=== PATIENT | male | born 1960 | race Caucasian/White ===

== ENCOUNTER 2024-08-25 07:57 | Outpatient (CLI) | payer OTHER, SELFPAY ==
--- OUTSIDE RECORDS SUMMARY | 2024-08-25 07:59 | XMS_ITS | Continuity of Care Document ---
Author Name [facility] Organization [facility] Care Team Providers Care Attendant [employer] Name Role Phone [facility] Unavailable Unavailable Problems Combined list of problems from Department of Defense and Veterans Affairs facilities. It does not include entries that were removed or entered in error. Problem Status Onset Date Problem Type Date of Resolution Comments Source Exposure to potentially hazardous substance ([facility] [id number]) Active 024 Condition Jan 21, 2024 Entered By: MARÍA CURIEL Comment: [facility]A Documentation Initiative [facility] shoulder separation right Active Condition DoD lumbago Active Condition DoD sensorineural hearing loss Active Condition DoD eczema Active Condition DoD hyperlipidemia Active Condition DoD hearing loss Active Condition 46 yo w ith job related hearin loss needing audiometry eval DoD osteoarthritis knee Active Condition DoD osteoarthritis Active Condition s/p h yaluronic acid inj x 3 DoD bursitis olecranon Active Condition DoD new patient ophthalmological exam Inactive Condition DoD presbyopia Active Condition order 1st BF Rx: OD -0.50-2.08e777 OS -0.50-2.20q073 Add +1.00 OU DoD chondromalacia Active Condition GR1 CMP. DoD joint pain, localized in the shoulder Active Condition SEE NOTE. DoD osteoarthritis localized primary knee Active Condition Rt knee. [facility] visit for: screening exam hypertension Inactive Condition Pt w/elevated BP today. Pt has been referred for 5 day BP check. Mbr will be TDY for 2 wks and then start 5 day check. [facility] visit for: services physical Active Condition NAD//Please see DD form 4505. 10 year total coronary heart disease risk 4%. Continued to stress TLC. Will call with results. 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 Angle of jaw closed fracture Active Condition [facility] Ankle pain (SNOMED CT 526930991) Active Condition [facility] Appendectomy Active Condition [facility] Louie's esophagus Active Condition [facility] Chronic rhinitis Active Condition [facility] Contact dermatitis of eyelid Active Condition [facility] Dermatitis (SNOMED CT 80768456) Active Condition [facility] DS EXPOSURE TO OIL-WELL FIRE SMOKE Active Condition [facility] DS/OIF EXPOSURE TO CONNIE-8 FUEL AND EXHAUST Active Condition [facility] DS/OIF EXPOSURE TO SAND/DUST STORMS Active Condition [facility] Dyslipidemia Active Condition [facility] Elbow joint pain Active Condition [facility] Erectile dysfunction (SNOMED CT 636699731) Active Condition [facility] Gastroesophageal reflux disease (SNOMED CT 468678607) Active Condition [facility] Iron deficiency Active Condition [facility] Low back pain (SNOMED CT 211190757) Active Condition [facility] Obesity Active Condition [facility] Obstructive sleep apnea of adult (SNOMED CT [id number]) Active Condition Nov 18, 2023 Entered By: TALITA GERBER Comment: apap 6-15 [facility] OIF EXPOSURE TO BURN PIT SMOKE Active Condition [facility] OIF EXPOSURE TO TRIETHYLCHOLINE Active Condition [facility] Open Treatment of Acute or Chronic Elbow Dislocation Active Condition [facility] Osteoarthritis of right hip joint (SNOMED CT 862882321313801) Active Condition Dec 25 2 Entered By: DEMETRIUS RAO Comment: R kneeFeb 2011 Entered By: DEMETRIUS RAO Comment: has done pt and injections- steroids and lubricating injects [facility] Osteoarthritis of right knee joint Active Condition [facility] Other Psoriasis Active Condition [facility] Pain of right shoulder joint Active Condition [facility] Restless legs Active Condition [facility] Vasectomy Status Active Condition [facility] Diagnosis: ICD-10-CM Z23 Encounter for immunization Active Diagnosis [facility] Diagnosis: ICD-10-CM H90.3 Sensorineural hearing loss, bilateral Active Diagnosis [facility] Diagnosis: ICD-10-CM Z01.20 Encounter for dental exam and cleaning w/o abnormal findings Active Diagnosis [facility] Diagnosis: ICD-10-CM H25.13 Age-related nuclear cataract, bilateral Active Diagnosis [facility] Diagnosis: ICD-10-CM E78.5 Hyperlipidemia, unspecified Active Diagnosis [facility] Diagnosis: ICD-10-CM M72.2 Plantar fascial fibromatosis Active Diagnosis [facility] Diagnosis: ICD-10-CM R09.81 Nasal congestion Active Diagnosis [facility] Diagnosis: ICD-10-CM J01.91 Acute recurrent sinusitis, unspecified Active Diagnosis [facility] Diagnosis: ICD-10-CM G47.33 Obstructive sleep apnea (adult) (pediatric) Active Diagnosis [facility] Diagnosis: ICD-10-CM J31.0 Chronic rhinitis Active Diagnosis [facility] Diagnosis: ICD-10-CM J01.90 Acute sinusitis, unspecified Active Diagnosis [facility] Diagnosis: ICD-10-CM L82.1 Other seborrheic keratosis Active Diagnosis [facility] Diagnosis: ICD-10-CM R21 Rash and other nonspecific skin eruption Active Diagnosis [facility] Diagnosis: ICD-10-CM Z46.1 Encounter for fitting and adjustment of hearing aid Active Diagnosis [facility] Diagnosis: ICD-10-CM K22.70 Louie's esophagus without dysplasia Active Diagnosis [facility] Diagnosis: ICD-10-CM M17.11 Unilateral primary osteoarthritis, right knee Active Diagnosis [facility] Medications Combined list of outpatient medications from Department of Defense and Veterans Affairs facilities.Medications provided include 1) outpatient medications from the last 15 months, and 2) patient-reported medications. Medication Details Route Status Patient Instructions Prescription Expires Prescription Number Last Dispense Date Ordering Provider Order Date Order Qty Source ACETAMINOPH EN 500MG TAB TAKE ONE TO TWO TABLETS EVERY 6 HOURS NEEDED FOR PAIN *NOT TO EXCEED 4000MG IN 24 HOURS FROM ALL SOURCES* ACTIVE 03/16/2025 [id number] 4 Demetria SMALL 2023 100 [facility] ACETAMINOPH EN 500MG TAB TAKE ONE TO TWO TABLETS EVERY 6 HOURS NEEDED FOR PAIN *NOT TO EXCEED 4000MG IN 24 HOURS FROM ALL SOURCES* DISCONT INUED 03/17/2024 [id number] 3 Demetria SMALL 2022 100 [facility] ACETAMINOPH EN 500MG TAB TAKE TWO TABLETS BY MOUTH AT BEDTIME ORAL ACTIVE DEANDRA DAMICO GLEN 2017 [facility] AMOXICILLIN TRIHYDRATE 500MG CAP TAKE FOUR CAPSULES BY MOUTH ONCE 1 HOUR PRIOR TO DENTAL PROCEDUR E ORAL 03/17/2024 [id number] Demetria SMALL 2022 4 [facility] AMOXICILLIN TRIHYDRATE 875MG/CLAVU LANATE K 125MG TAB TAKE 1 TABLET BY MOUTH TWICE A DAY FOR ACUTE SINUSITI S ORAL 02/23/2024 [id number] Demetria SMALL 2023 10 [facility] AMOXICILLIN -CLAVULANAT E POTASS (amoxicilli n/potassium clavulanate ), 875-125 MG, TABLET, ORAL, USANTIBIOTI CS,, 20 ea. BOTTLE Active [id number] 2023 20 Pharmac y [facility] y Benzonatate (The Switch) 100 CAPSULE in 1 BOTTLE Active [id number] 11/24/19 2 4 2023 30 Pharmac y [facility] y CETIRIZINE HCL 10MG TAB TAKE ONE TABLET BY MOUTH EVERY DAY FOR ALLERGIE S ORAL ACTIVE 01/24/2025 [id number] 4 Demetria SMALL 2023 90 [facility] CETIRIZINE HCL 10MG TAB TAKE ONE TABLET BY MOUTH EVERY DAY FOR ALLERGIE S ORAL DISCONT INUED 03/17/2024 [id number] Demetria SMALL 2022 90 [facility] DICLOFENAC NA 1% GEL,TOP APPLY 2 GRAMS TOPICALL Y FOUR TIMES A DAY NEEDED TO AFFECTED AREA FOR PAIN TOPICA L ACTIVE 03/16/2025 [id number] Demetria SMALL 2023 100 [facility] DICLOFENAC NA 1% GEL,TOP APPLY 2 GRAMS TOPICALL Y FOUR TIMES A DAY NEEDED TO AFFECTED AREA FOR PAIN. *USE DOSE CARD IN BOX TO MEASURE DOSE. MAX 32 GRAMS PER DAY. FOR SHOULDER PAIN TO AFFECTED AREA FOR PAIN. *USE DOSE CARD IN BOX TO MEASURE DOSE. MAX 32 GRAMS PER DAY. FOR SHOULDER PAIN TOPICA L DISCONT INUED 03/17/2024 [id number] Demetria SMALL GLEN 2022 100 [facility] FLUTICASONE PROPIONATE 50MCG/SPRAY SOLN,NASAL, 16GM SPRAY 2 SPRAYS IN EACH NOSTRIL EVERY DAY FOR ALLERGIE S NASAL SUSPEND ED 01/24/2025 [id number] Demetria SMALL SJ GLEN 2023 3 [facility] FLUTICASONE PROPIONATE 50MCG/SPRAY SOLN,NASAL, 16GM SPRAY 2 SPRAYS IN EACH NOSTRIL EVERY DAY FOR ALLERGIE S NASAL DISCONT INUED 03/17/2024 [id number] 4 GEOVANNYDemetria SJ CARROLL 2022 3 [facility] MECLIZINE HCL 25MG TAB,CHEWABL E CHEW ONE TABLET BY MOUTH THREE TIMES A DAY NEEDED FOR MOTION SICKNESS ORAL ACTIVE 03/16/2025 [id number] GEOVANNYDemetria 2023 30 [facility] MULTIVITAMI NS CAP/TAB TAKE 1 TABLET BY MOUTH EVERY DAY ORAL ACTIVE 03/16/2025 [id number] 4 GEOVANNYDemetria SJ CARROLL 2023 100 [facility] MULTIVITAMI NS CAP/TAB TAKE 1 TABLET BY MOUTH EVERY DAY ORAL DISCONT INUED 03/17/2024 [id number] Demetria SMALL SJ BEGUMTH 2022 100 [facility] OMEPRAZOLE 20MG CAP,EC TAKE ONE CAPSULE BY MOUTH EVERY DAY ON AN EMPTY STOMACH, AT LEAST 30 MINUTES PRIOR TO A MEAL TO DECREASE STOMACH ACID ORAL ACTIVE 03/16/2025 [id number] 4 GEOVANNYDemetria SJ CARROLL 2023 90 [facility] OMEPRAZOLE 20MG CAP,EC TAKE ONE CAPSULE BY MOUTH EVERY DAY ON AN EMPTY STOMACH, AT LEAST 30 MINUTES PRIOR TO A MEAL TO DECREASE STOMACH ACID ORAL DISCONT INUED 03/17/2024 [id number] 4 GEOVANNYDemetria SJ ROQUEBETH 2022 90 [facility] PRAVASTATIN NA 40MG TAB TAKE ONE TABLET BY MOUTH AT BEDTIME FOR CHOLESTE ROL ORAL ACTIVE 03/16/2025 [id number] GEOVANNYDemetria SJ ROQUEBETH 2023 60 [facility] PSEUDOEPHED RINE HCL 60MG TAB TAKE ONE TABLET BY MOUTH EVERY 6 HOURS NEEDED FOR CONGESTI ON ORAL 11/18/2023 [id number] LALY VERA E 2022 120 [facility] SIL[facility] 100MG TAB TAKE ONE-HALF TABLET BY MOUTH NEEDED FOR ERECTION S - TAKE 1 HOUR BEFORE ANTICIPA PATRIA SEXUAL ACTIVITY ORAL ACTIVE 03/16/2025 [id number] 4 GEOVANNYDemetria SJ ROQUEBETH 2023 9 [facility] SILDENAFIL CITRATE 100MG TAB TAKE ONE-HALF TABLET BY MOUTH NEEDED FOR ERECTION S - TAKE 1 HOUR BEFORE ANTICIPA PATRIA SEXUAL ACTIVITY ORAL DISCONT INUED 03/17/2024 [id number] 3 Demetria SMALL SJ ROQUEBETH 2022 9 [facility] SODIUM CHLORIDE 0.65% SOLN,NASAL SPRAY SPRAY 1-2 SPRAYS IN EACH NOSTRIL EVERY DAY NEEDED FOR NASAL DRYNESS NASAL 11/18/2023 [id number] LALY VERA E 2022 45 [place] [facility] VANICREAM APPLY THIN LAYER TOPICALL Y EVERY DAY TO ALL SKIN, IDEALLY WITHIN 3 MINUTES AFTER BATH OR SHOWER. TOPICA L ACTIVE 03/16/2025 [id number] 4 Demetria SMALL SJ ROQUEBETH 2023 454 [facility] VANICREAM APPLY THIN LAYER TOPICALL Y EVERY DAY TO ALL SKIN, IDEALLY WITHIN 3 MINUTES AFTER BATH OR SHOWER. TOPICA L DISCONT INUED 03/17/2024 [id number] 3 Demetria SMALL 2022 454 [facility] Allergies, Adverse Reactions, Alerts Combined list of allergies from Department of [facility] and [facility] facilities. It does not include entries that were removed or entered in error. Substance Category Reaction Severity Reaction type Status Date Reported Comments Source Morphine Drug allergy (disorder) Urticaria active 5 [facility] MORPHINE SULFATE INJ Propensity to adverse reactions to drug (finding) Urticaria active 5 [facility] Immunizations Combined list of available immunizations from the Department of [facility] and [facility] facilities. Immunization Series Date Given Administered By Site Reaction Lot Number CVX Code Drug Directional Driller Status Comments Source INFLUENZA, SPLIT VIRUS, TRIVALENT, PF 2023 DORETHA HARRISON LEFT DELTO ID [id number] 140 complet ed [facility] INFLUENZA, INJECTABLE, QUADRIVALENT, PRESERVATIVE FREE 2022 SALAS EDWARDS LEFT DELTO ID [id number] 150 complet ed [facility] ZOSTER RECOMBINANT 2 2022 SALAS EDWARDS LEFT DELTO ID [id number] 187 complet ed [id number] 07/04/24 [facility] ZOSTER RECOMBINANT 1 2022 TOAN EASTON LEFT DELTO ID [id number] 187 complet ed [id number] [facility] INFLUENZA, INJECTABLE, QUADRIVALENT, PRESERVATIVE FREE 2021 150 complet ed [facility] COVID-19 (PFIZER), MRNA, LNP-S, PF, 30 MCG/0.3 ML DOSE 3 2020 208 complet ed PFR; [id number]; 2 [facility] INFLUENZA, INJECTABLE, QUADRIVALENT, PRESERVATIVE FREE 2020 150 complet ed [facility] TDAP 2020 115 complet ed [facility] COVID-19 (MODERNA), MRNA, LNP-S, PF, 100 MCG/0.5 ML DOSE 2 2020 207 complet ed [place] [facility] COVID-19 (MODERNA), MRNA, LNP-S, PF, 100 MCG/0.5 ML DOSE 1 2020 207 [facility], INJECTABLE, QUADRIVALENT, PRESERVATIVE FREE 2019 150 complet ed [facility] INFLUENZA, INJECTABLE, QUADRIVALENT 2018 158 complet ed Partner: [facility]. Administe red by: [facility] Clinician (NPI=Not Provided) . Partner 3 Lot#: [id number] Mfr: [facility] INFLUENZA, SEASONAL, INJECTABLE, PRESERVATIVE FREE 2017 140 complet ed [facility] INFLUENZA, INJECTABLE, MDCK, PRESERVATIVE FREE, QUADRIVALENT 2016 171 complet ed Partner: [facility] . Administe red by: [facility] Clinician (NPI=Not Provided) . Partner 3 Lot#: [id number] Mfr: [facility] INFLUENZA, SEASONAL, INJECTABLE, PRESERVATIVE FREE [address] [facility] TDAP 2015 115 complet ed [employer], Lot [id number], Exp 8 [facility] TDAP 2008 115 complet ed [facility] tetanus toxoid, reduced diphtheria toxoid, and acellular pertu is vaccine, adsorbed 1 2007 Unknown, Provider [id number] Sanofi Pasteur ([facility]) complet ed tetanus toxoid, reduced diphtheri a toxoid, and acellular pertussis vaccine, adsorbed [facility] influenza virus vaccine, live, attenuated, for intranasal use 1 2006 Unknown, Provider [id number] [employer] ([facility]) complet ed influenza virus vaccine, live, attenuate d, for intranasa l use DoD influenza virus vaccine, split virus (incl. purified surface antigen)-reti red CODE 1 2005 [id number] Sanofi Pasteur ([facility]) complet ed influenza virus vaccine, split virus (incl. purified surface antigen)- retired CODE DoD influenza virus vaccine, split virus (incl. purified surface antigen)-reti red CODE 1 2004 UNK 15 Unknown (UNK) comple t ed influenza virus vaccine, split virus (incl. purified surface antigen)- retired CODE DoD anthrax vaccine 4 2003 [id number] [employer] ([facility]) complet ed anthrax vaccine DoD influenza virus vaccine, whole virus 0 2002 [id number] [employer] (PW[facility]) complet ed influenza virus vaccine, whole virus DoD anthrax vaccine 3 2002 24 Transcribed (TRS) complet ed anthrax vaccine DoD anthrax vaccine 2 2002 [id number] [employer] [facility] ([facility]) complet ed anthrax vaccine DoD vaccinia (smallpox) vaccine, diluted 0 2002 [id number] Wy[employer]Ayer[employer] ([facility]) complet ed vaccinia (smallpox ) vaccine, diluted DoD anthrax vaccine 1 2002 [id number] [employer] [facility] ([facility]) complet ed anthrax vaccine DoD influenza virus vaccine, whole virus 0 2001 [id number] 16 Sanofi Pasteur ([facility]) complet ed influenza virus vaccine, whole virus [facility] meningococcal polysaccharid e vaccine (MPSV4) 0 2001 [id number] Sanofi Pasteur ([facility]) complet ed meningoco ccal polysacch aride vaccine (MPSV4) DoD typhoid vaccine, parenteral, other than acetone-kille d, dried 0 2001 [id number] Sanofi Pasteur ([facility]) complet ed typhoid vaccine, parentera l, other than acetone-k illed, dried DoD influenza virus vaccine, whole virus 0 2000 [id number] Sanofi Pasteur ([facility]) complet ed influenza virus vaccine, whole virus [facility] tetanus and diphtheria toxoids, adsorbed, preservative free, for adult use (2 Lf of tetanus toxoid and 2 Lf of diphtheria toxoid) 0 1996 [id number] Lederle (LED) comple t ed tetanus and diphtheri a toxoids, adsorbed, preservat cristiana free, for adult use (2 Lf of tetanus toxoid and 2 Lf of diphtheri a toxoid) DoD influenza virus vaccine, whole virus 0 [id number] [employer]Ayer[employer] (Inactive) ([place]) complet ed influenza virus vaccine, whole virus DoD hepatitis A vaccine, adult dosage 2 1996 [id number] [employer] (SKB) complet ed hepatitis A vaccine, adult dosage DoD tuberculin skin test; purified protein derivative solution, intradermal 1 1992 Unknown, Provider CON 96 Juan Jantoine (CON) complet ed tuberculi n skin test; purified protein derivativ e solution, intraderm al DoD meningococcal polysaccharid e vaccine (MPSV4) 1 1991 32 (MV) complet ed meningoco ccal polysacch aride vaccine (MPSV4) DoD hepatitis A vaccine, adult dosage 1 1991 52 (MV) complet ed hepatitis A vaccine, adult dosage DoD yellow fever vaccine 1 1991 37 (MV) complet ed yellow fever vaccine DoD typhoid vaccine, parenteral, acetone-kille d, dried (U.S. ) 1 1991 53 (MV) complet ed typhoid vaccine, parentera l, acetone-k illed, dried ([place].S. ) DoD trivalent poliovirus vaccine, live, oral 1 1985 02 (MV) complet ed trivalent polioviru s vaccine, live, oral DoD measles, mumps and rubella virus vaccine 0 1985 03 () Not Given measles, mumps and rubella virus vaccine DoD tetanus and diphtheria toxoids, adsorbed, preservative free, for adult use (2 Lf of tetanus toxoid and 2 Lf of diphtheria toxoid) 1 1985 09 (MV) complet ed tetanus and diphtheri a toxoids, adsorbed, preservat cristiana free, for adult use (2 Lf of tetanus toxoid and 2 Lf of diphtheri a toxoid) DoD Results Combined list of recent chemistry, hematology and other laboratory results from Department of Defense and Veterans Affairs, ranging from 15 months to all on record, depending upon the facility. Order Name Results Value Reference Range Date Interpretation Specimen Comments Source AST/SGOT ASPARTATE AMINOTRANSF ERASE [ENZYMATIC ACTIVITY/VO LUME] IN SERUM OR PLASMA 28 U/L 11 - 34 05/30 Specimen Type: PLASMA No comment entered. Ordering Provider: DEANDRA SMALL Report Released Date/Time: March 15, 2024 08:34 AM Reporting Lab: [facility] [address] Performing Lab: [facility] [address] [place] [facility] ALT/SGPT ALANINE AMINOTRANSF ERASE [ENZYMATIC ACTIVITY/VO LUME] IN SERUM OR PLASMA 21 U/L <44 - 44 05/30 Specimen Type: PLASMA No comment entered. Ordering Provider: DEANDRA SMALL Report Released Date/Time: March 15, 2024 08:34 AM Reporting Lab: [facility] [address] Performing Lab: [facility] [address] [place] [facility] LIPID PANEL,NON -FASTING CHOLESTEROL [MASS/VOLUM E] IN SERUM OR PLASMA 174 mg/dL <199 - 199 05/30 Specimen Type: PLASMA No comment entered. Ordering Provider: DEANDRA SMALL Report Released Date/Time: March 15, 2024 08:34 AM Reporting Lab: [facility] [address] Performing Lab: [facility] [address] [place] [facility] LIPID PANEL,NON -FASTING CHOLESTEROL IN HDL [MASS/VOLUM E] IN SERUM OR PLASMA 48 mg/dL 40 05/30 Specimen Type: PLASMA No comment entered. Ordering Provider: DEANDRA SMALL Report Released Date/Time: March 15, 2024 08:34 AM Reporting Lab: [facility] [address] Performing Lab: [facility] [address] [place] [facility] LIPID PANEL,NON -FASTING CHOLESTEROL IN LDL [MASS/VOLUM E] IN SERUM OR PLASMA BY CALCULATION 98 mg/dL <99 - 99 05/30 Specimen Type: PLASMA No comment entered. Ordering Provider: DEANDRA SMALL Report Released Date/Time: March 15, 2024 08:34 AM Reporting Lab: [facility] [address] Performing Lab: [facility] [address] [place] [facility] LIPID PANEL,NON -FASTING CHOLESTEROL IN VLDL [MASS/VOLUM E] IN SERUM OR PLASMA BY CALCULATION 28 mg/dL <29 - 29 05/30 Specimen Type: PLASMA No comment entered. Ordering Provider: DEANDRA SMALL Report Released Date/Time: March 15, 2024 08:34 AM Reporting Lab: [facility] [address] Performing Lab: [facility] [address] [place] [facility] LIPID PANEL,NON -FASTING CHOLESTEROL NON HDL [MASS/VOLUM E] IN SERUM OR PLASMA 126 mg/dL <129 - 129 05/30 Specimen Type: PLASMA No comment entered. Ordering Provider: DEANDRA SMALL Report Released Date/Time: March 15, 2024 08:34 AM Reporting Lab: [facility] [address] Performing Lab: [facility] [address] [place] [facility] LIPID PANEL,NON -FASTING TRIGLYCERID E [MASS/VOLUM E] IN SERUM OR PLASMA 142 mg/dL <149 - 149 05/30 Specimen Type: PLASMA No comment entered. Ordering Provider: DEANDRA SMALL Report Released Date/Time: March 15, 2024 08:34 AM Reporting Lab: [facility] [address] Performing Lab: [facility] [address] [place] [facility] AST/SGOT ASPARTATE AMINOTRANSF ERASE [ENZYMATIC ACTIVITY/VO LUME] IN SERUM OR PLASMA 35 U/L <34 - 34 03/15 H Specimen Type: PLASMA Comment: Elevated triglycerid e result from a non-fasting specimen should be interpreted with caution. A fasting panel is recommended for accurate triglycerid es when trigs are >200 from a non-fasting specimen. Ordering Provider: DEANDRA SMALL Report Released Date/Time: March 17, 2023 09:36 AM Reporting Lab: [facility] [address] Performing Lab: [facility] [address] [place] [facility] ALT/SGPT ALANINE AMINOTRANSF ERASE [ENZYMATIC ACTIVITY/VO LUME] IN SERUM OR PLASMA 50 U/L <55 - 55 03/15 Specimen Type: PLASMA Comment: Elevated triglycerid e result from a non-fasting specimen should be interpreted with caution. A fasting panel is recommended for accurate triglycerid es when trigs are >200 from a non-fasting specimen. Ordering Provider: DEANDRA SMALL Report Released Date/Time: March 17, 2023 09:36 AM Reporting Lab: [facility] [address] Performing Lab: [facility] [address] [place] [facility] HEMOGLOBI N A1C HEMOGLOBIN A1C/HEMOGLO BIN.TOTAL IN BLOOD 5.6 4.0 - 6.0 03/15 Specimen Type: BLOOD Comment: Values obtained from A1C measurement s can vary. For typical A1C assays, a reported value of 7.0 could actually be between 6.7 and 7.3 if measured by a reference method. A reported value of 9.0 could actually be between 8.7 and 9.3. Ref: [email or web address]/[place] [email or web address] Ordering Provider: DEANDRA SMALL Report Released Date/Time: March 17, 2023 09:36 AM Reporting Lab: [facility] [address] Performing Lab: [place] [id number] [facility] CBC LEUKOCYTES [#/VOLUME] IN BLOOD BY AUTOMATED COUNT 6.00 10*3/u L 4.0 - 11.0 03/15 Specimen Type: BLOOD No comment entered. Ordering Provider: DEANDRA SMALL Report Released Date/Time: March 17, 2023 09:36 AM Reporting Lab: [facility] [address] Performing Lab: [facility] [address] [place] [facility] CBC ERYTHROCYTE S [#/VOLUME] IN BLOOD BY AUTOMATED COUNT 5.49 10*6/u L 4.6 - 6.2 03/15 Specimen Type: BLOOD No comment entered. Ordering Provider: DEANDRA SMALL Report Released Date/Time: March 17, 2023 09:36 AM Reporting Lab: [facility] [address] Performing Lab: [place] [address] [facility] IS [facility] CBC HEMOGLOBIN [MASS/VOLUM E] IN BLOOD 15.7 g/dL 13.5 - 17.9 03/15 Specimen Type: BLOOD No comment entered. Ordering Provider: DEANDRA SMALL Report Released Date/Time: March 17, 2023 09:36 AM Reporting Lab: [facility] [address] Performing Lab: [facility] [address] [place] [facility] CBC HEMATOCRIT [VOLUME FRACTION] OF BLOOD BY AUTOMATED COUNT 48.9 41 - 54 03/15 Specimen Type: BLOOD No comment entered. Ordering Provider: DEANDRA SMALL Report Released Date/Time: March 17, 2023 09:36 AM Reporting Lab: [facility] [address] Performing Lab: [facility] [address] [place] [facility] CBC MCV [ENTITIC VOLUME] BY AUTOMATED COUNT 89.1 fL 80 - 100 03/15 Specimen Type: BLOOD No comment entered. Ordering Provider: DEANDRA SMALL Report Released Date/Time: March 17, 2023 09:36 AM Reporting Lab: [facility] [address] Performing Lab: [facility] [address] [place] [facility] CBC MCH [ENTITIC MASS] BY AUTOMATED COUNT 28.6 pg 27 - 33 03/15 Specimen Type: BLOOD No comment entered. Ordering Provider: DEANDRA SMALL Report Released Date/Time: March 17, 2023 09:36 AM Reporting Lab: [facility] [address] Performing Lab: [facility] [address] [place] [facility] CBC MCHC [MASS/VOLUM E] BY AUTOMATED COUNT 32.1 g/dL 32.0 - 37.5 03/15 Specimen Type: BLOOD No comment entered. Ordering Provider: DEANDRA SMALL Report Released Date/Time: March 17, 2023 09:36 AM Reporting Lab: [facility] [address] Performing Lab: [facility] [address] [place] [facility] CBC PLATELETS [#/VOLUME] IN BLOOD BY AUTOMATED COUNT 222 10*3/u L 150 - 400 03/15 Specimen Type: BLOOD No comment entered. Ordering Provider: DEANDRA SMALL Report Released Date/Time: March 17, 2023 09:36 AM Reporting Lab: [facility] [address] Performing Lab: [facility] [address] [place] [facility] CBC PLATELET MEAN VOLUME [ENTITIC VOLUME] IN BLOOD BY AUTOMATED COUNT 10.2 fL 7.4 - 10.4 03/15 Specimen Type: BLOOD No comment entered. Ordering Provider: DEANDRA SMALL Report Released Date/Time: March 17, 2023 09:36 AM Reporting Lab: [facility] [address] Performing Lab: [facility] [address] [facility] CBC ERYTHROCYTE DISTRIBUTIO N WIDTH [RATIO] BY AUTOMATED COUNT 13.7 11.5 - 14.5 03/15 Specimen Type: BLOOD No comment entered. Ordering Provider: DEANDRA SMALL Report Released Date/Time: March 17, 2023 09:36 AM Reporting Lab: [facility] [address] Performing Lab: [facility] [address] [facility] LIPID PANEL,NON -FASTING CHOLESTEROL [MASS/VOLUM E] IN SERUM OR PLASMA 238 mg/dL <199 - 199 03/15 H Specimen Type: PLASMA Comment: Elevated triglycerid e result from a non-fasting specimen should be interpreted with caution. A fasting panel is recommended for accurate triglycerid es when trigs are >200 from a non-fasting specimen. Ordering Provider: DEANDRA SMALL Report Released Date/Time: March 17, 2023 09:36 AM Reporting Lab: [facility] [address] Performing Lab: [facility] [address] [facility] IS [facility] LIPID PANEL,NON -FASTING CHOLESTEROL IN HDL [MASS/VOLUM E] IN SERUM OR PLASMA 46 mg/dL 40 03/15 Specimen Type: PLASMA Comment: Elevated triglycerid e result from a non-fasting specimen should be interpreted with caution. A fasting panel is recommended for accurate triglycerid es when trigs are >200 from a non-fasting specimen. Ordering Provider: DEANDRA SMALL Report Released Date/Time: March 17, 2023 09:36 AM Reporting Lab: [facility] [address] Performing Lab: [facility] [address] [place] [facility] LIPID PANEL,NON -FASTING CHOLESTEROL IN LDL [MASS/VOLUM E] IN SERUM OR PLASMA BY CALCULATION 136 mg/dL <99 - 99 03/15 H Specimen Type: PLASMA Comment: Elevated triglycerid e result from a non-fasting specimen should be interpreted with caution. A fasting panel is recommended for accurate triglycerid es when trigs are >200 from a non-fasting specimen. Ordering Provider: DEANDRA SMALL Report Released Date/Time: March 17, 2023 09:36 AM Reporting Lab: [facility] [address] Performing Lab: [facility] [address] [place] [facility] LIPID PANEL,NON -FASTING CHOLESTEROL IN VLDL [MASS/VOLUM E] IN SERUM OR PLASMA BY CALCULATION 56 mg/dL <29 - 29 03/15 H Specimen Type: PLASMA Comment: Elevated triglycerid e result from a non-fasting specimen should be interpreted with caution. A fasting panel is recommended for accurate triglycerid es when trigs are >200 from a non-fasting specimen. Ordering Provider: DEANDRA SMALL Report Released Date/Time: March 17, 2023 09:36 AM Reporting Lab: [facility] [address] Performing Lab: [facility] [address] [place] [facility] LIPID PANEL,NON -FASTING CHOLESTEROL NON HDL [MASS/VOLUM E] IN SERUM OR PLASMA 192 mg/dL <129 - 129 03/15 H Specimen Type: PLASMA Comment: Elevated triglycerid e result from a non-fasting specimen should be interpreted with caution. A fasting panel is recommended for accurate triglycerid es when trigs are >200 from a non-fasting specimen. Ordering Provider: DEANDRA SMALL Report Released Date/Time: March 17, 2023 09:36 AM Reporting Lab: [facility] [address] Performing Lab: [facility] [address] [place] [facility] LIPID PANEL,NON -FASTING TRIGLYCERID E [MASS/VOLUM E] IN SERUM OR PLASMA 279 mg/dL <149 - 149 03/15 H Specimen Type: PLASMA Comment: Elevated triglycerid e result from a non-fasting specimen should be interpreted with caution. A fasting panel is recommended for accurate triglycerid es when trigs are >200 from a non-fasting specimen. Ordering Provider: DEANDRA SMALL Report Released Date/Time: March 17, 2023 09:36 AM Reporting Lab: [facility] [address] Performing Lab: [place] [address] [place] [facility] BASIC METABOLIC PANEL+MG CREATININE [MASS/VOLUM E] IN SERUM OR PLASMA 1.1 mg/dL 0.7 - 1.2 03/15 Specimen Type: PLASMA Comment: Elevated triglycerid e result from a non-fasting specimen should be interpreted with caution. A fasting panel is recommended for accurate triglycerid es when trigs are >200 from a non-fasting specimen. Ordering Provider: DEANDRA SMALL Report Released Date/Time: March 17, 2023 09:36 AM Reporting Lab: [facility] [address] Performing Lab: [facility] [address] [place] [facility] BASIC METABOLIC PANEL+MG UREA NITROGEN [MASS/VOLUM E] IN SERUM OR PLASMA 20 mg/dL 8 - 26 03/15 Specimen Type: PLASMA Comment: Elevated triglycerid e result from a non-fasting specimen should be interpreted with caution. A fasting panel is recommended for accurate triglycerid es when trigs are >200 from a non-fasting specimen. Ordering Provider: DEANDRA SMALL Report Released Date/Time: March 17, 2023 09:36 AM Reporting Lab: [facility] [address] Performing Lab: [facility] [address] [place] [facility] BASIC METABOLIC PANEL+MG GLUCOSE [MASS/VOLUM E] IN SERUM OR PLASMA 94 mg/dL 70 - 100 03/15 Specimen Type: PLASMA Comment: Elevated triglycerid e result from a non-fasting specimen should be interpreted with caution. A fasting panel is recommended for accurate triglycerid es when trigs are >200 from a non-fasting specimen. Ordering Provider: DEANDRA SMALL Report Released Date/Time: March 17, 2023 09:36 AM Reporting Lab: [facility] [address] Performing Lab: [facility] [address] [place] [facility] BASIC METABOLIC PANEL+MG SODIUM [MOLES/VOLU ME] IN SERUM OR PLASMA 142 mmol/L 136 - 145 03/15 Specimen Type: PLASMA Comment: Elevated triglycerid e result from a non-fasting specimen should be interpreted with caution. A fasting panel is recommended for accurate triglycerid es when trigs are >200 from a non-fasting specimen. Ordering Provider: DEANDRA SMALL Report Released Date/Time: March 17, 2023 09:36 AM Reporting Lab: [facility] [address] Performing Lab: [place] [address] [place] [facility] BASIC METABOLIC PANEL+MG POTASSIUM [MOLES/VOLU ME] IN SERUM OR PLASMA 4.4 mmol/L 3.5 - 5.1 03/15 Specimen Type: PLASMA Comment: Elevated triglycerid e result from a non-fasting specimen should be interpreted with caution. A fasting panel is recommended for accurate triglycerid es when trigs are >200 from a non-fasting specimen. Ordering Provider: DEANDRA SMALL Report Released Date/Time: March 17, 2023 09:36 AM Reporting Lab: [facility] [address] Performing Lab: [facility] [address] [place] [facility] BASIC METABOLIC PANEL+MG CHLORIDE [MOLES/VOLU ME] IN SERUM OR PLASMA 110 mmol/L 98 - 107 03/15 H Specimen Type: PLASMA Comment: Elevated triglycerid e result from a non-fasting specimen should be interpreted with caution. A fasting panel is recommended for accurate triglycerid es when trigs are >200 from a non-fasting specimen. Ordering Provider: DEANDRA SMALL Report Released Date/Time: March 17, 2023 09:36 AM Reporting Lab: [facility] [address] Performing Lab: [facility] [address] [place] [facility] BASIC METABOLIC PANEL+MG CARBON DIOXIDE, TOTAL [MOLES/VOLU ME] IN SERUM OR PLASMA 23 mmol/L 22 - 29 03/15 Specimen Type: PLASMA Comment: Elevated triglycerid e result from a non-fasting specimen should be interpreted with caution. A fasting panel is recommended for accurate triglycerid es when trigs are >200 from a non-fasting specimen. Ordering Provider: DEANDRA SMALL Report Released Date/Time: March 17, 2023 09:36 AM Reporting Lab: [facility] [address] Performing Lab: [place] [address] [place] [facility] BASIC METABOLIC PANEL+MG CALCIUM [MASS/VOLUM E] IN SERUM OR PLASMA 9.5 mg/dL 8.4 - 10.2 03/15 Specimen Type: PLASMA Comment: Elevated triglycerid e result from a non-fasting specimen should be interpreted with caution. A fasting panel is recommended for accurate triglycerid es when trigs are >200 from a non-fasting specimen. Ordering Provider: DEANDRA SMALL Report Released Date/Time: March 17, 2023 09:36 AM Reporting Lab: [facility] [address] Performing Lab: [facility] [address] [place] [facility] BASIC METABOLIC PANEL+MG MAGNESIUM [MASS/VOLUM E] IN SERUM OR PLASMA 2.1 mg/dL 1.6 - 2.6 03/15 Specimen Type: PLASMA Comment: Elevated triglycerid e result from a non-fasting specimen should be interpreted with caution. A fasting panel is recommended for accurate triglycerid es when trigs are >200 from a non-fasting specimen. Ordering Provider: DEANDRA SMALL Report Released Date/Time: March 17, 2023 09:36 AM Reporting Lab: [facility] [address] Performing Lab: [facility] [address] [place] [facility] BASIC METABOLIC PANEL+MG ANION GAP IN SERUM OR PLASMA 9 mmol/L 5 - 15 03/15 Specimen Type: PLASMA Comment: Elevated triglycerid e result from a non-fasting specimen should be interpreted with caution. A fasting panel is recommended for accurate triglycerid es when trigs are >200 from a non-fasting specimen. Ordering Provider: DEANDRA SMALL Report Released Date/Time: March 17, 2023 09:36 AM Reporting Lab: [facility] [address] Performing Lab: [facility] [address] [facility] BASIC METABOLIC PANEL+MG GLOMERULAR FILTRATION RATE/1.73 SQ M.PREDICTED [VOLUME RATE/AREA] IN SERUM, PLASMA OR BLOOD BY CREATININE- BASED FORMULA (CKD-EPI 2020) 76 60 03/15 Specimen Type: PLASMA Comment: Elevated triglycerid e result from a non-fasting specimen should be interpreted with caution. A fasting panel is recommended for accurate triglycerid es when trigs are >200 from a non-fasting specimen. Ordering Provider: DEANDRA SMALL Report Released Date/Time: March 17, 2023 09:36 AM Reporting Lab: [facility] [address] Performing Lab: [facility] [address] [facility] HEMOGLOBI N A1C HEMOGLOBIN A1C/HEMOGLO BIN.TOTAL IN BLOOD 5.5 4.0 - 6.0 03/17 Specimen Type: BLOOD Comment: Values obtained from A1C measurement s can vary. For typical A1C assays, a reported value of 7.0 could actually be between 6.7 and 7.3 if measured by a reference method. A reported value of 9.0 could actually be between 8.7 and 9.3. Ref: http://www. ngsp.org/[place] Pdata.asp Ordering Provider: COLLEEN DAMICO Report Released Date/Time: Mar 09, 2022 08:43 AM Reporting Lab: [facility] [address] Performing Lab: [facility] [address] [facility] Vital Signs Combined list of inpatient and outpatient Vital Signs from Department of Defense and Veterans Affairs, ranging from 12 months to all on record, depending upon the facility. Vital Sign Value Date Comments Source SYSTOLIC BLOOD PRESSURE 153 08/03/2024 14:10:18 [facility] DIASTOLIC BLOOD PRESSURE 92 08/03/2024 14:10:18 [facility] TEMPERATURE 98.5 08/03/2024 14:10:18 [facility] PULSE 64 08/03/2024 14:10:18 [facility] SYSTOLIC BLOOD PRESSURE 135 03/15/2024 07:58:13 [facility] DIASTOLIC BLOOD PRESSURE 86 03/15/2024 07:58:13 [facility] PULSE OXIMETRY 96 03/15/2024 07:58:13 [facility] WEIGHT 226.8 03/15/2024 07:58:13 [facility] BMI 34kg/m2 03/15/2024 07:58:13 [facility] PAIN 0 03/15/2024 07:58:13 [facility] HEIGHT 68.1 03/15/2024 07:58:13 [facility] TEMPERATURE 97.5 03/15/2024 07:58:13 [facility] PULSE 62 03/15/2024 07:58:13 [facility] RESPIRATION 18 03/15/2024 07:58:13 [facility] SYSTOLIC BLOOD PRESSURE 150 01/24/2024 14:46:41 [facility] DIASTOLIC BLOOD PRESSURE 91 01/24/2024 14:46:41 [facility] PULSE OXIMETRY 97 01/24/2024 14:46:41 [facility] TEMPERATURE 98.4 01/24/2024 14:46:41 [facility] PULSE 73 01/24/2024 14:46:41 [facility] RESPIRATION 18 01/24/2024 14:46:41 [facility] SYSTOLIC BLOOD PRESSURE 143 10/19/2023 13:00:59 [place] [facility] DIASTOLIC BLOOD PRESSURE 92 10/19/2023 13:00:59 [facility] PULSE OXIMETRY 96% 10/19/2023 13:00:59 [facility] WEIGHT 225.8 10/19/2023 13:00:59 [facility] BMI 34kg/m2 10/19/2023 13:00:59 [facility] PAIN 0 10/19/2023 13:00:59 [facility] TEMPERATURE 97.8 10/19/2023 13:00:59 [facility] PULSE 84 10/19/2023 13:00:59 [facility] RESPIRATION 18 10/19/2023 13:00:59 [facility] Encounters Combined list of: 1) Encounters from Department of Veterans Affairs facilities going back up to thelast 18 months. 2) Encounters from the Department of Defense facilities going back up to 280 months. Location Location Details Encounter Type Encounter Number Reason For Visit Attending Provider ADM Date DC Date Status Disposition Source [facility]) OUTPATIENT [id number] F/U Rash NEEL WATERS 06/17 Released w/o Limitations [facility] OUTPATIENT [id number] puffy eyes SALTY HUEY H 10/02 Released w/o Limitations [facility] ) OUTPATIENT [id number] eye exam MELQUIADES LIRA 12/24 Released w/o Limitations [facility] OUTPATIENT [id number] Annual PHA LIN NI 07/15 Released w/o Limitations [facility]) OUTPATIENT [id number] 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 DONNA Roth 09/08 Released with Work/Duty Limitations [facility] OUTPATIENT [id number] R JAVIER Bauer 09/15 Released with Work/Duty Limitations [facility] [place] [place] OUTPATIENT [id number] f/u mri done r JAVIER Bauer 10/21 Released w/o Limitations [facility] ) OUTPATIENT [id number] GEN EYE EXAM CURT ALATORRE 12/01 Released w/o Limitations ANSHU Saab(P Optomet ry) [place] [place] [place] OUTPATIENT [id number] elbow/r ight/te nder/sh oulder/ neck/so re/pain bernardo RONOEY MADELYN 12/16 Released w/o Limitations [facility] [place] [place] [facility] [place] [place] OUTPATIENT [id number] staffor d pt rt knee ck medicat ion and QI Maciel 02/10 Released w/o Limitations [facility] [place] [place] [place] [place]) OUTPATIENT [id number] left wrist pain YVAN COOK Evens 02/15 Released with Work/Duty Limitations [facility] [place] [facility] [place]) OUTPATIENT [id number] [employer] AKUA TORRES 04/20 Released w/o Limitations [facility] [place] [facility] [place] OUTPATIENT [id number] injecti ons right knee ORI CHINO 05/25 Released w/o Limitations [facility] [place] [facility] [place] OUTPATIENT [id number] right knee injecti on # 3 ORI CHINO 06/08 Released w/o Limitations [facility] [facility] [facility] OUTPATIENT [id number] hyalgan r knee #3 ORI CHINO 06/22 Released w/o Limitations [facility] [place] [facility] [place] OUTPATIENT [id number] annual PHA JAVIER RUELAS 07/21 Released w/o Limitations [place] [place] [facility] [facility] [place] [id number] HEARING LOSS ANNI SHERMAN Ann 08/05 Released w/o Limitations [facility] [employer] [place]([facility]) [facility] [employer] [facility] OUTPATIENT [id number] retirem ent physica AKUA Alexander 10/11 Released w/o Limitations [facility] [employer] [place] _FH_[facility] AD 2) [place] [facility] OFFICE O/P EST MOD 30-39 MIN [id number] Diagnos is: ICD-10- CM M17.11 Unilate ral primary osteoar thritis , right knee
CRISTOBAL DAMICO 03/17 [facility] [place] [facility] Outpatient Encounter [id number] 05/20 [place] [facility] [place] [facility] Outpatient Encounter [id number] 05/20 [place] [facility] [place] [facility] Outpatient Encounter [id number] 05/22 [place] [facility] MOD SED SAME PHYS/QHP 5/>YRS [id number] Diagnos is: ICD-10- CM K22.70 Louie 's esophag us without dysplas ia
RICKEY GIFFORD 05/24 [place] [facility] [place] [facility] Outpatient Encounter [id number] 05/24 [place] [facility] [place] [facility] Outpatient Encounter [id number] BIANCA CULLEN 05/26 [place] [facility] [place] [facility] Outpatient Encounter [id number] KELLY ZUNIGA 06/08 [place] [facility] HEARING AID CHECK BOTH EARS [id number] Diagnos is: ICD-10- CM Z46.1 Encount er for fitting and adjustm ent of hearing aid<br/ > BELKIS REED 06/09 [facility] OFFICE O/P EST MOD 30-39 MIN [id number] Diagnos is: ICD-10- CM H25.13 Age-rel ated nuclear catarac t, bilater al
GRAMATES,P EGGY H 06/29 [facility] OFFICE O/P EST SF 10-19 MIN [id number] Diagnos is: ICD-10- CM R21 Rash and other nonspec ific skin eruptio n
JUAN LUIS MAK W 06/29 [facility] UNLISTED SPEC DERM SVC/PX [id number] Diagnos is: ICD-10- CM R21 Rash and other nonspec ific skin eruptio n
PARVIZ DO 06/29 [facility] Outpatient Encounter [id number] Diagnos is: ICD-10- CM L82.1 Other seborrh eic keratos is
MIRIAM CARTER 06/30 [facility] Outpatient Encounter [id number] 07/01 [facility] IMMUNIZATI ON ADMIN EACH ADD [id number] Diagnos is: ICD-10- CM Z23 Encount er for immuniz ation<b r/> DAVID EDWARDS 08/30 [facility] Outpatient Encounter [id number] KIMBERLY CARD 10/18 [facility] OFFICE O/P EST LOW 20-29 MIN [id number] Diagnos is: ICD-10- CM J01.90 Acute sinusit is, unspeci fied
DUANE VERA E 10/19 [facility] Outpatient Encounter [id number] 10/19 [facility] Outpatient Encounter [id number] Diagnos is: ICD-10- CM J31.0 Chronic rhiniti s
CONSTANTINEINGN ICOLE M 10/22 [facility] PT EDUCATION NOC INDIVID [id number] Diagnos is: ICD-10- CM G47.33 Obstruc tive sleep apnea (adult) (pediat arlette)
YANIV GERBER S 11/18 [facility] Outpatient Encounter [id number] 12/03 [facility] Outpatient Encounter [id number] PARVIZ PICKETT 01/23 [facility] OFFICE O/P EST MOD 30 MIN [id number] Diagnos is: ICD-10- CM J01.91 Acute recurre nt sinusit is, unspeci fied
ME PIERRE SMALL 01/23 [facility] Outpatient Encounter [id number] 01/23 [facility] OFFICE O/P EST MOD 30 MIN [id number] Diagnos is: ICD-10- CM R09.81 Nasal congest ion<br/ > RAZ ANDUJAR ID 03/02 [facility] OFFICE O/P EST MOD 30 MIN [id number] Diagnos is: ICD-10- CM M72.2 Plantar fascial fibroma tosis<b r/> ME PIERRE SMALL 03/15 [facility] Outpatient Encounter [id number] 06/01 [facility] Outpatient Encounter [id number] Diagnos is: ICD-10- CM E78.5 Hyperli pidemia , unspeci fied
ME GEOVANNY PIERRE BEGUMTH 06/09 [facility] Outpatient Encounter [id number] 06/23 [facility] O/P EST MOD 30 MIN [id number] Diagnos is: ICD-10- CM H25.13 Age-rel ated nuclear catarac t, bilater al
GEORGIALEIGH GREENE A 07/12 [facility] DENTAL PANORAMIC IMAGE [id number] Diagnos is: ICD-10- CM Z01.20 Encount er for dental exam and cleanin g w/o abnorma l finding s
WYATT RUTH 08/03 [facility] HEARING AID REPAIR/MOD IFYING [id number] Diagnos is: ICD-10- CM H90.3 Sensori neural hearing loss, bilater al
ROSSY PATTERSON 08/17 [facility] [place]MIN [id number] Diagnos is: ICD-10- CM Z23 Encount er for immuniz ation<b r/> MARIA DE JESUS HARRISON 08/24 [facility] Procedures Combined list of: 1) Procedures from Department of Veterans Affairs facilities going back up to thelast 18 months, not all [place] non-surgical procedures are included; 2) All procedures from the Department of Defense facilities. Procedure Procedure Type Code Date Perfomer Comments [facility] e Acoustic Reflex Testing 007 ANNI SHERMAN [facility] Tympanometry Tympanometry 56728 007 ANNI SHERMAN [facility] Comprehensive Audiometry Comprehensive Audiometry 27597 007 ANNI SHERMAN [facility] Arthrocentesis Injection Of Knee Joint Arthrocentesis Injection Of Knee Joint 007 ORI CHINO Arthrocentesis Injection Of Knee Joint Arthrocentesis Injection Of Knee Joint 007 ORI CHINO PROCEDURE HYALGAN INJECTION: Risks and Benefits discussed. Patient elects to proceded. RIGHT Knee: Knee prepped with betadine and injected with prefilled 2ml syringe of Synvisc in sterile manner on lateral aspect DoD Arthrocentesis Injection Of Knee Joint Arthrocentesis Injection Of Knee Joint 007 ORI CHINO PROCEDURE HYALGAN INJECTION: Risks and Benefits discussed. Patient elects to proceded. RIGHT Knee: Knee prepped with betadine and injected with prefilled 2ml syringe of Hyalgan in sterile manner on lateral aspect DoD Corticosteroids Inject Intraarticular Right Olecranon Bursa Corticosteroids Inject Intraarticular Right Olecranon Bursa 007 MADELYN ROONEY Consent obtained after risk counseling. Sterile prep. Olecranon bursa injected with 2cc total -- 1.5cc lido 1% without, 0.5cc kenalog 40. Bandage applied. Acute f/u instructions discussed. Pt tolerated well, good response to injection. [facility] Spectacles Services Fitting Bifocal Except For Aphakia Spectacles Services Fitting Bifocal Except For Aphakia [id number] 007 CURT ALATORRE Ophthalmological New Patient Start Comprehensive Care Ophthalmological New Patient Start Comprehensive Care [id number] 007 CURT ALATORRE [facility] Determination Of Refractive State Determination Of Refractive State 94444 007 CURT ALATORRE Ophthalmological New Patient Start Comprehensive Care Ophthalmological New Patient Start Comprehensive Care [address]75 MELQUIADES LIRA Determination Of Refractive State Determination Of Refractive State 12115 M[place]QUIAD[place] LIRA Slit Lamp Examination With Photography Slit Lamp Examination With Photography [id number] MELQUIADES LIRA [facility] Clinical Social Work Counseling Family Conjoint 005 TIFFANIE RAPHAEL [facility] Clinical Social Work Counseling Family Conjoint 005 TIFFANIE RAPHAEL [facility] Clinical Social Work Counseling Family Conjoint 005 TIFFANIE RAPHAEL [facility] ACOUSTIC REFLEX TESTING, THRESHOLD 007 DoD ARTHROCENTESIS, ASPIRATION AND/OR INJECTION, MAJOR JOINT OR BURSA (EG, SHOULDER, HIP, KNEE, SUBACROMIAL BURSA); WITHOUT ULTRASOUND GUIDANCE 007 DoD ARTHROCENTESIS, ASPIRATION AND/OR INJECTION, MAJOR JOINT OR BURSA (EG, SHOULDER, HIP, KNEE, SUBACROMIAL BURSA); WITHOUT ULTRASOUND GUIDANCE 007 DoD ARTHROCENTESIS, ASPIRATION AND/OR INJECTION, MAJOR JOINT OR BURSA (EG, SHOULDER, HIP, KNEE, SUBACROMIAL BURSA); WITHOUT ULTRASOUND GUIDANCE DoD ARTHROCENTESIS, ASPIRATION AND/OR INJECTION, INTERMEDIATE JOINT OR BURSA (EG, TEMPOROMANDIBULAR, ACROMIOCLAVICULAR, WRIST, ELBOW OR ANKLE, OLECRANON BURSA); WITHOUT ULTRASOUND GUIDANCE DoD FITTING OF SPECTACLES, EXCEPT FOR APHAKIA; BIFOCAL 007 DoD OTHER APPENDECTOMY 998 DoD FITTING OF SPECTACLES, EXCEPT FOR APHAKIA; MONOFOCAL 004 DoD PURE TONE AUDIOMETRY (THRESHOLD); AIR ONLY 004 DoD APPLICATION OF A MODALITY TO 1 OR MORE AREAS; HOT OR COLD PACKS 004 DoD KNEE ORTHOSIS (KO), ELASTIC WITH STAYS, PREFABRICATED, INCLUDES FITTING AND ADJUSTMENT 004 DoD ANALYSIS OF CLINICAL DATA STORED IN COMPUTERS (EG, ECGS, BLOOD PRESSURES, HEMATOLOGIC DATA) 004 [facility] EDUCATIONAL SUPPLIES, SUCH BOOKS, TAPES, AND PAMPHLETS, FOR THE PATIENT'S EDUCATION AT COST TO PHYSICIAN OR OTHER QUALIFIED HEALTH GEOTECHNICAL ENGINEERING TECHNICIAN 003 DoD DETERMINATION OF REFRACTIVE STATE 003 DoD OPHTHALMOLOGICAL SERVICES: MEDICAL EXAMINATION AND EVALUATION, WITH INITIATION OR CONTINUATION OF DIAGNOSTIC AND TREATMENT PROGRAM; INTERMEDIATE, ESTABLISHED PATIENT 002 DoD OPHTHALMOLOGICAL SERVICES: MEDICAL EXAMINATION AND EVALUATION, WITH INITIATION OR CONTINUATION OF DIAGNOSTIC AND TREATMENT PROGRAM; INTERMEDIATE, ESTABLISHED PATIENT [facility] EXTERNAL OCULAR PHOTOGRAPHY WITH INTERPRETATION AND REPORT FOR DOCUMENTATION OF MEDICAL PROGRESS (EG, CLOSE-UP PHOTOGRAPHY, SLIT LAMP PHOTOGRAPHY, GONIOPHOTOGRAPHY, STEREO-PHOTOGRAPHY) 006 [facility] FAMILY PSYCHOTHERAPY (CONJOINT PSYCHOTHERAPY) (WITH PATIENT PRESENT), 50 MINUTES 005 [facility] FAMILY PSYCHOTHERAPY (CONJOINT PSYCHOTHERAPY) (WITH PATIENT PRESENT), 50 MINUTES 005 [facility] FAMILY PSYCHOTHERAPY (CONJOINT PSYCHOTHERAPY) (WITH PATIENT PRESENT), 50 MINUTES 005 [facility] PSYCHIATRIC DIAGNOSTIC INTERVIEW EXAMINATION 005 [facility] PSYCHIATRIC DIAGNOSTIC INTERVIEW EXAMINATION 005 [facility] PSYCHIATRIC DIAGNOSTIC INTERVIEW EXAMINATION 005 [facility] PSYCHIATRIC DIAGNOSTIC INTERVIEW EXAMINATION 005 [facility] SELF-CARE/HOME MANAGMENT TRAIN (EG,ACT OF DAILY LIVING (ADL) &COMPENSAT TRAIN,MEAL PREPARATION,SAFETY PROCS,AND INSTRUCT IN USE OF ASST TECHNOLOGY DEV/ADPT EQUIP) DIR ONE-ON-ONE CONT,EA 15 MINUTES 005 [facility] PSYCHIATRIC DIAGNOSTIC INTERVIEW EXAMINATION 005 [facility] PSYCHIATRIC DIAGNOSTIC INTERVIEW EXAMINATION 005 [facility] PSYCHIATRIC DIAGNOSTIC INTERVIEW EXAMINATION 005 [facility] Social History Combined list of available smoking, tobacco, and other social history from Department of Defense and Veterans Affairs facilities. 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 This section is an empty social history section. [facility] Plan of Care List of future care activities from Department of Veterans Affairs facilities. Additional future care activities may be listed in the Assessment and Plan section. Date/Time Care Activity Care Activity Detail Jonnyi bonifacio 11/30/2024 AMBULATORY - SURGERY AMBULATORY - SURGERY [facility]
--- NOTE | 2024-08-25 08:00 | CRLHL7_ITS ---
For Patients: As a result of the Cures Act, medical imaging exams and procedure reports are released immediately into your electronic medical record. You may view this report before your referring provider. If you have questions, please contact your health care provider. Indication: Sinusitis Technique: Performed without IV contrast Comparison: None available Findings: Frontal sinuses: Incompletely developed on a congenital basis. Ethmoid sinuses: Mild mucosal thickening is present. Maxillary sinuses: Mucosal thickening within both maxillary sinuses. At least partial obstruction of the sinus drainage pathways. Sphenoid sinuses: Clear, including both sphenoethmoidal recesses. Nasal Cavity: Leftward curvature of the nasal septum. Fullness of the right inferior turbinate mucosa. No polyp. No TMJ abnormalities identified. The visualized portions of the orbits, intracranial contents and upper soft tissue neck are grossly negative. Impression: 1. Bilateral maxillary sinus disease, right greater than left. 2. Leftward curvature of the nasal septum. Please note that all CT scans at this facility use dose modulation, iterative reconstruction, and/or weight-based dosing when appropriate to reduce radiation dose to as low as reasonably achievable. Dictated by Buck Alvarenga MD @ 08/25/2024 12:13:35 PM (Electronically Signed)
--- OUTSIDE RECORDS SUMMARY | 2024-08-25 08:00 | XMS_ITS | Encounter Summary ---
Author Name [facility] [place] [facility] [place] [facility] [place] Address [address] [place] [address] Care Team Providers Care Radiologic Therapist Name Role Phone COLLEEN SMALL Primary Care Provider Unavailabl e Selected Encounter This section includes the information on record at [place] for the Encounter. Date/Time Encounter Type Encounter Description Reason Provider Source Aug 24, 2024 02:28 PM IMMUNIZATION ADMIN PRIMARY CARE/MEDICINE ICD-10-CM Z23 Encounter for immunization DORETHA HARRISON [facility] Encounter Template Text not used by [place] Assessments - Encounter Diagnoses This section includes the primary and secondary diagnoses documented for the Encounter. Date/Time Primary/Secondary Diagnosis Diagnosis Name Provider Source Aug 24, 2024 02:32 PM PRIMARY Encounter for immunization DORETHA HARRISON [facility] Plan of Treatment: Future Appointments (+ 6 months) and Future Tests (+/- 45 days) The Plan of Treatment section includes future care activities for the patient from all [place] treatmentfacilities. This section includes future appointments and future orders which are active, pending or scheduled. Future Appointments This section includes appointments that were scheduled to occur 6 months from the date of the Encounter, up to a maximum of 20 appointments. The data comes from all [place] treatment facilities. Appointment Date/Time Appointment Type Appointme nt Facility Name Nov 30, 2024 03:00 PM AMBULATORY - SURGERY [facility] Immunizations: All administered on the encounter date This section contains immunizations associated to the Encounter. Immunization Series Date Issued Reaction Comments INFLUENZA, SPLIT VIRUS, TRIVALENT, PF Aug 24, 2 024 Social History: Smoking Status (Most current) and Tobacco Use (All prior to encounter date) This section includes the most current, and the historical, smoking and tobacco- related health factors from the [facility] where the Encounter took place. Current Smoking Status This section includes the most current smoking, or tobacco-related health factor, from the [facility] where the Encounter took place. Date/Time Current Smoking Status Comment Jonny cruz Jan 24, 2024 02:45 PM VA-TOBACCO NEVER USED [facility] Tobacco Use History This section includes a history of the smoking, or tobacco-related health factors, that were collected on or before the date of the Encounter. The data comes from the [facility] where the Encounter took place. Date/Time Smoking Status/Tobacco Use Comment Wes hernandezlachelle March 17, 2023 08:15 AM VA-TOBACCO NEVER USED [facility] Mar 09, 2022 08:15 AM VA-TOBACCO NEVER USED [facility] Mar 10, 2021 08:00 AM VA-TOBACCO NEVER USED [facility] May 24, 2020 08:00 AM LIFETIME NON-SMOKER [facility] Mar 10, 2019 07:57 AM VA-TOBACCO NEVER USED [facility] Encounter Notes: All associated encounter notes This section contains the clinical notes associated to the Encounter. 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 The patient/caregiver denied any prior severe reaction to this vaccine or its components or a severe allergic reaction, such as anaphylaxis, to any vaccine or any injectable therapy. The patient/caregiver gave verbal consent to receive the vaccine. /piper/ NIKHIL HARRISON SOFTWARE SYSTEMS ARCHITECT [facility] CARDIAC TECH FELLER SEAM OPERATOR Signed: 08/24/2024 14:32 NIKHIL HARRISON [facility]
--- OUTSIDE RECORDS SUMMARY | 2024-08-25 08:00 | XMS_ITS | Encounter Summary ---
Author Name [facility] [place] [facility] [place] [facility] [place] Address [address] [place] [address] Care Team Providers Care Real Property Evaluator Name Role Phone COLLEEN SMALL Primary Care Provider Unavailabl e Selected Encounter This section includes the information on record at [place] for the Encounter. Date/Time Encounter Type Encounter Description Reason Provider Source Aug 17, 2024 08:15 AM HEARING AID REPAIR/MODIFYIN G AUDIOLOGY ICD-10-CM H90.3 Sensorineural hearing loss, bilateral ALBA PATTERSON E Encounter Template Text not used by [place] Assessments - Encounter Diagnoses This section includes the primary and secondary diagnoses documented for the Encounter. Date/Time Primary/Secondary Diagnosis Diagnosis Name Provider Source Aug 17, 2024 09:33 AM PRIMARY Sensorineural hearing loss, bilateral ALBA PATTERSON [facility] Aug 17, 2024 09:33 AM SECONDARY Encounter for fitting and adjustment of hearing aid ALBA PATTERSON [facility] Aug 17, 2024 09:33 AM SECONDARY Tinnitus, bilateral ALBA PATTERSON [facility] Plan of Treatment: Future Appointments (+ 6 months) and Future Tests (+/- 45 days) The Plan of Treatment section includes future care activities for the patient from all [place] treatmentfacilities. This section includes future appointments and future orders which are active, pending or scheduled. Future Appointments This section includes appointments that were scheduled to occur 6 months from the date of the Encounter, up to a maximum of 20 appointments. The data comes from all [place] treatment facilities. Appointment Date/Time Appointment Type Appointme nt Facility Name Nov 30, 2024 03:00 PM AMBULATORY - SURGERY [facility] Social History: Smoking Status (Most current) and Tobacco Use (All prior to encounter date) This section includes the most current, and the historical, smoking and tobacco- related health factors from the [facility] where the Encounter took place. Current Smoking Status This section includes the most current smoking, or tobacco-related health factor, from the [facility] where the Encounter took place. Date/Time Current Smoking Status Comment Facil ity Jan 24, 2024 02:45 PM VA-TOBACCO NEVER USED [facility] Tobacco Use History This section includes a history of the smoking, or tobacco-related health factors, that were collected on or before the date of the Encounter. The data comes from the [facility] where the Encounter took place. Date/Time Smoking Status/Tobacco Use Comment F acility March 17, 2023 08:15 AM VA-TOBACCO NEVER USED [facility] Mar 09, 2022 08:15 AM VA-TOBACCO NEVER USED [facility] Mar 10, 2021 08:00 AM VA-TOBACCO NEVER USED [facility] May 24, 2020 08:00 AM LIFETIME NON-SMOKER [facility] Mar 10, 2019 07:57 AM VA-TOBACCO NEVER USED [facility] Encounter Notes: All associated encounter notes This section contains the clinical notes associated to the Encounter. Date/Time Encounter Note(s) Provider Source Aug 17, 2024 09:27 AM AUDIOLOGY NOTE: LOCAL TITLE: AUDIOLOGY CLINIC NOTE STANDARD TITLE: AUDIOLOGY NOTE DATE OF NOTE: AUG 17, 2024@09:27 ENTRY DATE: AUG 17, 2024@09:27:51 AUTHOR: RADHA PATTERSON EXP COSIGNER: BELKIS REED URGENCY: STATUS: COMPLETED AUDIOLOGY CLINIC NOTE Has ADDENDA DIAGNOSIS Encounter for fitting and Adjustment of Hearing Aids Sensorineural Hearing Loss, Bilateral TINNITUS-BILIATERAL Reason for Visit: Hearing Aid Service Location of Visit(Room Number):2S-109 was seen for Hearing Aid Service/Repair: 30 minute Appointment Otoscopy: Free of Excessive Cerumen, Normal anatomy bilaterally DIAGNOSIS History: Patient seen for a hearing aid service/hearing aid check Make:PHONAK Model: [id number]-R JEFFY Serial Number:[id number] Dome/Mold: SMALL VENTED The following Hearing aid problem(s) were presented Right Hearing Aid:CLEAN AND CHECK, RECEIVERS PLUGGED UP Left Hearing Aid:SAME ABOVE Action: Hearing Aids were cleaned and checked. A listening check revealed good sound quality: REPLACED BOTH 5.0 2M RECEIVERS, DOMES AND SPORT LOCKS AIDS WORKING PROPERLY POST CLEANING ' Dresher was counseled using a curriculum on the cleaning,care and use of hearing aids. Plan: Vet will contact call center as needed for follow up Patient is in agreement with this plan. Vp Corporate Development: /piper/ RADHA PATTERSON AUDIO TECH Signed: 08/17/2024 09:33 /piper/ Ruchi Hayden Clinical Chemistry Research Assistant Cosigned: 08/23/2024 09:55 08/23/2024 ADDENDUM STATUS: COMPLETED I was not in clinic on this day (August 17) and am unable to sign this note as the supervising Chemistry Research Assistant. Dr. Mendez alerted. /piper/ Ruhci Hayden Clinical Chemistry Research Assistant Signed: 08/23/2024 09:55 Receipt Acknowledged By: * AWAITING SIGNATURE * NAZ MENDEZ MICHAEL C [facility]
--- OUTSIDE RECORDS SUMMARY | 2024-08-25 08:01 | XMS_ITS | Clinical Summary ---
Author Organization [employer] [facility] Address [place], [place] [address] Care Team Providers Care Laundry Supervisor Name Role Phone [place], [place] Primary Care Provider [phone] Social History Tobacco Use Types Packs/Day Years Used Date Smoking Tobacco: Never Assessed Sex and Gender Information Value Date Recorded Sex Assigned at Not on file Gender Identity Not on file Sexual Orientation Not on file Plan of Treatment Health Maintenance Due Date Last Done Comments Tdap 1973 Depression screening for age 12+ 1974 HIV for age 15-65 1977 BMI (ht and wt on same day) for age 18+ 1980 Hepatitis C screening for ag e 18-79 1980 Tetanus booster 1982 Colonoscopy through age 75 2007 Lipids for age 45-75 2007 Zoster (shingles) series for age 50+ (1 of 2) 2012 COVID-19 vaccine series ( season) 2024 12/31/2020 Influenza for age 50-64 07/16/2024 Pneumococcal series for age 6-64 Aged Out No longer eligible based on patient's age to complete this topic Care Teams Laundry Supervisor Relationship Specialty Start Date End Date [place], [place] [address] [place] [id number] PCP - General 12/31/21
== END 2024-08-25 07:58 | disposition home or self-care (01) ==
LOC: CT 07:57
PROVIDERS: Visit Provider Otolaryngology
DX: J32.9 Chronic sinusitis, unspecified (principal); J32.0 Chronic maxillary sinusitis; J34.2 Deviated nasal septum
CPT/HCPCS: 70486

== ENCOUNTER 2024-11-24 07:53 | Day surgery (SDC) | payer OTHER, SELFPAY ==
--- OUTSIDE RECORDS SUMMARY | 2024-11-14 13:23 | XMS_ITS | Continuity of Care Document ---
Author Name [facility] Organization [facility] Care Team Providers Care Maori Liaison Adviser Name Role Phone [facility] Unavailable Unavailable Problems Combined list of problems from Department of Defense and [facility] Affairs facilities. It does not include entries that were removed or entered in error. 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 [facility] Angle of jaw closed fracture Active Condition [facility] Ankle pain (SNOMED CT 397041495) Active Condition [facility] Appendectomy Active Condition [facility] Louie's esophagus Active Condition [facility] Chronic rhinitis Active Condition [facility] Contact dermatitis of eyelid Active Condition [facility] Dermatitis (SNOMED CT 65390371) Active Condition [facility] DS EXPOSURE TO OIL-WELL FIRE SMOKE Active Condition [facility] DS/OIF EXPOSURE TO CONNIE-8 FUEL AND EXHAUST Active Condition [facility] DS/OIF EXPOSURE TO SAND/DUST STORMS Active Condition [facility] Dyslipidemia Active Condition [facility] Elbow joint pain Active Condition [facility] Erectile dysfunction (SNOMED CT 301865171) Active Condition [facility] Gastroesophageal reflux disease (SNOMED CT 044668640) Active Condition [facility] Iron deficiency Active Condition [facility] Low back pain (SNOMED CT 809348301) Active Condition [facility] Obesity Active Condition [facility] Obstructive sleep apnea of adult (SNOMED CT 4303557988377) Active Condition Nov 18, 2023 Entered By: TALITA GERBER Comment: apap 6-15 [facility] OIF EXPOSURE TO BURN PIT SMOKE Active Condition [facility] OIF EXPOSURE TO TRIETHYLCHOLINE Active Condition [place] [facility] Open Treatment of Acute or Chronic Elbow Dislocation Active Condition [facility] Osteoarthritis of right hip joint (SNOMED CT 458359483703711) Active Condition Dec 25 2 Entered By: DEMETRIUS RAO Comment: R kneeFeb 2011 Entered By: DEMETRIUS RAO Comment: has done pt and injections- steroids and lubricating [facility] Osteoarthritis of right knee joint Active Condition [place] [facility] Other Psoriasis Active [facility] Pain of right shoulder joint Active Condition [place] [facility] Restless legs Active Condition [facility] [facility] Vasectomy Status Active Condition [facility] shoulder separation right Active Condition [facility] lumbago Active Condition DoD sensorineural hearing loss [...] Active Condition order 1st BF Rx: OD -0.50-2.52g582 OS -0.50-2.57c531 Add +1.00 OU DoD chondromalacia Active Condition GR1 CMP. DoD joint pain, localized in the shoulder Active Condition SEE NOTE. DoD osteoarthritis localized primary knee Active Condition Rt knee. [facility] visit for: screening exam hypertension Inactive Condition Pt w/elevated BP today. Pt has been referred for 5 day BP check. Mbr will be TDY for 2 wks and then start 5 day check. [facility] visit for: services physical Active Condition NAD//Please see DD form 0599. 10 year total coronary heart disease risk 4%. Continued to stress TLC. Will call with results. DoD pterygium Active Condition DoD refractive error - myopia Active Condition [facility] astigmatism Active Condition DoD pinguecula Active Condition B DoD parent-child problem Active Condition DoD dermatophytosis Inactive Condition DoD Diagnosis: ICD-10-CM Z01.818 Encounter for other preprocedural examination Active Diagnosis [facility] Diagnosis: ICD-10-CM Z13.6 Encounter for screening for cardiovascular disorders Active Diagnosis [facility] Diagnosis: ICD-10-CM Z23 Encounter for immunization Active Diagnosis [facility] Diagnosis: ICD-10-CM H90.3 Sensorineural hearing loss, bilateral Active Diagnosis [facility] Diagnosis: ICD-10-CM Z01.20 Encounter for dental exam and cleaning w/o abnormal findings Active Diagnosis [facility] Diagnosis: ICD-10-CM H25.13 Age-related nuclear cataract, bilateral Active Diagnosis [facility] Diagnosis: ICD-10-CM E78.5 Hyperlipidemia, unspecified Active Diagnosis [facility] Diagnosis: ICD-10-CM M72.2 Plantar fascial fibromatosis Active Diagnosis [facility] Diagnosis: ICD-10-CM R09.81 Nasal congestion Active Diagnosis [facility] Diagnosis: ICD-10-CM J01.91 Acute recurrent sinusitis, unspecified Active Diagnosis [facility] Diagnosis: ICD-10-CM G47.33 Obstructive sleep apnea (adult) (pediatric) Active Diagnosis [facility] Diagnosis: ICD-10-CM J31.0 Chronic rhinitis Active Diagnosis [facility] Diagnosis: ICD-10-CM J01.90 Acute sinusitis, unspecified Active Diagnosis [facility] Diagnosis: ICD-10-CM L82.1 Other seborrheic keratosis Active Diagnosis [facility] Diagnosis: ICD-10-CM R21 Rash and other nonspecific skin eruption Active Diagnosis [facility] Diagnosis: ICD-10-CM Z46.1 Encounter for fitting and adjustment of hearing aid Active Diagnosis [facility] Diagnosis: ICD-10-CM K22.70 Louie's esophagus without dysplasia Active Diagnosis [facility] Medications Combined list of outpatient medications from [...] 24 HOURS FROM ALL SOURCES* ACTIVE 03/16/2025 [id number] 4 Demetria SMALL 2023 100 [facility] ACETAMINOPH EN 500MG TAB TAKE TWO TABLETS BY MOUTH AT BEDTIME ORAL ACTIVE DEANDRA DAMICO 2017 [facility] AMOXICILLIN TRIHYDRATE 500MG CAP TAKE FOUR CAPSULES BY MOUTH ONCE 1 HOUR PRIOR TO DENTAL PROCEDUR E ORAL 03/17/2024 [id number] 4 GEOVANNYDemetria SJ CARROLL 2022 4 [facility] AMOXICILLIN TRIHYDRATE 875MG/CLAVU LANATE K 125MG TAB TAKE 1 TABLET BY MOUTH TWICE A DAY FOR ACUTE SINUSITI S ORAL 02/23/2024 [id number] Demetria SMALL 2023 10 [facility] AMOXICILLIN -CLAVULANAT E POTASS (amoxicilli n/potassium clavulanate ), 875-125 MG, TABLET, ORAL, USANTIBIOTI CS,, 20 ea. BOTTLE Active [id number] 4 2023 20 Pharmac y Data Transac tion Service Facilit y Benzonatate (Intronis) 100 CAPSULE in 1 BOTTLE Active [id number] 11/24/19 2 4 2023 30 Pharmac y [facility] Service [facility]ilit y CETIRIZINE HCL 10MG TAB TAKE ONE TABLET BY MOUTH EVERY DAY FOR ALLERGIE S ORAL ACTIVE 01/24/2025 [id number] 4 GEOVANNYDemetria SJ CARROLL 2023 90 [facility] CETIRIZINE HCL 10MG TAB TAKE ONE TABLET BY MOUTH EVERY DAY FOR ALLERGIE S ORAL DISCONT INUED 03/17/2024 [id number] Demetria SMALL 2022 90 [facility] DICLOFENAC NA 1% GEL,TOP APPLY 2 GRAMS TOPICALL Y FOUR TIMES A DAY NEEDED TO AFFECTED AREA FOR PAIN TOPICA L ACTIVE 03/16/2025 [id number] 4 GEOVANNYDemetria 2023 100 [facility] DICLOFENAC NA 1% GEL,TOP APPLY 2 GRAMS TOPICALL Y FOUR TIMES A DAY NEEDED TO AFFECTED AREA FOR PAIN. *USE DOSE CARD IN BOX TO MEASURE DOSE. MAX 32 GRAMS PER DAY. FOR SHOULDER PAIN TO AFFECTED AREA FOR PAIN. *USE DOSE CARD IN BOX TO MEASURE DOSE. MAX 32 GRAMS PER DAY. FOR SHOULDER PAIN TOPICA L DISCONT INUED 03/17/2024 [id number] 3 Demetria SMALL 2022 100 [facility] FLUTICASONE PROPIONATE 50MCG/SPRAY SOLN,NASAL, 16GM SPRAY 2 SPRAYS IN EACH NOSTRIL EVERY DAY FOR ALLERGIE S NASAL SUSPEND ED 01/24/2025 [id number] 5 Demetria SMALL 2023 3 [facility] FLUTICASONE PROPIONATE 50MCG/SPRAY SOLN,NASAL, 16GM SPRAY 2 SPRAYS IN EACH NOSTRIL EVERY DAY FOR ALLERGIE S NASAL DISCONT INUED 03/17/2024 [id number] 4 Demetria SMALL 2022 3 [facility] MECLIZINE HCL 25MG TAB,CHEWABL E CHEW ONE TABLET BY MOUTH THREE TIMES A DAY NEEDED FOR MOTION SICKNESS ORAL ACTIVE 03/16/2025 [id number] Demetria SMALL 2023 30 [facility] MULTIVITAMI NS CAP/TAB TAKE 1 TABLET BY MOUTH EVERY DAY ORAL ACTIVE 03/16/2025 [id number] Demetria SMALL 2023 100 [facility] MULTIVITAMI NS CAP/TAB TAKE 1 TABLET BY MOUTH EVERY DAY ORAL DISCONT INUED 03/17/2024 [id number] Demetria SMALL 2022 100 [facility] OMEPRAZOLE 20MG CAP,EC TAKE ONE CAPSULE BY MOUTH EVERY DAY ON AN EMPTY STOMACH, AT LEAST 30 MINUTES PRIOR TO A MEAL TO DECREASE STOMACH ACID ORAL ACTIVE 03/16/2025 [id number] 4 Demetria SMALL 2023 90 [place] OMEPRAZOLE 20MG CAP,EC TAKE ONE CAPSULE BY MOUTH EVERY DAY ON AN EMPTY STOMACH, AT LEAST 30 MINUTES PRIOR TO A MEAL TO DECREASE STOMACH ACID ORAL DISCONT INUED 03/17/2024 [id number] 4 Demetria SMALL 2022 90 [facility] PRAVASTATIN NA 40MG TAB TAKE ONE TABLET BY MOUTH AT BEDTIME FOR CHOLESTE ROL ORAL ACTIVE 03/16/2025 [id number] Demetria SMALL 2023 60 [facility] PSEUDOEPHED RINE HCL 60MG TAB TAKE ONE TABLET BY MOUTH EVERY 6 HOURS NEEDED FOR CONGESTI ON ORAL 11/18/2023 [id number] LALY VERA E 2022 120 [facility] SILDENAFIL CITRATE 100MG TAB TAKE ONE-HALF TABLET BY MOUTH NEEDED FOR ERECTION S - TAKE 1 HOUR BEFORE ANTICIPA PATRIA SEXUAL ACTIVITY ORAL ACTIVE 03/16/2025 [id number] 4 Demetria SMALL 2023 9 [facility] SILDENAFIL CITRATE 100MG TAB TAKE ONE-HALF TABLET BY MOUTH NEEDED FOR ERECTION S - TAKE 1 HOUR BEFORE ANTICIPA PATRIA SEXUAL ACTIVITY ORAL DISCONT INUED 03/17/2024 [id number] Demetria SMALL 2022 9 [facility] SODIUM CHLORIDE 0.65% SOLN,NASAL SPRAY SPRAY 1-2 SPRAYS IN EACH NOSTRIL EVERY DAY NEEDED FOR NASAL DRYNESS NASAL 11/18/2023 [id number] LALY VERA 2022 45 [facility] VANICREAM APPLY THIN LAYER TOPICALL Y EVERY DAY TO ALL SKIN, IDEALLY WITHIN 3 MINUTES AFTER BATH OR SHOWER. TOPICA L ACTIVE 03/16/2025 [id number] 4 Demetria SMALLTH 2023 454 [facility] Allergies, Adverse Reactions, Alerts Combined list of allergies from Department of Defense and Veterans Affairs facilities. It does not include entries that were removed or entered in error. Substance Category Reaction Severity Reaction type Status Date Reported Comments Source Morphine Drug allergy (disorder) Urticaria active 5 [facility] MORPHINE SULFATE INJ Propensity to adverse reactions to drug (finding) Urticaria active 5 [facility] Immunizations Combined list of available immunizations from the Department of Defense and Veterans Affairs facilities. Immunization Series Date Given Administered By Site Reaction Lot Number CVX Code Drug Hospital Chief Financial Officer Status Comments Source INFLUENZA, SPLIT VIRUS, TRIVALENT, PF 2023 DORETHA HARRISON LEFT DELTO ID [id number] 140 complet ed [facility] INFLUENZA, INJECTABLE, QUADRIVALENT, PRESERVATIVE FREE 2022 SALAS EDWARDS LEFT DELTO ID [id number] 150 complet ed [facility] ZOSTER RECOMBINANT 2 2022 SALAS EDWARDS LEFT DELTO ID [id number] 187 complet ed [id number] 07/04/24 [facility] ZOSTER RECOMBINANT 1 [address] M LEFT DELTO ID [id number] 187 complet ed [id number] [facility] INFLUENZA, INJECTABLE, QUADRIVALENT, PRESERVATIVE FREE 2021 150 complet ed [facility] COVID-19 (PFIZER), MRNA, LNP-S, PF, 30 MCG/0.3 ML DOSE 3 2020 208 complet ed PFR; [id number]; 2 [facility] INFLUENZA, INJECTABLE, QUADRIVALENT, PRESERVATIVE FREE 2020 150 complet ed [facility] TDAP 2020 115 complet ed [facility] COVID-19 (MODERNA), MRNA, LNP-S, PF, 100 MCG/0.5 ML DOSE 2 2020 207 complet ed [place] COVID-19 (MODERNA), MRNA, LNP-S, PF, 100 MCG/0.5ML DOSE OR 50 MCG/0.25ML DOSE 2020 207 complet ed [facility] INFLUENZA, INJECTABLE, QUADRIVALENT, PRESERVATIVE FREE 2019 150 complet ed [facility] INFLUENZA, INJECTABLE, QUADRIVALENT 2018 158 complet ed [facility] Administe red by: [facility] Clinician (NPI=Not Provided) . Partner 3 Lot#: [id number] Mfr: SEQIRUS [facility] INFLUENZA, SEASONAL, INJECTABLE, PRESERVATIVE FREE 2017 140 complet ed [facility] INFLUENZA, INJECTABLE, MDCK, PRESERVATIVE FREE, QUADRIVALENT 2016 171 complet ed Partner: [place] . Administe red by: [facility] Clinician (NPI=Not Provided) . Partner 3 Lot#: [id number] Mfr: SEQIRUS [facility] INFLUENZA, SEASONAL, INJECTABLE, PRESERVATIVE FREE 2015 140 complet ed [facility] TDAP 2015 115 complet ed [employer], Lot [id number], Exp 8 [facility] TDAP 2008 115 complet ed [facility] tetanus toxoid, reduced diphtheria toxoid, and acellular pertu is vaccine, adsorbed 1 2007 Unknown, Provider [id number] San[employer]i Pasteur ([facility]) complet ed tetanus toxoid, reduced diphtheri a toxoid, and acellular pertussis vaccine, adsorbed [facility] influenza virus vaccine, live, attenuated, for intranasal use 1 2006 Unknown, Provider [id number] [employer] (formerly [employer]), [employer]. (MED) complet ed influenza virus vaccine, live, attenuate d, for intranasa l use DoD influenza virus vaccine, split virus (incl. purified surface antigen)-reti red CODE 1 2005 [id number] 15 Sanofi Pasteur ([facility]) complet ed influenza virus vaccine, split virus (incl. purified surface antigen)- retired CODE DoD influenza virus vaccine, split virus (incl. purified surface antigen)-reti red CODE 1 2004 [id number] 15 Unknown (UNK) comple t ed influenza virus vaccine, split virus (incl. purified surface antigen)- retired CODE DoD anthrax vaccine 4 2003 [id number] Emergent Bio[employer]CE[employer] Christine ([facility]) complet ed anthrax vaccine DoD influenza virus vaccine, whole virus 0 2002 [id number] 16 [employer] (PWJ) complet ed influenza virus vaccine, whole virus DoD anthrax vaccine 3 2002 24 Transcribed (TRS) complet ed anthrax vaccine DoD anthrax vaccine 2 2002 [id number] [facility] Christine ([facility]) complet ed anthrax vaccine DoD vaccinia (smallpox) vaccine, diluted 0 2002 [id number] Marianne-Ulices ([facility]) complet ed vaccinia (smallpox ) vaccine, diluted DoD anthrax vaccine 1 2002 [id number] [facility] BioDefense [facility] ([facility]) complet ed anthrax vaccine DoD influenza virus vaccine, whole virus 0 2001 [id number] 16 Sanofi Pasteur ([facility]) complet ed influenza virus vaccine, whole virus DoD meningococcal polysaccharid e vaccine (MPSV4) 0 2001 [id number] 32 Sanofi Pasteur ([facility]) complet ed meningoco ccal polysacch aride vaccine (MPSV4) DoD typhoid vaccine, parenteral, other than acetone-kille d, dried 0 2001 [id number] Sanofi Pasteur ([facility]) complet ed typhoid vaccine, parentera l, other than acetone-k illed, dried DoD influenza virus vaccine, whole virus 0 2000 [id number] 16 Sanofi Pasteur ([facility]) complet ed influenza virus vaccine, whole virus DoD tetanus and diphtheria toxoids, adsorbed, preservative free, for adult use (2 Lf of tetanus toxoid and 2 Lf of diphtheria toxoid) 0 1996 [id number] 09 Reuben (LED) comple t ed tetanus and diphtheri a toxoids, adsorbed, preservat cristiana free, for adult use (2 Lf of tetanus toxoid and 2 Lf of diphtheri a toxoid) DoD influenza virus vaccine, whole virus 0 [id number] 16 Marianne-Lindat (Inactive) ([place]) complet ed influenza virus vaccine, whole virus DoD hepatitis A vaccine, adult dosage 2 1996 [id number] [facility] (SKB) complet ed hepatitis A vaccine, adult [...] Reference Range Date Interpretation Specimen Comments Source CBC LEUKOCYTES [#/VOLUME] IN BLOOD BY AUTOMATED COUNT 7.3 4.0 - 11.0 11/02 Specimen Type: BLOOD No comment entered. Ordering Provider: RAZ GARCIA Report Released Date/Time: Sep 29, 2024 12:36 PM Reporting Lab: [facility] [phone] Performing Lab: [facility] [phone] [facility] CBC ERYTHROCYTE S [#/VOLUME] IN BLOOD BY AUTOMATED COUNT 5.53 4.60 - 6.20 11/02 Specimen Type: BLOOD No comment entered. Ordering Provider: RAZ GARCIA Report Released Date/Time: Sep 29, 2024 12:36 PM Reporting Lab: [facility] [phone] Performing Lab: [facility] [phone] [place] CBC HEMOGLOBIN [MASS/VOLUM E] IN BLOOD 16.0 g/dL 13.5 - 17.9 11/02 Specimen Type: BLOOD No comment entered. Ordering Provider: RAZ GARCIA Report Released Date/Time: Sep 29, 2024 12:36 PM Reporting Lab: [facility] [phone] Performing Lab: [address] [place] [facility] CBC HEMATOCRIT [VOLUME FRACTION] OF BLOOD BY AUTOMATED COUNT 49.6 41.0 - 54.0 11/02 Specimen Type: BLOOD No comment entered. Ordering Provider: RAZ GARCIA Report Released Date/Time: Sep 29, 2024 12:36 PM Reporting Lab: [facility] [phone] Performing Lab: [facility] [phone] [place] [facility] CBC MCV [ENTITIC VOLUME] BY AUTOMATED COUNT 89.7 fL 80.0 - 100.0 11/02 Specimen Type: BLOOD No comment entered. Ordering Provider: RAZ GARCIA Report Released Date/Time: Sep 29, 2024 12:36 PM Reporting Lab: [facility] [phone] Performing Lab: [facility] [address] [place] [facility] CBC MCH [ENTITIC MASS] BY AUTOMATED COUNT 28.9 pg 27.0 - 33.0 11/02 Specimen Type: BLOOD No comment entered. Ordering Provider: RAZ GARCIA Report Released Date/Time: Sep 29, 2024 12:36 PM Reporting Lab: [facility] [address] Performing Lab: [facility] [address] [place] [facility] CBC MCHC [MASS/VOLUM E] BY AUTOMATED COUNT 32.3 g/dL 32.0 - 37.5 11/02 Specimen Type: BLOOD No comment entered. Ordering Provider: RAZ GARCIA Report Released Date/Time: Sep 29, 2024 12:36 PM Reporting Lab: [facility] [phone] Performing Lab: [place] [phone] [place] [facility] CBC PLATELETS [#/VOLUME] IN BLOOD BY AUTOMATED COUNT 217 150 - 400 11/02 Specimen Type: BLOOD No comment entered. Ordering Provider: RAZ GARCIA Report Released Date/Time: Sep 29, 2024 12:36 PM Reporting Lab: [facility] [phone] Performing Lab: [facility] [address] [place] [facility] CBC PLATELET MEAN VOLUME [ENTITIC VOLUME] IN BLOOD BY AUTOMATED COUNT 10.2 fL 9.1 - 13.0 11/02 Specimen Type: BLOOD No comment entered. Ordering Provider: RAZ GARCIA Report Released Date/Time: Sep 29, 2024 12:36 PM Reporting Lab: [facility] [phone] Performing Lab: [facility] [phone] [place] CBC ERYTHROCYTE DISTRIBUTIO N WIDTH [RATIO] BY AUTOMATED COUNT 13.1 11.5 - 14.5 11/02 Specimen Type: BLOOD No comment entered. Ordering Provider: RAZ GARCIA Report Released Date/Time: Sep 29, 2024 12:36 PM Reporting Lab: [facility] [address] Performing Lab: [facility] [address] [place] [facility] AST/SGOT ASPARTATE AMINOTRANSF ERASE [ENZYMATIC ACTIVITY/VO LUME] IN SERUM OR PLASMA 28 U/L 11 - 34 05/30 Specimen Type: PLASMA No comment entered. Ordering Provider: DEANDRA SMALL Report Released Date/Time: March 15, 2024 08:34 AM Reporting Lab: [facility] [phone] Performing Lab: [facility] [address] [place] [facility] ALT/SGPT ALANINE AMINOTRANSF ERASE [ENZYMATIC ACTIVITY/VO LUME] IN SERUM OR PLASMA 21 U/L <44 - 44 05/30 Specimen Type: PLASMA No comment entered. Ordering Provider: DEANDRA SMALL Report Released Date/Time: March 15, 2024 08:34 AM Reporting Lab: [facility] [address] Performing Lab: [facility] [address] [place] [facility] LIPID PANEL,NON -FASTING CHOLESTEROL [MASS/VOLUM E] IN SERUM OR PLASMA 174 mg/dL <199 - 199 05/30 Specimen Type: PLASMA No comment entered. Ordering Provider: DEANDRA SMALL Report Released Date/Time: March 15, 2024 08:34 AM Reporting Lab: [facility] [address] Performing Lab: [facility] [address] [place] [facility] LIPID PANEL,NON -FASTING CHOLESTEROL IN HDL [MASS/VOLUM E] IN SERUM OR PLASMA 48 mg/dL 40 05/30 Specimen Type: PLASMA No comment entered. Ordering Provider: DEANDRA SMALL Report Released Date/Time: March 15, 2024 08:34 AM Reporting Lab: [facility] [phone] Performing Lab: [facility] [phone] [place] LIPID PANEL,NON -FASTING CHOLESTEROL IN LDL [MASS/VOLUM E] IN SERUM OR PLASMA BY CALCULATION 98 mg/dL <99 - 99 05/30 Specimen Type: PLASMA No comment entered. Ordering Provider: DEANDRA SMALL Report Released Date/Time: March 15, 2024 08:34 AM Reporting Lab: [facility] [phone] Performing Lab: [facility] [address] [place] [facility] LIPID PANEL,NON -FASTING CHOLESTEROL IN VLDL [MASS/VOLUM E] IN SERUM OR PLASMA BY CALCULATION 28 mg/dL <29 - 29 05/30 Specimen Type: PLASMA No comment entered. Ordering Provider: DEANDRA SMALL Report Released Date/Time: March 15, 2024 08:34 AM Reporting Lab: [facility] [phone] Performing Lab: [facility] [phone] [place] [facility] LIPID PANEL,NON -FASTING CHOLESTEROL NON HDL [MASS/VOLUM E] IN SERUM OR PLASMA 126 mg/dL <129 - 129 05/30 Specimen Type: PLASMA No comment entered. Ordering Provider: DEANDRA SMALL Report Released Date/Time: March 15, 2024 08:34 AM Reporting Lab: [facility] [phone] Performing Lab: [facility] [address] [place] [facility] LIPID PANEL,NON -FASTING TRIGLYCERID E [MASS/VOLUM E] IN SERUM OR PLASMA 142 mg/dL <149 - 149 05/30 Specimen Type: PLASMA No comment entered. Ordering Provider: DEANDRA SMALL Report Released Date/Time: March 15, 2024 08:34 AM Reporting Lab: [facility] [phone] Performing Lab: [facility] [phone] [facility] AST/SGOT ASPARTATE AMINOTRANSF ERASE [ENZYMATIC ACTIVITY/VO [...] March 17, 2023 09:36 AM Reporting Lab: [facility] [phone] Performing Lab: [facility] [phone] [facility] ALT/SGPT ALANINE AMINOTRANSF ERASE [ENZYMATIC ACTIVITY/VO [...] March 17, 2023 09:36 AM Reporting Lab: [facility] [phone] Performing Lab: [facility] [address] [place] [facility] CBC LEUKOCYTES [#/VOLUME] IN BLOOD BY AUTOMATED COUNT 6.00 10*3/u L 4.0 - 11.0 03/15 Specimen Type: BLOOD No comment entered. Ordering Provider: DEANDRA SMALL Report Released Date/Time: March 17, 2023 09:36 AM Reporting Lab: [facility] [address] Performing Lab: [facility] [address] [facility] CBC ERYTHROCYTE S [#/VOLUME] IN BLOOD BY AUTOMATED COUNT 5.49 10*6/u L 4.6 - 6.2 03/15 Specimen Type: BLOOD No comment entered. Ordering Provider: DEANDRA SMALL Report Released Date/Time: March 17, 2023 09:36 AM Reporting Lab: [facility] [address] Performing Lab: [facility] [address] [place] [facility] CBC HEMOGLOBIN [MASS/VOLUM E] IN BLOOD 15.7 g/dL 13.5 - 17.9 03/15 Specimen Type: BLOOD No comment entered. Ordering Provider: DEANDRA SMALL Report Released Date/Time: March 17, 2023 09:36 AM Reporting Lab: [facility] [address] Performing Lab: [facility] [address] [facility] CBC HEMATOCRIT [VOLUME FRACTION] OF BLOOD BY AUTOMATED COUNT 48.9 41 - 54 03/15 Specimen Type: BLOOD No comment entered. Ordering Provider: DEANDRA SMALL Report Released Date/Time: March 17, 2023 09:36 AM Reporting Lab: [facility] [address] Performing Lab: [facility] [address] [facility] CBC MCV [ENTITIC VOLUME] BY AUTOMATED COUNT 89.1 fL 80 - 100 03/15 Specimen Type: BLOOD No comment entered. Ordering Provider: DEANDRA SMALL Report Released Date/Time: March 17, 2023 09:36 AM Reporting Lab: [facility] [address] Performing Lab: [facility] [address] [place] CBC MCH [ENTITIC MASS] BY AUTOMATED COUNT 28.6 pg 27 - 33 03/15 Specimen Type: BLOOD No comment entered. Ordering Provider: DEANDRA SMALL Report Released Date/Time: March 17, 2023 09:36 AM Reporting Lab: [facility] [address] Performing Lab: [facility] [address] [facility] CBC MCHC [MASS/VOLUM E] BY AUTOMATED COUNT 32.1 g/dL 32.0 - 37.5 03/15 Specimen Type: BLOOD No comment entered. Ordering Provider: DEANDRA SMALL Report Released Date/Time: March 17, 2023 09:36 AM Reporting Lab: [facility] [address] Performing Lab: [facility] [address] [facility] CBC PLATELETS [#/VOLUME] IN BLOOD BY AUTOMATED COUNT 222 10*3/u L 150 - 400 03/15 Specimen Type: BLOOD No comment entered. Ordering Provider: DEANDRA SMALL Report Released Date/Time: March 17, 2023 09:36 AM Reporting Lab: [facility] [address] Performing Lab: [facility] [address] [facility] CBC PLATELET MEAN VOLUME [ENTITIC VOLUME] IN BLOOD BY AUTOMATED COUNT 10.2 fL 7.4 - 10.4 03/15 Specimen Type: BLOOD No comment entered. Ordering Provider: DEANDAR SMALL Report Released Date/Time: March 17, 2023 09:36 AM Reporting Lab: [facility] [address] Performing Lab: [facility] [address] [facility] CBC ERYTHROCYTE DISTRIBUTIO N WIDTH [RATIO] BY AUTOMATED COUNT 13.7 11.5 - 14.5 03/15 Specimen Type: BLOOD No comment entered. Ordering Provider: DEANDRA SMALL Report Released Date/Time: March 17, 2023 09:36 AM Reporting Lab: [facility] [address] Performing Lab: [facility] [address] [facility] HEMOGLOBI N A1C HEMOGLOBIN A1C/HEMOGLO BIN.TOTAL [...] March 17, 2023 09:36 AM Reporting Lab: [facility] [address] Performing Lab: [place] [phone] [place] [facility] BASIC METABOLIC PANEL+MG CREATININE [MASS/VOLUM E] [...] March 17, 2023 09:36 AM Reporting Lab: [facility] [address] Performing Lab: [facility] [address] [place] [facility] BASIC METABOLIC PANEL+MG UREA NITROGEN [MASS/VOLUM [...] March 17, 2023 09:36 AM Reporting Lab: [facility] [address] Performing Lab: [facility] [address] [place] [facility] BASIC METABOLIC PANEL+MG GLUCOSE [MASS/VOLUM E] [...] March 17, 2023 09:36 AM Reporting Lab: [facility] [address] Performing Lab: [facility] [address] [place] [facility] BASIC METABOLIC PANEL+MG SODIUM [MOLES/VOLU ME] [...] March 17, 2023 09:36 AM Reporting Lab: [facility] [address] Performing Lab: [facility] [address] [place] [facility] BASIC METABOLIC PANEL+MG POTASSIUM [MOLES/VOLU ME] [...] March 17, 2023 09:36 AM Reporting Lab: [facility] [address] Performing Lab: [facility] [address] [place] [facility] BASIC METABOLIC PANEL+MG CHLORIDE [MOLES/VOLU ME] [...] March 17, 2023 09:36 AM Reporting Lab: [facility] [address] Performing Lab: [facility] [address] [place] [facility] BASIC METABOLIC PANEL+MG CARBON DIOXIDE, TOTAL [...] March 17, 2023 09:36 AM Reporting Lab: [facility] [address] Performing Lab: [place] [phone] [place] [facility] BASIC METABOLIC PANEL+MG CALCIUM [MASS/VOLUM E] [...] March 17, 2023 09:36 AM Reporting Lab: [facility] [address] Performing Lab: [facility] [address] [place] [facility] BASIC METABOLIC PANEL+MG MAGNESIUM [MASS/VOLUM E] [...] March 17, 2023 09:36 AM Reporting Lab: [facility] [address] Performing Lab: [facility] [address] [place] [facility] BASIC METABOLIC PANEL+MG ANION GAP IN [...] March 17, 2023 09:36 AM Reporting Lab: [facility] [address] Performing Lab: [facility] [address] [place] [facility] BASIC METABOLIC PANEL+MG GLOMERULAR FILTRATION RATE/1.73 SQ [...] March 17, 2023 09:36 AM Reporting Lab: [facility] [address] Performing Lab: [facility] [address] [place] [facility] LIPID PANEL,NON -FASTING CHOLESTEROL [MASS/VOLUM E] [...] March 17, 2023 09:36 AM Reporting Lab: [facility] [address] Performing Lab: [facility] [address] [place] [facility] LIPID PANEL,NON -FASTING CHOLESTEROL IN HDL [...] March 17, 2023 09:36 AM Reporting Lab: [facility] [address] Performing Lab: [facility] [address] [place] [facility] LIPID PANEL,NON -FASTING CHOLESTEROL IN LDL [...] March 17, 2023 09:36 AM Reporting Lab: [facility] [address] Performing Lab: [facility] [address] [place] [facility] LIPID PANEL,NON -FASTING CHOLESTEROL IN VLDL [...] March 17, 2023 09:36 AM Reporting Lab: [facility] [address] Performing Lab: [facility] [address] [place] [facility] LIPID PANEL,NON -FASTING CHOLESTEROL NON HDL [...] March 17, 2023 09:36 AM Reporting Lab: [facility] [address] Performing Lab: [facility] [address] [place] [facility] LIPID PANEL,NON -FASTING TRIGLYCERID E [MASS/VOLUM [...] March 17, 2023 09:36 AM Reporting Lab: [facility] [address] Performing Lab: [facility] [address] [facility] Vital Signs Combined list of inpatient and outpatient Vital Signs from Department of Defense and Veterans Affairs, ranging from 12 months to all on record, depending upon the facility. Vital Sign Value Date Comments Source SYSTOLIC BLOOD PRESSURE 130 11/02/2024 13:33:09 [facility] DIASTOLIC BLOOD PRESSURE 86 11/02/2024 13:33:09 [facility] PULSE OXIMETRY 97 11/02/2024 13:33:[address] [facility] WEIGHT 229.7 11/02/2024 13:33:09 [facility] BMI 33kg/m2 11/02/2024 13:33:09 [facility] HEIGHT 69.75 11/02/2024 13:33:09 [facility] [place] [facility] TEMPERATURE 98 11/02/2024 13:33:09 [facility] PULSE 70 11/02/2024 13:33:09 [facility] [place] [facility] RESPIRATION 16 11/02/2024 13:33:09 [facility] SYSTOLIC BLOOD PRESSURE 153 08/03/2024 14:10:18 [facility] DIASTOLIC BLOOD PRESSURE 92 08/03/2024 14:10:18 [facility] TEMPERATURE 98.5 08/03/2024 14:10:18 [facility] P[facility] 64 08/03/2024 14:10:18 [facility] SYSTOLIC BLOOD PRESSURE 135 03/15/2024 07:58:13 [facility] DIASTOLIC BLOOD PRESSURE 86 03/15/2024 07:58:13 [facility] PULSE OXIMETRY 96 03/15/2024 07:58:13 [facility] WEIGHT 226.8 03/15/2024 07:58:13 [facility] [place] [facility] BMI 34kg/m2 03/15/2024 07:58:13 [facility] [place] [facility] PAIN 0 03/15/2024 07:58:13 [facility] HEIGHT 68.1 03/15/2024 07:58:13 [facility] [place] [facility] TEMPERATURE 97.5 03/15/2024 07:58:13 [place] [facility] P[facility]SE 62 03/15/2024 07:58:13 [facility] RESP[facility]ATION 18 03/15/2024 07:58:13 [facility] SYSTOLIC BLOOD PRESSURE 150 01/24/2024 14:46:41 [facility] DIASTOLIC BLOOD PRESSURE 91 01/24/2024 14:46:41 [facility] PULSE OXIMETRY 97 01/24/2024 14:46:41 [facility] 98.4 01/24/2024 14:46:41 [place] [facility] P[facility]SE 73 01/24/2024 14:46:41 [place] [facility] 18 01/24/2024 14:46:41 [facility] Encounters Combined list of: 1) Encounters from Department of Veterans Affairs facilities [email or web address]. 2) Encounters from the Department of Defense facilities going back up to 280 months. Location Location Details Encounter Type Encounter Number Reason For Visit Attending Provider ADM Date DC Date Status Disposition Source Replaced by [facility] OUTPATIENT [id number] F/U NEEL Valencia 06/17 Released w/o Limitations [facility]) [facility]placed by [facility] OUTPATIENT [id number] puffy eyes HUEY POND 10/02 Released w/o Limitations [facility]) Replaced by [facility] ) OUTPATIENT [id number] eye exam MELQUIADES LIRA 12/24 Released w/o Limitations [facility]) [place] OUTPATIENT [id number] Annual PHA LIN NI 07/15 Released w/o Limitations [place] [place] _[facility] 2) ANSHU Saab([place]ete_F HC_[facility] 2) OUTPATIENT [id number] 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 DONNA Roth 09/08 Released with Work/Duty Limitations [place] [facility] [facility]) [place] OUTPATIENT [id number] R knee JAVIER MCGRAW 09/15 Released with Work/Duty Limitations [place] [place] [facility] OUTPATIENT [id number] f/u mri done r knee JAVIER MCGRAW 10/21 Released w/o Limitations [facility] [place] [place] [facility] ) OUTPATIENT [id number] GEN EYE EXAM CURT ALATORRE 12/01 Released w/o Limitations [facility] [facility] [facility] OUTPATIENT [id number] elbow/r ight/te nder/sh oulder/ neck/so re/pain MADELYN Maravilla 12/16 Released w/o Limitations [facility] [place] [facility] OUTPATIENT [id number] staffor d pt rt knee ck medicat ion and QI Maciel 02/10 Released w/o Limitations [facility] [place] [place]) OUTPATIENT [id number] left wrist pain YVAN COOK Evens 02/15 Released with Work/Duty Limitations [facility] [place] [facility] 2) [place] [facility] 2) OUTPATIENT [id number] [employer]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 AKUA TORRES 04/20 Released w/o Limitations [facility] [place] _[facility]_[place] [facility] 2) [place] [facility]) OUTPATIENT [id number] injecti ons right knee ORI CHINO 05/25 Released w/o Limitations [facility] [place] [place] OUTPATIENT [id number] right knee injecti on # 3 ORI CHINO A 06/08 Released w/o Limitations [facility] [place] [place] OUTPATIENT [id number] hyalgan r knee #3 ORI CHINO [place] 06/22 Released w/o Limitations [facility] [place] [place] 2[place] OUTPATIENT [id number] annual PHA JAVIER RUELAS 07/21 Released w/o Limitations [facility] [place] [facility] 2[place] [facility] [place] OUTPATIENT [id number] HEARING LOSS ANNI SHERMAN 08/05 Released w/o Limitations [place] [facility] [place]) [facility] [place] 2) OUTPATIENT [id number] retirem ent physicAKUA Arzate 10/11 Released w/o Limitations [place] [facility] [place] [facility] 2) [facility] Outpatient Encounter [id number] 05/20 [place] [facility] [place] [facility] Outpatient Encounter [id number] 05/20 [place] [facility] [place] [facility] Outpatient Encounter [id number] 05/22 [facility] MOD SED SAME PHYS/QHP 5/>YRS [id number] Diagnos is: ICD-10- CM K22.70 Louie 's esophag us without dysplas ia
RICKEY GIFFORD 05/24 [place] [facility] [place] [facility] Outpatient Encounter [id number] 05/24 [facility] Outpatient Encounter [id number] ALYSEBIANCA FATIMA 05/26 [facility] Outpatient Encounter [id number] MONA ZUNIGAI 06/08 [facility] HEARING AID CHECK BOTH EARS [id number] Diagnos is: ICD-10- CM Z46.1 Encount er for fitting and adjustm ent of hearing aid<br/ > BELKIS REED 06/09 [facility] OFFICE O/P EST MOD 30-39 MIN [id number] Diagnos is: ICD-10- CM H25.13 Age-rel ated nuclear catarac t, bilater al
GRAMATES,P EGGY H 06/29 [facility] OFFICE O/P EST SF 10-19 MIN [id number] Diagnos is: ICD-10- CM R21 Rash and other nonspec ific skin eruptio n
JUAN LUIS MAK 06/29 [facility] UNLISTED SPEC DERM SVC/PX [id number] Diagnos is: ICD-10- CM R21 Rash and other nonspec ific skin eruptio n
PARVIZ DO 06/29 [facility] Outpatient Encounter [id number] Diagnos is: ICD-10- CM L82.1 Other seborrh eic keratos is
MIRIAM CARTER 06/30 [facility] Outpatient Encounter [id number] 07/01 [facility] IMMUNIZATI ON ADMIN EACH ADD [id number] Diagnos is: ICD-10- CM Z23 Encount er for immuniz ation<b r/> DAVID EDWARDS 08/30 [facility] Outpatient Encounter [id number] KIMBERLY CARD 10/18 [facility] OFFICE O/P EST LOW 20-29 MIN [id number] Diagnos is: ICD-10- CM J01.90 Acute sinusit is, unspeci fied
CHUYDUANE BAR Dayne 10/19 [facility] Outpatient Encounter [id number] 10/19 [facility] Outpatient Encounter [id number] Diagnos is: ICD-10- CM J31.0 Chronic rhiniti s
Vi TREVINO 10/22 [facility] PT EDUCATION NOC INDIVID [id number] Diagnos is: ICD-10- CM G47.33 Obstruc tive sleep apnea (adult) (pediat arlette)
YANIV GERBER ICA S 11/18 [facility] Outpatient Encounter [id number] 12/03 [facility] Outpatient Encounter [id number] PARVIZ PICKETT 01/23 [facility] OFFICE O/P EST MOD 30 MIN [id number] Diagnos is: ICD-10- CM J01.91 Acute recurre nt sinusit is, unspeci fied
ME PIERRE SMALL 01/23 [facility] Outpatient Encounter [id number] 01/23 [facility] OFFICE O/P EST MOD 30 MIN [id number] Diagnos is: ICD-10- CM R09.81 Nasal congest ion<br/ > RAZ ANDUJAR ID 03/02 [facility] OFFICE O/P EST MOD 30 MIN [id number] Diagnos is: ICD-10- CM M72.2 Plantar fascial fibroma tosis<b r/> [facility] Outpatient Encounter [id number] 06/01 [facility] Outpatient Encounter [id number] Diagnos is: ICD-10- CM E78.5 Hyperli pidemia , unspeci fied
ME [facility]NY [facility] 06/09 [facility] Outpatient Encounter [id number] 06/23 [facility] OFFICE O/P EST MOD 30 MIN [id number] Diagnos is: ICD-10- CM H25.13 Age-rel ated nuclear catarac t, bilater al
GEORGIADIS LEIGH A 07/12 [facility] DENTAL PANORAMIC IMAGE [id number] Diagnos is: ICD-10- CM Z01.20 Encount er for dental exam and cleanin g w/o abnorma l finding s
WYATT RUTH 08/03 [facility] HEARING AID REPAIR/MOD IFYING [id number] Diagnos is: ICD-10- CM H90.3 Sensori neural hearing loss, bilater al
DEBBIE GERMAIN IDGET M 08/17 [facility] Outpatient Encounter [id number] 08/17 [facility] IMMUNIZATI ON ADMIN [id number] Diagnos is: ICD-10- CM Z23 Encount er for immuniz ation<b r/> MARIA DE JESUS HARRISON 08/24 [facility] Outpatient Encounter [id number] 09/29 [facility] Outpatient Encounter [id number] GALEN LebronTIMBO SALINAS 10/18 [facility] Outpatient Encounter [id number] 10/23 [facility] ELECTROCAR DIOGRAM REPORT [id number] Diagnos is: ICD-10- CM Z13.6 Encount er for screeni ng for cardiov ascular disorde rs
JANENE RIZZO 11/02 [facility] OFF[facility] O/P EST MOD 30 MIN [id number] Diagnos is: ICD-10- CM Z01.818 Encount er for other preproc edural examina tion
ARI REDD 11/02 [facility] Procedures Combined list of: 1) Procedures from Department of [facility] Affairs facilities going back up to thelast 18 months, not all [place] non-surgical procedures are included; 2) All procedures from the Department of Defense facilities. Procedure Procedure Type Code Date Perfomer Comments [facility] e ACOUSTIC REFLEX TESTING, THRESHOLD 007 [facility] ARTHROCENTESIS, ASPIRATION AND/OR INJECTION, MAJOR JOINT OR BURSA (EG, SHOULDER, HIP, KNEE, SUBACROMIAL BURSA); WITHOUT ULTRASOUND GUIDANCE 007 [facility] ARTHROCENTESIS, ASPIRATION AND/OR INJECTION, MAJOR JOINT OR BURSA (EG, SHOULDER, HIP, KNEE, SUBACROMIAL BURSA); WITHOUT ULTRASOUND GUIDANCE 007 [facility] ARTHROCENTESIS, ASPIRATION AND/OR INJECTION, MAJOR JOINT OR BURSA (EG, SHOULDER, HIP, KNEE, SUBACROMIAL BURSA); WITHOUT ULTRASOUND GUIDANCE 007 [facility] ARTHROCENTESIS, ASPIRATION AND/OR INJECTION, INTERMEDIATE JOINT OR BURSA (EG, TEMPOROMANDIBULAR, ACROMIOCLAVICULAR, WRIST, ELBOW OR ANKLE, OLECRANON BURSA); WITHOUT ULTRASOUND GUIDANCE 007 [facility] FITTING OF SPECTACLES, EXCEPT FOR APHAKIA; [...] (EG, ECGS, BLOOD PRESSURES, HEMATOLOGIC DATA) 004 [facility] EDUCATIONAL SUPPLIES, SUCH BOOKS, TAPES, AND PAMPHLETS, FOR THE PATIENT'S EDUCATION AT COST TO PHYSICIAN OR OTHER QUALIFIED HEALTH [employer] FILTER OPERATOR 003 [facility] DETERMINATION OF REFRACTIVE STATE 003 [facility] OPHTHALMOLOGICAL SERVICES: MEDICAL EXAMINATION AND EVALUATION, WITH INITIATION OR CONTINUATION OF DIAGNOSTIC AND TREATMENT PROGRAM; INTERMEDIATE, ESTABLISHED PATIENT 002 [facility] OPHTHALMOLOGICAL SERVICES: MEDICAL EXAMINATION AND EVALUATION, WITH INITIATION OR CONTINUATION OF DIAGNOSTIC AND TREATMENT PROGRAM; INTERMEDIATE, ESTABLISHED PATIENT 000 [facility] EXTERNAL OCULAR PHOTOGRAPHY WITH INTERPRETATION AND REPORT FOR DOCUMENTATION OF MEDICAL PROGRESS (EG, CLOSE-UP PHOTOGRAPHY, SLIT LAMP PHOTOGRAPHY, GONIOPHOTOGRAPHY, STEREO-PHOTOGRAPHY) 006 [facility] FAMILY PSYCHOTHERAPY (CONJOINT PSYCHOTHERAPY) (WITH PATIENT PRESENT), 50 MINUTES 005 [facility] FAMILY PSYCHOTHERAPY (CONJOINT PSYCHOTHERAPY) (WITH PATIENT PRESENT), 50 MINUTES 005 [facility] FAMILY PSYCHOTHERAPY (CONJOINT PSYCHOTHERAPY) (WITH PATIENT PRESENT), 50 MINUTES 005 [facility] PSYCHIATRIC DIAGNOSTIC INTERVIEW EXAMINATION 005 [facility]D PSYCHIATRIC DIAGNOSTIC INTERVIEW EXAMINATION 005 [facility] PSYCHIATRIC DIAGNOSTIC INTERVIEW EXAMINATION [facility] PSYCHIATRIC DIAGNOSTIC INTERVIEW EXAMINATION DoD SELF-CARE/HOME MANAGMENT TRAIN (EG,ACT OF DAILY LIVING (ADL) &COMPENSAT TRAIN,MEAL PREPARATION,SAFETY PROCS,AND INSTRUCT IN USE OF ASST TECHNOLOGY DEV/ADPT EQUIP) DIR ONE-ON-ONE CONT,EA 15 MINUTES 005 [facility] PSYCHIATRIC DIAGNOSTIC INTERVIEW EXAMINATION 005 [facility] PSYCHIATRIC DIAGNOSTIC INTERVIEW EXAMINATION 005 [facility] PSYCHIATRIC DIAGNOSTIC INTERVIEW EXAMINATION 005 [facility] Acoustic Reflex Testing 007 ANNI SHERMAN [facility] Tympanometry Tympanometry [id number] 007 ANNI SHERMAN [facility] Comprehensive Audiometry Comprehensive Audiometry [id number] 007 ANNI SHERMAN [facility] Arthrocentesis Injection Of Knee Joint Arthrocentesis Injection Of Knee Joint 007 ORI CHINO [facility] Arthrocentesis Injection Of Knee Joint Arthrocentesis Injection Of Knee Joint 007 ORI CHINO PROCEDURE HYALGAN INJECTION: Risks and Benefits discussed. Patient elects to proceded. RIGHT Knee: Knee prepped with betadine and injected with prefilled 2ml syringe of Synvisc in sterile manner on lateral aspect [facility] Arthrocentesis Injection Of Knee Joint Arthrocentesis Injection Of Knee Joint 007 ORI CHINO PROCEDURE HYALGAN INJECTION: Risks and Benefits discussed. Patient elects to proceded. RIGHT Knee: Knee prepped with betadine and injected with prefilled 2ml syringe of Hyalgan in sterile manner on lateral aspect DoD Corticosteroids Inject Intraarticular Right Olecranon Bursa Corticosteroids Inject Intraarticular Right Olecranon Bursa MADELYN DAVIS Consent obtained after risk counseling. Sterile prep. Olecranon bursa injected with 2cc total -- 1.5cc lido 1% without, 0.5cc kenalog 40. Bandage applied. Acute f/u instructions discussed. Pt tolerated well, good response to injection. [facility] [employer] Fitting Bifocal Except For Aphakia Spectacles Services Fitting Bifocal Except For Aphakia [id number] CURT ALATORRE Ophthalmological New Patient Start Comprehensive Care Ophthalmological New Patient Start Comprehensive Care [id number] 007 CURT ALATORRE Determination Of Refractive State Determination Of Refractive State [id number] 007 CURT ALATORRE [facility] Ophthalmological New Patient Start Comprehensive Care Ophthalmological New Patient Start Comprehensive Care [id number] MELQUIADES LIRA [facility] Determination Of Refractive State Determination Of Refractive State [id number] 006 MELQUIADES LIRA [facility] Slit Lamp Examination With Photography Slit Lamp Examination With Photography [id number] 006 MELQUIADES LIRA [facility] Clinical Social Work Counseling Family Conjoint 005 TIFFANIE RAPHAEL [facility] Clinical Social Work Counseling Family Conjoint 005 TIFFANIE RAPHAEL [facility] Clinical Social Work Counseling Family Conjoint 005 TIFFANIE RAPHAEL [facility] Social History Combined list of available smoking, tobacco, and other social history from [facility] Defense and [facility] facilities. Social History Type Response Date Comment Sour e Tobacco smoking status [facility] VA-TOBACCO NEVER USED 01/24/2024 [facility] History of tobacco use VA-TOBACCO NEVER USED 03/17/2023 [facility] History of tobacco use VA-TOBACCO NEVER USED 03/09/2022 [facility] History of tobacco use VA-TOBACCO NEVER USED 03/10/2021 [facility] History of tobacco use LIFETIME NON-SMOKER 05/24/2020 [facility] History of tobacco use VA-TOBACCO NEVER USED 03/10/2019 [facility] History of tobacco use 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 [facility]
--- OUTSIDE RECORDS SUMMARY | 2024-11-14 13:23 | XMS_ITS | Encounter Summary ---
Author Name [facility] [place] [facility] [place] Address [address] [place] [address] Care Team Providers Care Gang Ripsaw Operator Name Role Phone COLLEEN SMALL Primary Care Provider Unavailabl e Selected Encounter This section includes the information on record at [place] for the Encounter. Date/Time Encounter Type Encounter Description Reason Provider Source Nov 18, 2023 11:00 AM PT EDUCATION NOC INDIVID SLEEP MEDICINE ICD-10-CM G47.33 Obstructive sleep apnea (adult) (pediatric) TALITA GERBER [facility] Encounter Template Text not used by [place] Assessments - Encounter Diagnoses This section includes the primary and secondary diagnoses documented for the Encounter. Date/Time Primary/Secondary Diagnosis Diagnosis Name Provider Source Nov 18, 2023 11:31 AM PRIMARY Obstructive sleep apnea (adult) (pediatric) TALITA GERBER [facility] Plan of Treatment: Future Appointments (+ 6 months) and Future Tests (+/- 45 days) The Plan of Treatment section includes future care activities for the patient from all [place] treatmentfacilities. This section includes future appointments and future orders which are active, pending or scheduled. Future Appointments This section includes appointments that were scheduled to occur 6 months from the date of the Encounter, up to a maximum of 20 appointments. The data comes from all [place] treatment facilities. Appointment Date/Time Appointment Type Appointme nt Facility Name Jan 24, 2024 02:45 PM [facility] Mar 02, 2024 10:40 AM [facility] SUR[facility] March 15, 2024 07:15 AM [facility]ORY [facility] NONE [facility] March 15, 2024 08:15 AM AMBULATORY - MEDICINE [facility] March 15, 2024 09:00 AM AMBULATORY - NONE [facility] Social History: Smoking Status (Most current) and Tobacco Use (All prior to encounter date) This section includes the most current, and the historical, smoking and tobacco- related health factors from the [place] facility where the Encounter took place. Current Smoking Status This section includes the most current smoking, or tobacco-related health factor, from the [facility] where the Encounter took place. Date/Time Current Smoking Status Comment Facil ity March 17, 2023 08:15 AM [place]-TOBACCO NEVER USED [facility] Tobacco Use History This section includes a history of the smoking, or tobacco-related health factors, that were collected on or before the date of the Encounter. The data comes from the [place] facility where the Encounter took place. Date/Time Smoking Status/Tobacco Use Comment F acility Mar 09, 2022 08:15 AM VA-TOBACCO NEVER USED [facility] Mar 10, 2021 08:00 AM VA-TOBACCO NEVER USED [facility] May 24, 2020 08:00 AM LIFETIME NON-SMOKER [facility] Mar 10, 2019 07:57 AM VA-TOBACCO NEVER USED [facility] Encounter Notes: All associated encounter notes This section contains the clinical notes associated to the Encounter. Date/Time Encounter Note(s) Provider Source Nov 18, 2023 11:24 AM SLEEP MEDICINE NOT E: LOCAL TITLE: SLEEP MEDICINE NOTE STANDARD TITLE: SLEEP MEDICINE NOTE DATE OF NOTE: NOV 18, 2023@11:24 ENTRY DATE: NOV 18, 2023@11:24:37 AUTHOR: TALITA GERBER EXP COSIGNER: URGENCY: STATUS: COMPLETED in clinic today for machine intake: SD card DL MOdem ordered Tested and HH was working however was warm but not hot, will order new HH. Compliance Summary Initial Compliance Status Compliant % Days with Usage >= 4 Hours % Days Used Average Usage (Days Used) Hours of Usage 100.0% (30 of 30 days) 100.0% (30 of 30 days) 7 hrs. 58 mins. 2 secs. Device Last Modified Max Pressure DreamStation Auto CPAP 10/17/2023 15 cmH2O Mode Min Pressure AutoCPAP - A-Flex 6 cmH2O AHI Clear Airway Apnea Index 3.5 Obst. Airway Apnea Index Hypopnea Index RERA Index Vibratory Snore Index Flow Limitation Index 0.2 %of Night In Periodic Breathing 0.8 Average CPAP 1 Average Unintended Leak 2.3 Median Unintended Leak 1.6 Ave. Large Leak/Day 11.4 Ave % Large Leak 0.3 Ave % Mask Fit 7.9 cmH2O 90% CPAP 10.5 cmH2O Printed By: sergey 7 l/min 11/18/2023 6 l/min Care Hydropulper Version: 1.49.5 00:00:02 0 100 DL reviewed with . SS in 2013 with Moderate rohit AHI 26.8, today well controlled AHI with APAP 6-15 AHI 3.5. 100% compliant. Discussed letting the washable filters dry all the way and using a new one vs putting same one in as it may be absorbing more dust. All questions answered. /piper/ TALITA GERBER registered respiratory therapist Signed: 11/18/2023 11:31 TALITA GERBER [facility]
--- OUTSIDE RECORDS SUMMARY | 2024-11-14 13:24 | XMS_ITS | Encounter Summary ---
Author Name [facility] [place] [facility] [place] Address [address] [place] [address] Care Team Providers Care Criminal Justice Program Director Name Role Phone COLLEEN SMALL Primary Care Provider Unavailabl e Selected Encounter This section includes the information on record at [place] for the Encounter. Date/Time Encounter Type Encounter Description Reason Pro vider Source Dec 03, 2023 09:07 AM Outpatient Encounter PRIMARY CARE/MEDICINE I[facility] Encounter Template Text not used by [place] Plan of Treatment: Future Appointments (+ 6 months) and Future Tests (+/- 45 days) The Plan of Treatment section includes future care activities for the patient from all [place] treatmentfacilities. This section includes future appointments and future orders which are active, pending or scheduled. Future Appointments This section includes appointments that were scheduled to occur 6 months from the date of the Encounter, up to a maximum of 20 appointments. The data comes from all [place] treatment facilities. Appointment Date/Time Appointment Type Appointme nt Facility Name Jan 24, 2024 02:45 PM AMBULATORY - [place]ICINE [place] [facility] Mar 02, 2024 10:40 AM AMBULATORY [place] SURGERY [place] [facility] March 15, 2024 07:15 AM [place]UL[place]ORY - NONE [place] [facility] March 15, 2024 08:15 AM AMBULATORY - MEDICINE [place] [facility] March 15, 2024 09:00 AM AMBULATORY - NONE [place] [facility] May 30, 2024 06:30 AM AMBUL[facility]ORY - NONE [place] [facility] Social History: Smoking Status (Most current) and Tobacco Use (All prior to encounter date) This section includes the most current, and the historical, smoking and tobacco- related health factors from the [facility] where the Encounter took place. Current Smoking Status This section includes the most current smoking, or tobacco-related health factor, from the [facility] where the Encounter took place. Date/Time Current Smoking Status Comment Facil ity March 17, 2023 08:15 AM [place]-TOBAC[place] NEVER USED [facility] Tobacco Use History This section includes a history of the smoking, or tobacco-related health factors, that were collected on or before the date of the Encounter. The data comes from the [facility] where the Encounter took place. Date/Time Smoking Status/Tobacco Use Comment F acility Mar 09, 2022 08:15 AM [place]-TOBAC[place] NEVER USED [facility] Mar 10, 2021 08:00 AM VA-TOBACCO NEVER USED [facility] May 24, 2020 08:00 AM LIFETIME NON-SMOKER [facility] Mar 10, 2019 07:57 AM [place]-TOBAC[place] NEVER USED [facility] Encounter Notes: All associated encounter notes This section contains the clinical notes associated to the Encounter. Date/Time Encounter Note(s) Provider Source Dec 03, 2023 09:08 AM REPORT OF CONTACT: LOCAL TITLE: APPOINTMENT SCHEDULING NOTE STANDARD TITLE: REPORT OF CONTACT DATE OF NOTE: DEC 03, 2023@09:08 ENTRY DATE: DEC 03, 2023@09:08:48 AUTHOR: NEHEMIAH MANJARREZ EXP COSIGNER: URGENCY: STATUS: COMPLETED Attempted to schedule Cancellation Clinic cancellation Contact attempt made to 1st attempt Telephone 2nd attempt Letter - Sent letter by regular [place] mail to address on file: [address]HA [address], [place] [address] Left message on voice mail to call back to this number [phone] If [place] calls back, schedule appt for: cruzito pact ted 4D rtc 12M w. 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
--- OUTSIDE RECORDS SUMMARY | 2024-11-14 13:24 | XMS_ITS | Encounter Summary ---
Author Name [facility] [place] Organization [facility] [place] Address [address] [place] [address] Care Team Providers Care Composition Siding Worker Name Role Phone COLLEEN SMALL Primary Care Provider Unavailabl e Selected Encounter This section includes the information on record at [place] for the Encounter. Date/Time Encounter Type Encounter Description Reason Provider Source March 15, 2024 08:15 AM OFFICE O/P EST MOD 30 MIN PRIMARY CARE/MEDICINE ICD-10-CM M72.2 Plantar fascial fibromatosis COLLEEN SMALL [facility] Encounter Template Text not used by [place] Assessments - Encounter Diagnoses This section includes the primary and secondary diagnoses documented for the Encounter. Date/Time Primary/Secondary Diagnosis Diagnosis Name Provider Source March 15, 2024 08:45 AM PRIMARY Plantar fascial fibromatosis COLLEEN SMALL [facility] March 15, 2024 08:45 AM SECONDARY Allergic rhinitis, unspecified COLLEEN SMALL [facility] March 15, 2024 08:45 AM SECONDARY Louie's esophagus without dysplasia COLLEEN SMALL [facility] March 15, 2024 08:45 AM SECONDARY Chronic rhinitis COLLEEN SMALL [facility] March 15, 2024 08:45 AM SECONDARY Contact with and exposure to other hazardous substances COLLEEN SMALL [facility] March 15, 2024 08:45 AM SECONDARY Gastro-esophageal reflux disease without esophagitis COLLEEN SMALL [facility] March 15, 2024 08:45 AM SECONDARY Hyperlipidemia, unspecified COLLEEN SMALL [facility] March 15, 2024 08:45 AM SECONDARY Other male erectile dysfunction COLLEEN SMALL [facility] Plan of Treatment: Future Appointments (+ 6 months) and Future Tests (+/- 45 days) The Plan of Treatment section includes future care activities for the patient [facility] [place] [facility] This section includes future appointments and future orders which are active, pending or scheduled. Future Appointments This section includes appointments that were scheduled to occur 6 months from the date of the Encounter, up to a maximum of 20 appointments. The data comes from all [place] treatment facilities. Appointment Date/Time Appointment Type Appointme nt Facility Name May 30, 2024 06:30 AM AMBULATORY - NONE [facility] Jun 09, 2024 11:30 AM AMBULATORY - MEDICINE [facility] Jul 12, 2024 02:40 PM AMBULATORY - SURGERY [facility] Aug 03, 2024 02:00 PM AMBULATORY - SURGERY [facility] Aug 17, 2024 08:15 AM AMBULATORY - SURGERY [facility] Aug 17, 2024 12:00 PM AMBULATORY - NONE [facility] Lab Results: +/- 30 days of the encounter This section includes the Chemistry and Hematology Lab Results on record with [place] for the patient. Radiology Reports and Pathology Reports are provided separately, in subsequent sections. Lab Results This section contains the Chemistry/Hematology Results that were resulted 30 days before or 30 daysafter the date of the Encounter. Date/Time Source Result Type Result - Unit Interpretation Reference Range Comment March 15, 2024 06:41 AM [facility] AST/SGOT Specimen Type: PLASMA Comment: Elevated triglyceride result from a non-fasting specimen should be interpreted with caution. A fasting panel is recommended for accurate triglycerides when trigs are >200 from a non-fasting specimen. Ordering Provider: COLLEEN SMALL Report Released Date/Time: March 17, 2023 09:36 AM Reporting Lab: [facility] [id number] Performing Lab: [facility] [id number] AST/SGOT 35 U/L H <34 March 15, 2024 06:41 AM [facility] ALT/SGPT Specimen Type: PLASMA Comment: Elevated triglyceride result from a non-fasting specimen should be interpreted with caution. A fasting panel is recommended for accurate triglycerides when trigs are >200 from a non-fasting specimen. Ordering Provider: COLLEEN SMALL Report Released Date/Time: March 17, 2023 09:36 AM Reporting Lab: [facility] [phone] Performing Lab: [facility] [id number] ALT/SGPT 50 U/L <55 March 15, 2024 06:41 AM [facility] CBC Specimen Type: BLOOD No comment entered. Ordering Provider: COLLEEN SMALL Report Released Date/Time: March 17, 2023 09:36 AM Reporting Lab: [facility] [phone] Performing Lab: [facility] [phone] WBC 6.00 10*3/uL 4.0-11.0 RBC 5.49 10*6/uL 4.6-6.2 HGB 15.7 g/dL 13.5-17.9 HCT 48.9 41-54 MCV 89.1 fL 80-100 MCH 28.6 pg 27-33 MCHC 32.1 g/dL 32.0-37.5 PLT 222 10*3/uL 150-400 MPV 10.2 fL 7.4-10.4 RDW 13.7 11.5-14.5 March 15, 2024 06:41 AM [facility] HEMOGLOBIN A1C Specimen Type: BLOOD Comment: Values obtained from A1C measurements can vary. For typical A1C assays, a reported value of 7.0 could actually be between 6.7 and 7.3 if measured by a reference method. A reported value of 9.0 could actually be between 8.7 and 9.3. Ref: http://www.ngsp .org/CAPdata.as p Ordering Provider: COLLEEN SMALL Report Released Date/Time: March 17, 2023 09:36 AM Reporting Lab: [facility] [id number] Performing Lab: [facility] [phone] HEMOGLOBIN A1C 5.6 4.0-6.0 March 15, 2024 06:41 AM [facility] BASIC METABOLIC PANEL+MG Specimen Type: PLASMA Comment: Elevated triglyceride result from a non-fasting specimen should be interpreted with caution. A fasting panel is recommended for accurate triglycerides when trigs are >200 from a non-fasting specimen. Ordering Provider: COLLEEN SMALL Report Released Date/Time: March 17, 2023 09:36 AM Reporting Lab: [facility] [phone] Performing Lab: [facility] [phone] CREATININE 1.1 mg/dL 0.7-1.2 UREA NITROGEN 20 mg/dL 8-26 GLUCOSE 94 mg/dL 70-100 SODIUM 142 mmol/L 136-145 POTASSIUM 4.4 mmol/L 3.5-5.1 CHLORIDE 110 mmol/L H 98-107 CO2 23 mmol/L 22-29 CALCIUM 9.5 mg/dL 8.4-10.2 MAGNESIUM 2.1 mg/dL 1.6-2.6 ANION GAP 9 mmol/L 5-15 .CREAT EGFR(CKD-EPI) 76 >60 March 15, 2024 06:41 AM [facility] LIPID PANEL,NON-FASTING Specimen Type: PLASMA Comment: Elevated triglyceride result from a non-fasting specimen should be interpreted with caution. A fasting panel is recommended for accurate triglycerides when trigs are >200 from a non-fasting specimen. Ordering Provider: COLLEEN SMALL Report Released Date/Time: March 17, 2023 09:36 AM Reporting Lab: [facility] [phone] Performing Lab: [facility] [phone] CHOLESTEROL 238 mg/dL H <199 .HDL 46 mg/dL >40 LDL CALCULATION 136 mg/dL H <99 VLDL CALCULATION 56 mg/dL H <29 NON HDL CHOLESTEROL 192 mg/dL H <129 TRIG(NON FASTING) 279 mg/dL H <149 Vital Signs: All taken on the encounter date This section contains inpatient and outpatient Vital Signs collected on the date of the Encounter. Date/Time Temperature Pulse Blood Pressure Respiratory Rate SP02 Pain Height Weight Body Mass Index Source March 15, 2024 07:58 AM 97.5 62 135/86 18 96 0 68.1 226.8 34 [facility] Social History: Smoking Status (Most current) and Tobacco Use (All prior to encounter date) This section includes the most current, and the historical, smoking and tobacco- related health factors from the [place] facility where the Encounter took place. Current Smoking Status This section includes the most current smoking, or tobacco-related health factor, from the [place] facility where the Encounter took place. Date/Time Current Smoking Status Comment Jonny cruz Jan 24, 2024 02:45 PM VA-TOBACCO NEVER USED [facility] Tobacco Use History This section includes a history of the smoking, or tobacco-related health factors, that were collected on or before the date of the Encounter. The data comes from the [place] facility where the Encounter took place. Date/Time Smoking Status/Tobacco Use Comment F sonia March 17, 2023 08:15 AM VA-TOBACCO NEVER USED [facility] Mar 09, 2022 08:15 AM VA-TOBACCO NEVER USED [facility] Mar 10, 2021 08:00 AM VA-TOBACCO NEVER USED [facility] May 24, 2020 08:00 AM LIFETIME NON-SMOKER [facility] Mar 10, 2019 07:57 AM [place]-TOBACCO NEVER USED [facility] Radiology Reports: +/- 30 days of the encounter Radiology Reports For cases when an order for radiology services may have been completed prior to the date of the Encounter, the report list includes the Radiology Reports that were completed up to 30 days before dateof the Encounter. For cases when an order for radiology services may have been completed after the date of the Encounter, the report list also includes the Radiology Reports that were completed up to30 days after date of the Encounter. The data comes from all [place] treatment facilities. Date/Time Radiology Report Provider Source March 15, 2024 08:[address] SINUSES (P): RADHA ETIENNE DAMARIS [id number] -1960 M Exm Date: MARCH 15, 2024@08:54 Req Phys: ASHWIN SOTELO Loc: [facility] (Req'g Loc) Img Loc: CT IMAGING Service: [place] [address] (Case [id number] COMPLETE) CT MAXILLOFACIAL W/O CONTRAST (CT Detailed) CPT:06503 Reason for Study: recurrent sinus infection. CT Stealth pls Clinical History: recurrent sinus infection. Quesitonable nasal vs sinus surgery during childhood. Per Joint Commission Standards, by signing this diagnostic imaging request the ordering provider confirms they have considered patients age and recent imaging history. Defer to radiologist for final CT protocol. Contact number for responsible provider who can be reached for any questions or notifications of critical findings: [phone] If ordering provider is a trainee, enter the name and contact information of the responsible staff physician. dio ashby LAST 3: Collection DT Specimen Test Name Result Units Ref Range 03/17/2023 07:08 PLASMA CREATININE 1.1 mg/dL 0.7 - 1.2 03/09/2022 07:14 PLASMA!! CREATININE 1.0 mg/dL 0.7 - 1.2 10/13/2021 09:25 PLASMA CREATININE 0.9 mg/dL 0.7 - 1.2 03/17/2023 07:08 PLASMA .CREAT EGFR(CKD-E 77 Ref: >=60 03/09/2022 07:14 PLASMA!! .CREAT EGFR(CKD-E 87 Ref: >=60 !! Indicates COMMENTS AVAILABLE...Refer to Interim Lab Report. Allergies: ([place] only) MORPHINE SULFATE INJ (Jan 09, 2015) Report Status: Verified Date Reported: MARCH 16, 2024 Date Verified: MARCH 16, 2024 Dairy Cattle Farmer E-Sig:/ES/LINO HILARIO MD Report: CT MAXILLOFACIAL W/O CONTRAST 03/15/2024 8:54 AM HISTORY: Recurrent sinus infections; questionable history of nasal or sinus surgery during childhood. TECHNIQUE: CT imaging of the maxillofacial region, including the bilateral paranasal sinuses, was performed without contrast. CONTRAST: None. DOSE: DLP: 69.49, mGy.cm/CTDIvol Mean: 4.6, mGy. COMPARISON: None. FINDINGS: Frontal sinuses: Clear bilaterally, but considerably hypoplastic on the right and nearly aplastic on the left. Frontoethmoidal junctions: Well aerated bilaterally. Ethmoid air cells: Minimal to mild scattered mucosal thickening bilaterally. Sphenoid sinuses: Clear bilaterally. Sphenoid sinus ostia: Widely patent bilaterally. Maxillary sinuses: Mild circumferential mucosal thickening on the right. Minimal mucosal thickening on the left is predominantly inferior and superior in location. Trace air-fluid level on the left. Ostiomeatal units: Opacification of the mid through inferolateral portions of the bilateral maxillary infundibula. Nasal septum: Intact. Mild to moderately deviated to the left. Accompanying nasal septal spur projects to the left and slightly indents the medial aspect of the left inferior turbinate. Nasopharynx and bilateral nasal cavity: Well aerated. Cribriform plate and bilateral lamina papyracea: Intact. Sphenoid sinus septum: Inserts slightly to the right of midline. Mastoid air cells: Clear. Additional findings: No aggressive osseous destructive lesion is identified. Osseous fusion and mild to moderate osseous hypertrophy involve the left C2-C3 facet joint. Impression: 1. Inflammatory mucosal disease is mild in the right maxillary sinus, minimal to mild in bilateral ethmoid air cells, and minimal in the left maxillary sinus. An accompanying trace left maxillary sinus air-fluid level likely represents minimal dependent secretions. 2. Opacification of the mid through inferolateral portions of bilateral maxillary infundibula. 3. Mild to moderate leftward nasal septal deviation, with an accompanying nasal septal spur projecting to the left. Nasopharynx and bilateral nasal cavity are well aerated, however. Primary Interpreting Staff: LINO HILARIO MD, RADIOLOGIST (Dairy Cattle Farmer) /[facility] LINO HILARIO [facility] Encounter Notes: All associated encounter notes This section contains the clinical notes associated to the Encounter. Date/Time Encounter Note(s) Provider Source March 15, 2024 08:21 AM INTERNAL MEDICINE NOTE: LOCAL TITLE: MEDICINE CLINIC NOTE STANDARD TITLE: INTERNAL MEDICINE NOTE DATE OF NOTE: MARCH 15, 2024@08:21 ENTRY DATE: MARCH 15, 2024@08:21:39 AUTHOR: COLLEEN SMALL EXP COSIGNER: URGENCY: STATUS: COMPLETED Nurse's notes reviewed from today. RADHA ETIENNE is a 63 year old MALE who presents to clinic for his annual exam HPI: Hyperlipidemia - Has been working on dietary modifications. He states he stopped taking statin as he wanted to see if it was necessary with the dietary changes he was making. States he was having more joint aching while taking simvastatin. Pt complaining of bilateral foot pain radiating from heel with first few steps in morning or after sitting for long time causes significant pain. After moving around gets better. Has been going on for almost past year or so. Has not tried anything to help as of yet. Working with ENT regarding history of multiple sinus infections. Has hx of burn pit exposure as well. Has CT scan today for further evaluation. Will f/u with ENT. Going deep sea fishing in a few months, inquiring about something to take for motion sickness. Family History: Cancer - Metastatic kidney cancer in brother diagnosed at 59 yo. 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 Gastroesophageal reflux disease (SNOMED CT 256970278) 2. Dermatitis (SNOMED CT 22120404) 3. Osteoarthritis of right hip joint (SNOMED CT 194679801647430) - R knee - has done pt and injections- steroids and lubricating injects 4. Low back pain (SNOMED CT 818338183) 5. Other Psoriasis 6. Appendectomy 7. Vasectomy Status 8. Angle of jaw closed fracture 9. Open Treatment of Acute or Chronic Elbow Dislocation 10. Amputation of the Index Finger 11. Obstructive sleep apnea of adult (SNOMED CT 8756107248400) - apap 6-15 12. Ankle pain (SNOMED CT 988984605) 13. Elbow joint pain 14. Contact dermatitis of eyelid 15. Dyslipidemia 16. Obesity 17. Erectile dysfunction (SNOMED CT 125835944) 18. Restless legs 19. Iron deficiency 20. OIF EXPOSURE TO BURN PIT SMOKE 21. DS EXPOSURE TO OIL-WELL FIRE SMOKE 22. DS/OIF EXPOSURE TO SAND/DUST STORMS 23. DS/OIF EXPOSURE TO CONNIE-8 FUEL AND EXHAUST 24. OIF EXPOSURE TO TRIETHYLCHOLINE 25. Louie's esophagus 26. Allergic rhinitis 27. Pain of right shoulder joint 28. Osteoarthritis of right knee joint 29. Chronic rhinitis 30. Exposure to potentially hazardous substance ([facility] [id number]) [facility] Allergies: MORPHINE SULFATE INJ (Jan 09, 2015) Medications: See below EXAM: VS: Temp: 97.5 F [36.4 C] (03/15/2024 07:58) BP: 135/86 (03/15/2024 07:58) Pulse:62 (03/15/2024 07:58) Resp: 18 (03/15/2024 07:58) Pain: 0 (03/15/2024 07:58) Weight: WEIGHTS IN LAST 6 MONTHS: 226.8 (MARCH 15, 2024@07:58:13) 225.8 (OCT 19, 2023@13:00:59) Body Mass Index: 34.5 GENERAL: Well nourished, well developed MALE . Not in acute distress. HEENT: Normocephalic/atraumatic. Eyes non-icteric. Mucous membranes moist. No thyromegaly, no palpable nodules or goiter. CV: Heart regular rate and rhythm. Normal s1, s2. No murmur. LUNGS: Non-labored breathing. Clear to auscultation bilaterally. ABDOMEN: Active bowel sounds. Abdomen soft, non-tender. Liver non-palpable. EXTREMITIES: No distal edema noted in bilateral LE NEURO: Steady gait WAD Data/Labs: HGB A1C: 5.6 GLUCOSE: 94 UREA NITROGEN: 20 CREATININE: 1.1 SODIUM: 142 POTASSIUM: 4.4 CHLORIDE: 110 H CO2: 23 CALCIUM: 9.5 CHOLESTEROL: 238 H MAGNESIUM: 2.1 HDL: 46 ANION GAP: 9 LDL CHOL: 136 H VLDL CHOL: 56 H SGOT(37C): 35 H SGPT(37C): 50 NON HDL CHOLESTEROL: 192 H TRIG(NON FASTING): 279 H CREATININE EGFR (CKD-EPI): 76 WBC: 6.00 RBC: 5.49 HGB: 15.7 HCT: 48.9 MCV: 89.1 MCH: 28.6 MCHC: 32.1 RDW: 13.7 PLT: 222 MPV: 10.2 (x)Patient was informed of available lab, imaging, and other study results associated with today's visit. Assessment and Plan: # Hyperlipidemia Has not been taking simvastatin as was having joint pains with it. Is willing to trial alternative statin. Taking for primary prevention - D/c simvastatin - Trial pravastatin 40mg qhs instead - F/u in 2 months with repeat labs/phone call # Plantar fasciitis - Rest, Ice 3x/day - Topical diclofenac QID PRN - Prosthetics consult for inserts - If no improvement in 2 months (can discuss on phone call), will consider further w/u with xrays/possible podiatry referral # Barretts Esophagus/GERD Louie's detected on endoscopy 05/2020, rec surveillance endoscopy in 05/2023. - Omeprazole 20mg qday - Surveillance endoscopy due 05/2023, ordered consult today # R knee pain s/p TKA on 01/15/22 at [facility] - Per non-VA ortho - Amoxicillin 2g 1 hour prior to dental procedures - APAP 650mg q6 hours PRN - Naprosyn 500mg BID PRN, take with food (do not use with topical diclofenac, either or) - Continue HEP # ED - Sildenafil 50mg PRN # Hx of psoriasis - Vanicream qday - Triamcinolone PRN # Colon polyp Found on colonoscopy 02/2014, recs for repeat c-scope in 5 years, i.e. 2018. C- scope completed 05/2019 without any polyps detected. 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 Has had multiple sinus infections over past year. He is working with ENT to determine if surgical candidate. - Flonase qday - Cetirizine 10mg qday - Per ENT # Motion sickness - Meclizine 25mg TID PRN - Has ondansentron rx as well to use PRN for nausea # Health Care Maintenance - Discussed lab results, will be mailed automatic letter - RTC 1 year w/ labs for annual (x) Patient/Caregiver indicates readiness to learn, verbalizes understanding, agreement and satisfaction with the treatment plan. Patient/Caregiver doesn't have any further questions today. Total time spent on counseling/coordinating care, reviewing records, examining patient and documenting = 35 minutes More than 50% of this was spent counseling/coordinating care for the medical problems outlined above. Medication Reconciliation: Education Evaluations *Was medication education provided for NEW medications or CHANGES to medications? (including medication name, dose, route, reason for use, and potential side effects). Yes. Verbal education was provided to patient/caregiver and patient/caregiver verbalized understanding. TERATOGENIC MED & CONTRACEPTION REVIEW (Optional)... ===== MEDICATION RECONCILIATION ===== Review Done: The medication list shown below was verified for accuracy and it includes all pending medications/active medications/all medications or discontinued within the last 90 days/all remote medications and non-VA medications. If a given category (i.e. remote meds) is not shown, that means that a patient doesn't have a medication(s) in that category. Allergies listed below were also reviewed/updated for accuracy. Allergies/ADR from [facility] may not display in CPRS. Use JLV MRT5 - Allergies/ADRs FACILITY ALLERGY/ADR -------- No Remote Allergy/ADR Data available for this patient [facility] MORPHINE SULFATE INJ Active and Recently Outpatient Medications (including Supplies): Issue Date Status Last Fill Active Outpatient Medications Refills Expiration 1) ACETAMINOPHEN 500MG TAB Qty: 100 for 25 ACTIVE Issu:03-17-23 days Sig: TAKE ONE TO TWO TABLETS Refills: 1 Last:06-18-23 EVERY 6 HOURS NEEDED FOR PAIN *NOT Expr:03-17-24 TO EXCEED 4000MG IN 24 HOURS FROM ALL SOURCES* 2) AMOXICILLIN 500MG CAP Qty: 4 for 10 ACTIVE Issu:03-17-23 days Sig: TAKE FOUR CAPSULES BY MOUTH Refills: 2 Last:02-25-24 ONCE 1 HOUR PRIOR TO DENTAL PROCEDURE Expr:03-17-24 3) CETIRIZINE HCL 10MG TAB Qty: 90 for 90 ACTIVE Issu:01-24-24 days Sig: TAKE ONE TABLET BY MOUTH Refills: 3 Last:02-21-24 EVERY DAY FOR ALLERGIES Expr:01-24-25 4) DICLOFENAC NA 1% TOP GEL Qty: 100 for ACTIVE Issu:03-17-23 30 days Sig: APPLY 2 GRAMS TOPICALLY Refills: 9 Last:08-26-23 FOUR TIMES A DAY NEEDED TO AFFECTED Expr:03-17-24 AREA FOR PAIN. *USE DOSE CARD IN BOX TO MEASURE DOSE. MAX 32 GRAMS PER DAY. FOR SHOULDER PAIN 5) FLUTICASONE PROP 50MCG 120D NASAL INHL ACTIVE Issu:01-24-24 Qty: 3 for 90 days Sig: SPRAY 2 Refills: 3 Last:03-24-24 SPRAYS IN EACH NOSTRIL EVERY DAY FOR Expr:01-24-25 ALLERGIES 6) MULTIVITAMIN CAP/TAB Qty: 100 for 90 ACTIVE Issu:03-17-23 days Sig: TAKE 1 TABLET BY MOUTH Refills: 1 Last:11-17-23 EVERY DAY Expr:03-17-24 7) OMEPRAZOLE 20MG EC CAP Qty: 90 for 90 ACTIVE Issu:03-17-23 days Sig: TAKE ONE CAPSULE BY MOUTH Refills: 1 Last:12-03-23 EVERY DAY ON AN EMPTY STOMACH, AT Expr:03-17-24 LEAST 30 MINUTES PRIOR TO A MEAL TO DECREASE STOMACH ACID 8) SILDENAFIL CITRATE 100MG TAB Qty: 9 for ACTIVE Issu:03-17-23 90 days Sig: TAKE ONE-HALF TABLET BY Refills: 2 Last:09-15-23 MOUTH NEEDED FOR ERECTIONS - TAKE Expr:03-17-24 1 HOUR BEFORE ANTICIPATED SEXUAL ACTIVITY 9) VANICREAM TOP CREAM Qty: 454 for 60 ACTIVE Issu:03-17-23 days Sig: APPLY THIN LAYER TOPICALLY Refills: 4 Last:06-18-23 EVERY DAY TO ALL SKIN, IDEALLY WITHIN Expr:03-17-24 3 MINUTES AFTER BATH OR SHOWER. Issue Date Status Last Fill Pending Outpatient Medications Refills Expiration 1) ACETAMINOPHEN 500MG TAB Qty: 100 Sig: PENDING TAKE ONE TO TWO TABLETS EVERY 6 HOURS Refills: 0 NEEDED FOR PAIN *NOT TO EXCEED 4000MG IN 24 HOURS FROM ALL SOURCES* 2) DICLOFENAC NA 1% TOP GEL Qty: 100 Sig: PENDING APPLY 2 GRAMS TOPICALLY FOUR TIMES A Refills: 0 DAY NEEDED 3) MECLIZINE HCL 25MG CHEW TAB Qty: 30 PENDING Sig: CHEW ONE TABLET BY MOUTH THREE Refills: 0 TIMES A DAY NEEDED 4) MULTIVITAMIN CAP/TAB Qty: 100 Sig: PENDING TAKE 1 TABLET BY MOUTH EVERY DAY Refills: 0 5) OMEPRAZOLE 20MG EC CAP Qty: 90 Sig: PENDING TAKE ONE CAPSULE BY MOUTH EVERY DAY ON Refills: 0 AN EMPTY STOMACH, AT LEAST 30 MINUTES PRIOR TO A MEAL TO DECREASE STOMACH ACID 6) PRAVASTATIN NA 40MG TAB Qty: 60 Sig: PENDING TAKE ONE TABLET BY MOUTH AT BEDTIME Refills: 0 7) SILDENAFIL CITRATE 100MG TAB Qty: 9 PENDING Sig: TAKE ONE-HALF TABLET BY MOUTH Refills: 0 NEEDED FOR ERECTIONS - TAKE 1 HOUR BEFORE ANTICIPATED SEXUAL ACTIVITY 8) VANICREAM TOP CREAM Qty: 454 Sig: PENDING APPLY THIN LAYER TOPICALLY EVERY DAY Refills: 0 TO ALL SKIN, IDEALLY WITHIN 3 MINUTES AFTER BATH OR SHOWER. Issue Date Status Last Fill Inactive Outpatient Medications Refills Expiration 1) AMOXICILLIN 875/CLAV K 125MG TAB Qty: Issu:01-24-24 10 for 5 days Sig: TAKE 1 TABLET BY Refills: 0 Last:01-24-24 MOUTH TWICE A DAY FOR ACUTE SINUSITIS Expr:02-23-24 2) CETIRIZINE HCL 10MG TAB Qty: 90 for 90 DISCONTINUED Issu:03-17-23 days Sig: TAKE ONE TABLET BY MOUTH Refills: 1 Last:12-03-23 EVERY DAY FOR ALLERGIES Expr:03-17-24 3) FLUTICASONE PROP 50MCG 120D NASAL INHL DISCONTINUED Issu:03-17-23 Qty: 3 for 90 days Sig: SPRAY 2 Refills: 0 Last:01-04-24 SPRAYS IN EACH NOSTRIL EVERY DAY FOR Expr:03-17-24 ALLERGIES 4) PSEUDOEPHEDRINE HCL 60MG TAB Qty: 120 Issu:10-19-23 for 30 days Sig: TAKE ONE TABLET BY Refills: 0 Last:10-19-23 MOUTH EVERY 6 HOURS NEEDED FOR Expr:11-18-23 CONGESTION 5) SIMVASTATIN 20MG TAB Qty: 90 for 90 DISCONTINUED Issu:03-19-23 days Sig: TAKE ONE TABLET BY MOUTH AT Refills: 3 Last:03-19-23 BEDTIME FOR CHOLESTEROL Expr:03-19-24 6) SIMVASTATIN 40MG TAB Qty: 45 for 90 DISCONTINUED Issu:03-17-23 days Sig: TAKE ONE-HALF TABLET BY (EDIT) Last:03-19-23 MOUTH AT BEDTIME FOR CHOLESTEROL Refills: 3 Expr:03-17-24 7) SODIUM CHLORIDE 0.65% SOLN NASAL SPRAY Issu:10-19-23 Qty: 45 for 30 days Sig: SPRAY 1-2 Refills: 0 Last:10-19-23 SPRAYS IN EACH NOSTRIL EVERY DAY Expr:11-18-23 NEEDED FOR NASAL DRYNESS Start Date Active Non-VA Medications Refills Expiration 1) Non-VA ACETAMINOPHEN 500MG TAB Sig: ACTIVE 1000MG MOUTH AT BEDTIME 25 Total Medications /piper/ COLLEEN SMALL Physician Treatment Plant Operator Signed: 03/15/2024 08:46 COLLEEN SMALL [facility] March 15, 2024 07:58 AM INTERNAL MEDICINE OUTPATIENT NOTE: LOCAL TITLE: MEDICINE CLINIC NURSING NOTE STANDARD TITLE: INTERNAL MEDICINE OUTPATIENT NOTE DATE OF NOTE: MARCH 15, 2024@07:58 ENTRY DATE: MARCH 15, 2024@07:59:02 AUTHOR: REMIGIO CHARLES COSIGNER: URGENCY: STATUS: COMPLETED TYPE OF VISIT: Appointment Check In Type of appointment: In-person appointment REASON FOR VISIT: Annual ALLERGIES: MORPHINE SULFATE INJ (Jan 09, 2015) VITAL SIGNS: Blood Pressure: 135/86 (03/15/2024 07:58) Pulse: 62 (03/15/2024 07:58) Respiration: 18 (03/15/2024 07:58) Temperature: 97.5 F [36.4 C] (03/15/2024 07:58) Weight: 226.8 lb [102.87 kg] (03/15/2024 07:58) Height: 68.1 in [173.0 cm] (03/15/2024 07:58) BMI: 34.5 O2 Sat: 96% (03/15/2024 07:58) Pain: 0 (03/15/2024 07:58) PAIN SCREEN: Patient is not having significant pain that they wish to discuss with their provider today. COVID-19 Immunization: Refused Pfizer Monovalent COVID-19 vaccine Immunization: COVID-19 (PFIZER), MRNA, LNP-S, PF, CELESTINO-SUCROSE, 30 MCG/0.3 ML (AGES 12+ YEARS) Refusal Reason: PATIENT DECISION Patient refuses all immunization(s) in the COVID-19 group Date Documented: 03/15/24 07:59 Depression Screening: Perform PHQ-2 A PHQ-2 screen was performed. The score was 0 which is a negative screen for depression. Over the past two weeks, how often have you been bothered by the following problems? 1. Little interest or pleasure in doing things Not at all 2. Feeling down, depressed, or hopeless Not at all Alcohol Use Screen (AUDIT-C): Alcohol Screen: SCREEN FOR ALCOHOL (AUDIT-C) An alcohol screening test (AUDIT-C) was negative (score=2). 1. How often did you have a drink containing alcohol in the past year? Consider a drink to be a 12 ounce can or bottle of regular beer, 8 ounces of malt liquor, a 5 ounce glass of table wine, or a 1.5 ounce shot of liquor (like scotch, gin, or vodka). Two to four times a month 2. How many drinks containing alcohol did you have on a typical day when you were drinking in the past year? One or two drinks 3. How often did you have six or more drinks on one occasion in the past year? Never /es/ REMIGIO CHARLES LPN, LPN Signed: 03/15/2024 08:20 REMIGIO CHARLES [facility]
--- OUTSIDE RECORDS SUMMARY | 2024-11-14 13:24 | XMS_ITS | Encounter Summary ---
Author Name [facility] [place] [facility] [place] [facility] [place] Address [address] [place] [address] Care Team Providers Care Setter Automatic Spinning Lathe Name Role Phone COLLEEN SMALL Primary Care Provider Unavailabl e Selected Encounter This section includes the information on record at [place] for the Encounter. Date/Time Encounter Type Encounter Description Reason Pro vider Source Jun 01, 2024 08:20 AM Outpatient Encounter OTOLARYNGOLOGY/ENT IHE Encounter Template Text not used by [place] Plan of Treatment: Future Appointments (+ 6 months) and Future Tests (+/- 45 days) The Plan of Treatment section includes future care activities for the patient from all [place] treatmentfacilities. This section includes future appointments and future orders which are active, pending or scheduled. Future Appointments This section includes appointments that were scheduled to occur 6 months from the date of the Encounter, up to a maximum of 20 appointments. The data comes from all [place] treatment facilities. Appointment Date/Time Appointment Type Appointme nt Facility Name Jun 09, 2024 11:30 AM AMBULATORY - MEDICINE NORBERTO TAVAREZ [facility] Jul 12, 2024 02:40 PM AMBULATORY - SURGERY [facility] Aug 03, 2024 02:00 PM AMBULATORY - SURGERY [facility] Aug 17, 2024 08:15 AM AMBULATORY - SURGERY [facility] Aug 17, 2024 12:00 PM [facility] Nov 02, 2024 12:30 PM [facility] Nov 02, 2024 01:[address] [facility] Nov 02, 2024 01:30 PM [facility] MEDICINE [facility] Lab Results: +/- 30 days of the encounter This section includes the Chemistry and Hematology Lab Results on record with [place] for the patient. Radiology Reports and Pathology Reports are provided separately, in subsequent sections. Lab Results This section contains the Chemistry/Hematology Results that were resulted 30 days before or 30 daysafter the date of the Encounter. Date/Time Source Result Type Result - Unit Interpretation Reference Range Comment May 30, 2024 06:37 AM [facility] AST/SGOT Specimen Type: PLASMA No comment entered. Ordering Provider: COLLEEN SMALL Report Released Date/Time: March 15, 2024 08:34 AM Reporting Lab: [facility] [place] [id number] Performing Lab: [facility] [place] [id number] AST/SGOT 28 U/L 11-34 May 30, 2024 06:37 AM [facility] ALT/SGPT Specimen Type: PLASMA No comment entered. Ordering Provider: COLLEEN SMALL Report Released Date/Time: March 15, 2024 08:34 AM Reporting Lab: [facility] [place] [id number] Performing Lab: [facility] [place] [id number] ALT/SGPT 21 U/L <44 May 30, 2024 06:37 AM [facility] LIPID PANEL,NON-FASTING Specimen Type: PLASMA No comment entered. Ordering Provider: COLLEEN SMALL Report Released Date/Time: March 15, 2024 08:34 AM Reporting Lab: [facility] [place] [id number] Performing Lab: [facility] [place] [id number] CHOLESTEROL 174 mg/dL <199 .HDL 48 mg/dL >40 LDL CALCULATION 98 mg/dL <99 VLDL CALCULATION 28 mg/dL <29 NON HDL CHOLESTEROL 126 mg/dL <129 TRIG(NON FASTING) 142 mg/dL <149 Social History: Smoking Status (Most current) and Tobacco Use (All prior to encounter date) This section includes the most current, and the historical, smoking and tobacco- related health factors from the [place] facility where the Encounter took place. Current Smoking Status This section includes the most current smoking, or tobacco-related health factor, from the [facility] where the Encounter took place. Date/Time Current Smoking Status Comment Jonny cruz Jan 24, 2024 02:45 PM VA-TOBACCO NEVER USED [facility] Tobacco Use History This section includes a history of the smoking, or tobacco-related health factors, that were collected on or before the date of the Encounter. The data comes from the [place] facility where the Encounter took place. Date/Time Smoking Status/Tobacco Use Comment Wes aclachelle March 17, 2023 08:15 AM VA-TOBACCO NEVER USED [facility] Mar 09, 2022 08:15 AM VA-TOBACCO NEVER USED [facility] Mar 10, 2021 08:00 AM VA-TOBACCO NEVER USED [facility] May 24, 2020 08:00 AM LIFETIME NON-SMOKER [facility] Mar 10, 2019 07:57 AM VA-TOBACCO NEVER USED [facility] Encounter Notes: All associated encounter notes This section contains the clinical notes associated to the Encounter. Date/Time Encounter Note(s) Provider Source Jun 01, 2024 08:20 AM REPORT OF CONTACT: LOCAL TITLE: APPOINTMENT SCHEDULING NOTE STANDARD TITLE: REPORT OF CONTACT DATE OF NOTE: JUN 01, 2024@08:20 ENTRY DATE: JUN 01, 2024@08:20:48 AUTHOR: MARY HAQUE EXP COSIGNER: URGENCY: STATUS: COMPLETED Attempted to schedule Return to clinic (RTC) Contact attempt made to 1st attempt Telephone 2nd attempt Letter - Sent letter by regular [place] mail to address on file: RADHA ETIENNE [address], [place] [address] Disposition order request after Jun Left message on voice mail to call back to this number [phone] If [place] calls back, schedule appt for: Return to [facility] on or around ( May 30, 2024 ) for a total of 1 appointment(s) next avail. discuss CT results /es/ MARY HAQUE [facility] MANAGER RISK MANAGEMENT Signed: 06/01/2024 08:21 MARY HAQUE [facility]
--- OUTSIDE RECORDS SUMMARY | 2024-11-14 13:24 | XMS_ITS | Encounter Summary ---
Author Name [facility] Organization [facility] [place] Address [address] [place] [address] Care Team Providers Care Grader Tender Name Role Phone COLLEEN SMALL Primary Care Provider Unavailabl e Selected Encounter This section includes the information on record at [place] for the Encounter. Date/Time Encounter Type Encounter Description Reason Provider Source Jan 24, 2024 09:20 AM Outpatient Encounter TELEPHONE TRIAGE TIFFANIE PICKETT Encounter Template Text not used by [place] Plan of Treatment: Future Appointments (+ 6 months) and Future Tests (+/- 45 days) The Plan of Treatment section includes future care activities for the patient from all [place] treatmentfacilities. This section includes future appointments and future orders which are active, pending or scheduled. Future Appointments This section includes appointments that were scheduled to occur 6 months from the date of the Encounter, up to a maximum of 20 appointments. The data comes from all [place] treatment facilities. Appointment Date/Time Appointment Type Appointme nt Facility Name Mar 02, 2024 10:40 AM AMBULATORY - [place] [facility] March 15, 2024 07:15 AM AMBUL[place]ORY - NONE [place] [facility] March 15, 2024 08:15 AM [place]ORY - [place]ICINE [place] [facility] March 15, 2024 09:00 AM AMBULATORY - NONE [place] [facility] May 30, 2024 06:30 AM AMBUL[place]ORY - NONE [place] [facility] Jun 09, 2024 11:30 AM [place]ORY - MEDICINE [place] [facility] Jul 12, 2024 02:40 PM AMBULATORY - SURGERY AYESHA SCOTT [facility] Vital Signs: All taken on the encounter date This section contains inpatient and outpatient Vital Signs collected on the date of the Encounter. Date/Time Temperature Pulse Blood Pressure Respiratory Rate SP02 Pain Height Weight Body Mass Index Source Jan 24, 2024 02:46 PM 98.4 73 150/91 18 97 SADIE SMITH [facility] Social History: Smoking Status (Most current) and Tobacco Use (All prior to encounter date) This section includes the most current, and the historical, smoking and tobacco- related health factors from the [facility] where the Encounter took place. Current Smoking Status This section includes the most current smoking, or tobacco-related health factor, from the [place] facility where the Encounter took place. Date/Time Current Smoking Status Comment Jonny cruz Jan 24, 2024 02:45 PM VA-TOBACCO NEVER USED [facility] Tobacco Use History This section includes a history of the smoking, or tobacco-related health factors, that were collected on or before the date of the Encounter. The data comes from the [place] facility where the Encounter took place. Date/Time Smoking Status/Tobacco Use Comment F acility March 17, 2023 08:15 AM VA-TOBACCO NEVER USED [facility] Mar 09, 2022 08:15 AM VA-TOBACCO NEVER USED [facility] Mar 10, 2021 08:00 AM VA-TOBACCO NEVER USED [facility] May 24, 2020 08:00 AM LIFETIME NON-SMOKER [facility] Mar 10, 2019 07:57 AM VA-TOBACCO NEVER USED [facility] Encounter Notes: All associated encounter notes This section contains the clinical notes associated to the Encounter. Date/Time Encounter Note(s) Provider Source Jan 24, 2024 09:20 AM RN PROGRESS NOTE: LOCAL TITLE: CCC: CLINICAL TRIAGE STANDARD TITLE: RN PROGRESS NOTE DATE OF NOTE: JAN 24, 2024@09:20:48 ENTRY DATE: JAN 24, 2024@09:20:48 AUTHOR: TIFFANIE PICKETT MA EXP COSIGNER: URGENCY: STATUS: COMPLETED Patient Demographics Patient Name: RADHA ETIENNE Patient Primary [address]: [address] [place] [id number] Patient Primary Phone: [phone] Patient : 1960 Patient Age: 63 Call Back Number: [phone] Caller/Recipient Relation to Patient: Self Emergency Contact: PHAN ETIENNE Triage Summary Chief Complaint: Sinus Congestion System WHEN: Within 3 Days Nurse's Recommendation / WHEN: Within 3 Days Nurse's Other / WHEN: <24 hours System WHERE: Clinic Nurse's Recommendation / WHERE: Clinic/[facility] Nursing Plan and Disposition Referred Patient for In-Person Appt Transferred patient to Sched & Admin-Apt Nurse Summary Nurse Summary: PATIENT CONCERN/DURATION/ONSET: Problem with sinuses since . Nasal congestion with sinus headaches around nose and into eyes and forehead. Nasal drainage green to clear. Irritated throat and cough. No fevers. WHAT HAS PATIENT TRIED TO TREAT THE SYMPTOMS: Sudafed not helping HISTORY/PREVIOUS TREATMENT: Sinus infection in October. WHAT IS PATIENT GOAL FOR THE CALL: Appt with PCP Was Care Now considered (TELE or VVC)? PLATFORM MAN DISPOSITION: Recommended triage is medical attention today due to history of sinus infections. Scheduled with PCP today. Best contact for is (Verified). [phone] This note was created by a [address] drum straightener. Please do not alert this nurse by adding as a signer for future communications. Alerts are not monitored by this user, please reach out to [place] [employer] instead if indicated. Clinical Contact Center Codes Clinic/Location: [address] PHONE [facility] RN [facility] Triage Complete Triage Note: Phone Triage 24 Jan 2024 14:16:35 +0000 [facility] Demographics 63 y/o Male Results CC: Sinus Congestion Software suggested: Within 3 Days Software suggested follow-up location: Clinic, consider [facility] Values and Measures Duration of CC: 4 Days Positive Responses HPI: cough, new or worsening HPI: cough, purulent sputum HPI: nasal congestion, duration longer than 2 days HPI: pain, maxillary or frontal sinuses HPI: rhinorrhea, yellow or brown HPI: sore throat VS: respiratory rate not taken VS: temperature not taken Negative Responses Denies: HPI: breathing more rapidly than usual Denies: HPI: chest pain, pleuritic Denies: HPI: confusion, new or worsening Denies: HPI: cough, duration longer than 2 weeks Denies: HPI: cough, moderate to severe Denies: HPI: cough, severe, onset within past 3 hours Denies: HPI: cough, worsening for more than 1 week Denies: HPI: dyspnea on exertion, worse than usual Denies: HPI: dyspnea, new or worsening Denies: HPI: fever, subjective Denies: HPI: hemoptysis, blood-streaked sputum Denies: HPI: maxillary or frontal sinus pain, severe, duration longer than 2 hours Denies: HPI: sore throat, moderate to severe Denies: HPI: vomiting Denies: HPI: wheezing, new or worsening Denies: MEDS: antibiotic Denies: MEDS: chemotherapy Denies: MEDS: home oxygen Denies: PMH: CHF Denies: PMH: diabetes Denies: PMH: heart disease Denies: PMH: HIV positive Denies: PMH: sickle cell anemia Denies: PSH: organ transplant Denies: PSH: spleen removed /es/ TIFFANIE PICKETT, RN [id number] 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
--- OUTSIDE RECORDS SUMMARY | 2024-11-14 13:24 | XMS_ITS | Encounter Summary ---
Author Name [facility] [place] [facility] [place] [facility] [place] Address [address] [place] [address] Care Team Providers Care Activities Leader Name Role Phone COLLEEN SMALL Primary Care Provider Unavailabl e Selected Encounter This section includes the information on record at [place] for the Encounter. Date/Time Encounter Type Encounter Description Reason Provider Source Mar 02, 2024 10:40 AM OFFICE O/P EST MOD 30 MIN OTOLARYNGOLOGY/EN T ICD-10-CM R09.81 Nasal congestion KIMBERLY MCGOVERN Encounter Template Text not used by [place] Assessments - Encounter Diagnoses This section includes the primary and secondary diagnoses documented for the Encounter. Date/Time Primary/Secondary Diagnosis Diagnosis Name Provider Source Mar 02, 2024 11:10 AM PRIMARY Nasal congestion ASHWIN SOTELO [facility] Plan of Treatment: Future Appointments (+ 6 months) and Future Tests (+/- 45 days) The Plan of Treatment section includes future care activities for the patient from all [place] treatmentfacilities. This section includes future appointments and future orders which are active, pending or scheduled. Future Appointments This section includes appointments that were scheduled to occur 6 months from the date of the Encounter, up to a maximum of 20 appointments. The data comes from all [place] treatment facilities. Appointment Date/Time Appointment Type Appointme nt Facility Name March 15, 2024 07:15 AM AMBULATORY - NONE [facility] March 15, 2024 08:15 AM AMBUL[facility]ORY - [place]IC[place] [facility] March 15, 2024 09:00 AM AMBULATORY - NONE [place] [facility] May 30, 2024 06:30 AM AMBULATORY - NONE [place] [facility] Jun 09, 2024 11:30 AM AM[place]UL[place]ORY - [place]IC[place] [facility] Jul 12, 2024 02:40 PM AMBULATORY - SURGERY [place] [facility] Aug 03, 2024 02:00 PM AMBULATORY - SURGERY [place] [facility] Aug 17, 2024 08:15 AM AMBULATORY - SURGERY [place] [facility] Aug 17, 2024 12:00 PM AMBULATORY - NONE [place] [facility] Lab Results: +/- 30 days of the encounter This section includes the Chemistry and Hematology Lab Results on record with [facility] for the [facility]. Radiology Reports and Pathology [...] March 17, 2023 09:36 AM Reporting Lab: [facility] [id number] Performing Lab: [facility] [id number] AST/SGOT 35 U/L H <34 March 15, 2024 06:41 AM [facility] ALT/SGPT Specimen Type: PLASMA Comment: Elevated triglyceride result from a non-fasting specimen should be interpreted with caution. A fasting panel is recommended for accurate triglycerides when trigs are >200 from a non-fasting specimen. Ordering Provider: COLLEEN SMALL Report Released Date/Time: March 17, 2023 09:36 AM Reporting Lab: [facility] [id number] Performing Lab: [facility] [id number] ALT/SGPT 50 U/L <55 March 15, 2024 [...] March 17, 2023 09:36 AM Reporting Lab: [facility] [id number] Performing Lab: [facility] [id number] HEMOGLOBIN A1C 5.6 4.0-6.0 March 15, 2024 06:41 AM [facility] CBC Specimen Type: BLOOD No comment entered. Ordering Provider: COLLEEN SMALL Report Released Date/Time: March 17, 2023 09:36 AM Reporting Lab: [facility] [id number] Performing Lab: [facility] [id number] WBC 6.00 10*3/uL 4.0-11.0 RBC 5.49 10*6/uL [...] March 17, 2023 09:36 AM Reporting Lab: [facility] [id number] Performing Lab: [facility] [id number] CREATININE 1.1 mg/dL 0.7-1.2 UREA NITROGEN 20 [...] March 17, 2023 09:36 AM Reporting Lab: [facility] [id number] Performing Lab: [facility] [address] CHOLESTEROL 238 mg/dL H <199 .HDL 46 mg/dL >40 LDL CALCULATION 136 mg/dL H <99 VLDL CALCULATION 56 mg/dL H <29 NON HDL CHOLESTEROL 192 mg/dL H <129 TRIG(NON FASTING) 279 mg/dL H <149 Social History: Smoking Status (Most current) and Tobacco Use (All prior to encounter date) This section includes the most current, and the historical, smoking and tobacco- related health factors from the [place] facility where the Encounter took place. Current Smoking Status This section includes the most current smoking, or tobacco-related health factor, from the [place] facility where the Encounter took place. Date/Time Current Smoking Status Comment Jonny cruz Jan 24, 2024 02:45 PM [facility]-TOBACCO NEVER USED [facility] Tobacco Use History This section includes a history of the smoking, or tobacco-related health factors, that were collected on or before the date of the Encounter. The data comes from the [place] facility where the Encounter took place. Date/Time [...] [facility] Mar 10, 2019 07:57 AM [facility]-TOBACCO NEVER USED [facility] Radiology [...] the Encounter. The data comes from all [place] treatment facilities. Date/Time Radiology Report Provider Source March 15, 2024 08:[address] SINUSES (P): RADHA ETIENNE [id number] -1960 M Exm Date: MARCH 15, 2024@08:54 Req Phys: ASHWIN SOTELO Loc: [facility] (Req'g Loc) Img Loc: CT IMAGING Service: [place] [address] (Case [id number] COMPLETE) CT MAXILLOFACIAL W/O CONTRAST (CT Detailed) CPT:75688 Reason for Study: recurrent sinus infection. CT [...] any questions or notifications of critical findings: [id number] If ordering provider is a trainee, enter the name and contact information of the responsible staff physician. kimberly mcgovern LAST 3: Collection DT Specimen Test Name Result Units Ref Range 03/17/2023 07:08 PLASMA CREATININE 1.1 mg/dL 0.7 - 1.2 03/09/2022 07:14 PLASMA!! CREATININE 1.0 mg/dL 0.7 - 1.2 10/13/2021 09:25 PLASMA CREATININE 0.9 mg/dL 0.7 - 1.2 03/17/2023 07:08 PLASMA .CREAT EGFR(CKD-E 77 Ref: >=60 03/09/2022 07:14 PLASMA!! .CREAT EGFR(CKD-E 87 Ref: >=60 !! Indicates COMMENTS AVAILABLE...Refer to Interim Lab Report. Allergies: ([facility] only) MORPHINE SULFATE INJ (Jan 09, 2015) Report Status: Verified Date Reported: MARCH 16, 2024 Date Verified: MARCH 16, 2024 Film Librarian E-Sig:/ES/LINO HILARIO MD Report: CT MAXILLOFACIAL W/O [...] Primary Interpreting Staff: LINO HILARIO MD, RADIOLOGIST (Film Librarian) /[facility] LINO HILARIO [facility] Encounter Notes: All associated encounter notes This section contains the clinical notes associated to the Encounter. Date/Time Encounter Note(s) Provider Source Mar 02, 2024 10:46 AM OTOLARYNGOLOGY CONSULT: LOCAL TITLE: ENT CONSULT STANDARD TITLE: OTOLARYNGOLOGY CONSULT DATE OF NOTE: MAR 02, 2024@10:46 ENTRY DATE: MAR 02, 2024@10:47:05 AUTHOR: ASHWIN SOTELO EXP COSIGNER: URGENCY: STATUS: COMPLETED ENT CONSULT Has ADDENDA ENT Consult 03/02/2024 CC: Recurrent acute sinus infections. sinus infections 3x/yr over the last 2yrs during fall-spring seasons. Symptoms are facial pressure, nasal congestion. he goes into urgent care and recieves abx and these typically clear up. He gets relief but not 100% after abx. No seasonal allergies. Never had CT of sinuses. Flonase and cetrizine daily for 1.5yrs. It does not help reduce the amount of sinus infections a year. NO nasal trauma. Rhinoplasty vs septoplasty when he was 14 years of age- they widened nasal passage and removed adenoids. He stayed in the hospital 2 days after this. He was having trouble back then breathing through nose. It did improve breathing. He has GILLIAN he uses CPAP. PMH: Barrets esophagaus,PTSD, HLD, RLS, GILLIAN PSH: Septoplasty Meds: Reviewed no anticoagulations Exam: General: Alert, sitting in NAD, pleasant affect, normal ability to communicate. Craniofacial: Normocephalic, atraumatic, normal facial architecture. Symmetric facial features. Skin: Healthy, no lesions. Eyes: Extraocular movements intact, clear sclerae. Ears: Bilateral pinnae normal.Blood on right lynsey symba no obvious lesions. Hearing aids in place Nose: External nose fairly symmetric, anterior rhinoscopy without polyps or purulence. See endoscopic exam Oral Cavity: Moist mucous membranes. No lesions on inspection of the floor of mouth, tongue, Neck: Supple without palpable lymphadenopathy or thyromegaly. No masses. Neuro: CN III-XII grossly intact. Pulm: Breathing unlabored on room air Rigid nasal endoscopy topical anesthetic and decongestant placed. Zero degree scope inserted into right nasal passage. No masses, polyps, or mucopurlence. Middle meatus without drainage. Left nasal passage no masses or drainage. Left middle meatus looks to have possible surgical changes. The uncinate appears missing and maxillary antrostomy performed. A&P: Recurrent acute sinusitis Possible sinus surgery during childhood vs septoplasty vs septorhinoplasty? Patient having 3 infections a year that cause lots of pain, congestion, and drainage. He last recoverd from one in Dec. He had a questionable nasal surgery during childhood. He called it a septorhinoplasty with adneoid removal which he had to be admitted for 2 days after surgery. When I look in the left nasal cavity there appears to be changes to the uncinate and maxillary wall.WE need to obtain a CT scan to evalaute the sinues and see if he is a srugical candidate. I spent 30min on this encounter. Dr. Kimberly Mcgovern saw and evaluated the patient with me, and agrees with the findings, assessment and plan as outlined. /piper/ ASHWIN SOTELO MD OTOLARYNGOLOGY Signed: 03/02/2024 11:10 Receipt Acknowledged By: 03/02/2024 11:18 /piper/ KIMBERLY MCGOVERN MD OTOLARYNGOLOGY SURGEON 03/06/2024 ADDENDUM STATUS: COMPLETED Scopes used during procedure EAR, NOSE, THROAT RIGID KLINE II 0 DEGREE TELESCOPE ([id number]) [id number] /piper/ JERRY MALIK RN, BSN, PHN Registered Nurse Signed: 03/06/2024 11:32 ASHWIN SOTELO [facility]
--- OUTSIDE RECORDS SUMMARY | 2024-11-14 13:24 | XMS_ITS | Encounter Summary ---
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 Date/Time Encounter Type Encounter Description Reason Pro vider Source Jan 24, 2024 03:18 PM Outpatient Encounter [facility] Encounter Template Text not used by [place] Plan of Treatment: Future Appointments (+ 6 months) and Future Tests (+/- 45 days) The Plan of Treatment section includes future care activities for the patient from all [place] treatmentfacilities. This section includes future appointments and future orders which are active, pending or scheduled. Future Appointments This section includes appointments that were scheduled to occur 6 months from the date of the Encounter, up to a maximum of 20 appointments. The data comes from all [place] treatment facilities. Appointment Date/Time Appointment Type Appointme nt Facility Name Mar 02, 2024 10:40 AM AMBULATORY - SURGERY [place] [facility] March 15, 2024 07:15 AM AMBULATORY - NONE [place] [facility] March 15, 2024 08:15 AM [facility] March 15, 2024 09:00 AM AMBULATORY - NONE [place] [facility] May 30, 2024 06:30 AM AMBUL[place]ORY - NONE [place] [facility] Jun 09, 2024 11:30 AM [facility] Jul 12, 2024 02:40 PM AMBULATORY - SURGERY [facility] [place] [facility] Vital Signs: All taken on the encounter date This section contains inpatient and outpatient Vital Signs collected on the date of the Encounter. Date/Time Temperature Pulse Blood Pressure Respiratory Rate SP02 Pain Height Weight Body Mass Index Source Jan 24, 2024 02:46 PM 98.4 73 150/91 18 97 [facility] Social History: Smoking Status (Most current) and Tobacco Use (All prior to encounter date) This section includes the most current, and the historical, smoking and tobacco- related health factors from the [place] facility where the Encounter took place. Current Smoking Status This section includes the most current smoking, or tobacco-related health factor, from the [place] facility where the Encounter took place. Date/Time Current Smoking Status Comment Jonny mayerrachael Jan 24, 2024 02:45 PM [place]-TOBAC[place] NEVER [facility] Tobacco Use History This section includes a history of the smoking, or tobacco-related health factors, that were collected on or before the date of the Encounter. The data comes from the [place] facility where the Encounter took place. Date/Time Smoking Status/Tobacco Use Comment F acility March 17, 2023 08:15 AM [facility]-TOBACCO NEVER USED [facility] Mar 09, 2022 08:15 AM VA-TOBACCO NEVER USED [facility] Mar 10, 2021 08:00 AM VA-TOBACCO NEVER USED [facility] May 24, 2020 08:[address]-SMOKER [facility] Mar 10, 2019 07:57 AM VA-TOBACCO NEVER USED [facility] Encounter Notes: All associated encounter notes This section contains the clinical notes associated to the Encounter. Date/Time Encounter Note(s) Provider Source Jan 24, 2024 03:18 PM EDUCATION NOTE: LOCAL TITLE: EDUCATION MEDICATION INSTRUCTION STANDARD TITLE: EDUCATION NOTE DATE OF NOTE: JAN 24, 2024@15:18 ENTRY DATE: JAN 24, 2024@15:18:51 AUTHOR: GWYN MIKE COSIGNER: URGENCY: STATUS: COMPLETED MEDICATION EDUCATION PARTICIPANTS: Patient TEACHING STRATEGY: Face to Face READINESS TO LEARN: No barriers identified LEARNING NEEDS/OBJECTIVES Participant(s) indicates readiness to learn and has been instructed on indications, side effects, and directions for use. Participant(s) will receive medication information sheets for medications filled. Education included discussion of the following: New medication(s): AMOXICILLIN 875/CLAV K 125MG TAB PATIENT/FAMILY RESPONSE (OUTCOME): Verbalizes critical information about the topic FOLLOW-UP RECOMMENDED: None needed /piper/ GWYN MIKE PHARMACIST Signed: 01/24/2024 15:[address] [facility]
--- OUTSIDE RECORDS SUMMARY | 2024-11-14 13:24 | XMS_ITS | Encounter Summary ---
Author Name [facility] [place] Organization [facility] [place] Address [address] [place] [address] Care Team Providers Care Can Solderer Name Role Phone COLLEEN SMALL Primary Care Provider Unavailabl e Selected Encounter This section includes the information on record at [place] for the Encounter. Date/Time Encounter Type Encounter Description Reason Provider Source Jan 24, 2024 02:45 PM OFFICE O/P EST MOD 30 MIN PRIMARY CARE/MEDICINE ICD-10-CM J01.91 Acute recurrent sinusitis, unspecified COLLEEN SMALL Day[place] Encounter Template Text not used by [place] Assessments - Encounter Diagnoses This section includes the primary and secondary diagnoses documented for the Encounter. Date/Time Primary/Secondary Diagnosis Diagnosis Name Provider Source Jan 24, 2024 03:10 PM PRIMARY Acute recurrent sinusitis, unspecified COLLEEN SMALL [facility] Plan of Treatment: Future Appointments (+ 6 months) and Future Tests (+/- 45 days) The Plan of Treatment section includes future care activities for the patient from all [place] treatmentfacilities. This section includes future appointments and future orders which are active, pending or scheduled. Future Appointments This section includes appointments that were scheduled to occur 6 months from the date of the Encounter, up to a maximum of 20 appointments. The data comes from all [place] treatment facilities. Appointment Date/Time Appointment Type Appointme nt Facility Name Mar 02, 2024 10:40 AM AMBULATORY - SURGERY [facility] March 15, 2024 07:15 AM AM[facility]ORY - NONE [facility] March 15, 2024 08:15 AM [facility] March 15, 2024 09:00 AM [facility] May 30, 2024 06:30 AM [facility] Jun 09, 2024 11:30 AM [facility] Jul 12, 2024 02:40 PM AMBULATORY - SURGERY [facility] Vital Signs: All taken on the encounter date This section contains inpatient and outpatient Vital Signs collected on the date of the Encounter. Date/Time Temperature Pulse Blood Pressure Respiratory Rate SP02 Pain Height Weight Body Mass Index Source Jan 24, 2024 02:46 PM 98.4 73 150/91 18 97 [facility] Social History: Smoking Status (Most current) and Tobacco Use (All prior to encounter date) This section includes the most current, and the historical, smoking and tobacco- related health factors from the [place] facility where the Encounter took place. Current Smoking Status This section includes the most current smoking, or tobacco-related health factor, from the [place] facility where the Encounter took place. Date/Time Current Smoking Status Comment Jonny cruz Jan 24, 2024 02:45 PM [place]-TOBACCO NEVER USED [facility] Tobacco Use History This section includes a history of the smoking, or tobacco-related health factors, that were collected on or before the date of the Encounter. The data comes from the [place] facility where the Encounter took place. Date/Time Smoking Status/Tobacco Use Comment F aclachelle March 17, 2023 08:15 AM VA-TOBACCO NEVER USED [facility] Mar 09, 2022 08:15 AM VA-TOBACCO NEVER USED [facility] Mar 10, 2021 08:00 AM VA-TOBACCO NEVER USED [facility] May 24, 2020 08:00 AM LIFETIME NON-SMOKER [facility] Mar 10, 2019 07:57 AM VA-TOBACCO NEVER USED [facility] Encounter Notes: All associated encounter notes This section contains the clinical notes associated to the Encounter. Date/Time Encounter Note(s) Provider Source Jan 24, 2024 02:51 PM INTERNAL MEDICINE NOTE: LOCAL TITLE: MEDICINE CLINIC NOTE STANDARD TITLE: INTERNAL MEDICINE NOTE DATE OF NOTE: JAN 24, 2024@14:51 ENTRY DATE: JAN 24, 2024@14:51:51 AUTHOR: COLLEEN SMALL EXP COSIGNER: URGENCY: STATUS: COMPLETED Nurse's notes reviewed from today. RADHA ETIENNE is a 63 year old MALE who presents to clinic with CC of sinus issues HPI: Pt reports over past week or so has noticed increased sinus pressure and drainage. Drainage is green in color and thick/purulent. Today is having significant pain and pressure in his paranasal sinuses and sinus headache. Having congestion in nose and drainage down back of throat. Has taken tylenol cold and flu which is minimally helpful. Takes cetirizine and flonase very regularly every day. Denies any ear pain. Feels exactly like prior sinus infection which he required antibiotics for. States in 10/2023 attempted to wait it out and avoid antibiotics, ended up getting significantly worse and developed into a pneumonia. Pt reports has had two sinus infections prior this winter requiring antibiotics. Also last winter has 2-3 episodes last winter requiring antibiotics. Active problems - Computerized Problem List is the source for the followin. Gastroesophageal reflux disease (SNOMED CT 676062777) 2. Dermatitis (SNOMED CT 08818310) 3. Osteoarthritis of right hip joint (SNOMED CT 493615218151076) - R knee - has done pt and injections- steroids and lubricating injects 4. Low back pain (SNOMED CT 793782390) 5. Other Psoriasis 6. Appendectomy 7. Vasectomy Status 8. Angle of jaw closed fracture 9. Open Treatment of Acute or Chronic Elbow Dislocation 10. Amputation of the Index Finger 11. Obstructive sleep apnea of adult (SNOMED CT 3759655572943) - apap 6-15 12. Ankle pain (SNOMED CT 625243519) 13. Elbow joint pain 14. Contact dermatitis of eyelid 15. Dyslipidemia 16. Obesity 17. Erectile dysfunction (SNOMED CT 326460534) 18. Restless legs 19. Iron deficiency 20. [...] rhinitis 30. Exposure to potentially hazardous substance ([facility] [id number]) - Entered through [facility]/VISN23 INDRA Documentation Initiative Allergies: MORPHINE SULFATE INJ (Jan 09, 2015) Medications: See below EXAM: VS: Temp: 98.4 F [36.9 C] (01/24/2024 14:46) BP: 150/91 (01/24/2024 14:46) Pulse:73 (01/24/2024 14:46) Resp: 18 (01/24/2024 14:46) Pain: 0 (10/19/2023 13:00) Weight: WEIGHTS IN LAST 6 MONTHS: 225.8 (OCT 19, 2023@13:00:59) GENERAL: Well nourished, well developed MALE . Not in acute distress. HEENT: Normocephalic/atraumatic. Eyes non-icteric. External ear canals clear, bilaterally. TM connelly and intact without erythema, bilaterally. Erythematous and edematous nasal passages. + sinus tenderness over ethmoid sinuses and maxillary sinuses. Mucous membranes moist CV: Heart regular rate and rhythm. Normal s1, s2. No murmur. LUNGS: Non-labored breathing. Clear to auscultation bilaterally. Assessment and Plan: # Acute sinusitis Although pt has only had symptoms for past week (<10 days), pt has had complications with pneumonia with past sinus infections when left untreated. On exam has erythematous/edematous nasal passages and green purulent nasal drainage in setting of significant sinus pain and drainage. Very similar presentation to past sinus infections requiring antibiotics. Will prescribe augmentin at this time. Has been recurrent problem, with 3 sinus infections both last winter and this year now despite faithful use of flonase and cetirizine daily. Will consult ENT - Augmentin BID x 5 days - ENT consult for recurrent sinusitis issues despite regular use of flonase and cetirizine # Health Care Maintenance - RTC PRN or as previously scheduled (x) Patient/Caregiver indicates readiness to learn, verbalizes understanding, agreement and satisfaction with the treatment plan. Patient/Caregiver doesn't have any further questions today. Total time spent on counseling/coordinating care, reviewing records, examining patient and documenting = 30 minutes More than 50% of this was [...] were also reviewed/updated for accuracy. Allergies/ADR from [facility] may not display in CPRS. Use JLV MRT5 - Allergies/ADRs FACILITY ALLERGY/ADR -------- No Remote Allergy/ADR Data available for this patient [place] [facility] MORPHINE SULFATE INJ Active and Recently Outpatient [...] Sig: TAKE FOUR CAPSULES BY MOUTH Refills: 3 Last:11-17-23 ONCE 1 HOUR PRIOR TO DENTAL PROCEDURE Expr:03-17-24 3) CETIRIZINE HCL 10MG TAB Qty: 90 for 90 ACTIVE Issu:03-17-23 days Sig: TAKE ONE TABLET BY MOUTH Refills: 1 Last:12-03-23 EVERY DAY FOR ALLERGIES Expr:03-17-24 4) DICLOFENAC NA 1% TOP GEL Qty: 100 for ACTIVE Issu:03-17-23 30 days Sig: APPLY 2 GRAMS TOPICALLY Refills: 9 Last:08-26-23 FOUR TIMES A DAY NEEDED TO AFFECTED Expr:03-17-24 AREA FOR PAIN. *USE DOSE CARD IN BOX TO MEASURE DOSE. MAX 32 GRAMS PER DAY. FOR SHOULDER PAIN 5) FLUTICASONE PROP 50MCG 120D NASAL INHL ACTIVE Issu:03-17-23 Qty: 3 for 90 days Sig: SPRAY 2 Refills: 0 Last:01-04-24 SPRAYS IN EACH NOSTRIL EVERY DAY FOR Expr:03-17-24 ALLERGIES 6) MULTIVITAMIN CAP/TAB Qty: 100 for [...] 1 HOUR BEFORE ANTICIPATED SEXUAL ACTIVITY 9) SIMVASTATIN 20MG TAB Qty: 90 for 90 ACTIVE Issu:03-19-23 days Sig: TAKE ONE TABLET BY MOUTH AT Refills: 3 Last:03-19-23 BEDTIME FOR CHOLESTEROL Expr:03-19-24 10) VANICREAM TOP CREAM Qty: 454 for 60 ACTIVE Issu:03-17-23 days Sig: APPLY THIN LAYER TOPICALLY Refills: 4 Last:06-18-23 EVERY DAY TO ALL SKIN, IDEALLY WITHIN Expr:03-17-24 3 MINUTES AFTER BATH OR SHOWER. Issue Date Status Last Fill Pending Outpatient Medications Refills Expiration 1) AMOXICILLIN 875/CLAV K 125MG TAB Qty: PENDING 10 Sig: TAKE 1 TABLET BY MOUTH TWICE Refills: 0 A DAY 2) CETIRIZINE HCL 10MG TAB Qty: 90 Sig: PENDING TAKE ONE TABLET BY MOUTH EVERY DAY FOR Refills: 0 ALLERGIES 3) FLUTICASONE PROP 50MCG 120D NASAL INHL PENDING Qty: 3 Sig: SPRAY 2 SPRAYS IN EACH Refills: 0 NOSTRIL EVERY DAY FOR ALLERGIES Issue Date Status Last Fill Inactive Outpatient Medications Refills Expiration 1) PSEUDOEPHEDRINE HCL 60MG TAB Qty: 120 Issu:10-19-23 for 30 days Sig: TAKE ONE TABLET BY Refills: 0 Last:10-19-23 MOUTH EVERY 6 HOURS NEEDED FOR Expr:11-18-23 CONGESTION 2) SIMVASTATIN 40MG TAB Qty: 45 for 90 DISCONTINUED Issu:03-17-23 days Sig: TAKE ONE-HALF TABLET BY (EDIT) Last:03-19-23 MOUTH AT BEDTIME FOR CHOLESTEROL Refills: 3 Expr:03-17-24 3) SODIUM CHLORIDE 0.65% SOLN NASAL SPRAY Issu:10-19-23 Qty: 45 for 30 days Sig: SPRAY 1-2 Refills: 0 Last:10-19-23 SPRAYS IN EACH NOSTRIL EVERY DAY Expr:11-18-23 NEEDED FOR NASAL DRYNESS Start Date Active Non-VA Medications Refills Expiration 1) Non-VA ACETAMINOPHEN 500MG TAB Sig: ACTIVE 1000MG MOUTH AT BEDTIME 17 Total Medications /es/ COLLEEN SMALL Physician Stoner Out Signed: 01/24/2024 15:10 COLLEEN SMALL [facility] Jan 24, 2024 02:47 PM INTERNAL MEDICINE OUTPATIENT NOTE: LOCAL TITLE: MEDICINE CLINIC NURSING NOTE STANDARD TITLE: INTERNAL MEDICINE OUTPATIENT NOTE DATE OF NOTE: JAN 24, 2024@14:47 ENTRY DATE: JAN 24, 2024@14:47:55 AUTHOR: CRYSTAL PEREZ EXP COSIGNER: URGENCY: STATUS: COMPLETED MEDICINE CLINIC NURSING NOTE Has ADDENDA TYPE OF VISIT: Appointment Check In Type of appointment: In-person appointment REASON FOR VISIT: Clogged sinnius ALLERGIES: MORPHINE SULFATE INJ (Jan 09, 2015) VITAL SIGNS: Blood Pressure: 150/91 (01/24/2024 14:46) Pulse: 73 (01/24/2024 14:46) Respiration: 18 (01/24/2024 14:46) Temperature: 98.4 F [36.9 C] (01/24/2024 14:46) Weight: 225.8 lb [102.42 kg] (10/19/2023 13:00) Height: 68.1 in [173.0 cm] (06/29/2023 08:34) BMI: 34.3 O2 Sat: 97% (01/24/2024 14:46) Pain: 0 (10/19/2023 13:00) PAIN SCREEN: Patient is not having significant pain that they wish to discuss with their provider today. MEDICATION Over the Counter/Herbal Medications: The patient denies taking any outside medications or herbals. /piper/ CRYSTAL PEREZ LPN Signed: 01/24/2024 14:48 01/24/2024 ADDENDUM STATUS: COMPLETED COVID-19 Immunization: Refused Moderna Monovalent COVID-19 vaccine Immunization: COVID-19 (MODERNA), MRNA, LNP-S, PF, 50 MCG/0.5 ML (AGES 12+ YEARS) Refusal Reason: PATIENT DECISION Patient refuses all immunization(s) in the COVID-19 group Date Documented: 01/24/24 14:50 Nursing Annual Screening: Fall History Screen During the past 12 months, have you had any falls? Patient does not report any falls in the past 12 months. MEDICATIONS: Patient does not have an active prescription for one of the following medications: Antihypertensives, Antidepressants, Antipsychotics, Diuretics, or Opioid Analgesics (Contolled Substance medications used for pain). Script Talk Screen Are you able to read your prescription bottles with your glasses, magnifiers or other aids? Yes or patient not taking any prescriptions. Skin Screen Patient reports any current pressure ulcers, a history of pressure ulcers, or a wound from a electromedical equipment technician or Patient is bed-confined or a wheelchair-user or Patient requires assistance to transfer/change position No, Skin Screen is Negative Home Abuse/Violence Screen Is your home free of abuse and violence? Yes MOVE! Program Screen Body Mass Index (BMI)= 34.3 [facility]: Collection DT Specimen Test Name Result Units Ref Range 03/17/2023 07:08 BLOOD !! HEMOGLOBIN A1C 5.5 % 4.0 - 6.0 !! Indicates COMMENTS AVAILABLE...Refer to Interim Lab Report. [place] Hgb A1C: No data available [place] Hgb A1C: No data available Point of Care Hgb A1C: POC HGB A1C____ No Outpatient Nutrition Screen Body Mass Index (BMI)= 34.3 [facility]: Collection DT Specimen Test Name Result Units Ref Range 03/17/2023 07:08 BLOOD !! HEMOGLOBIN A1C 5.5 % 4.0 - 6.0 !! Indicates COMMENTS AVAILABLE...Refer to Interim Lab Report. [place] Hgb A1C: No data available [place] Hgb A1C: No data available Point of Care Hgb A1C: POC HGB A1C____ Is patient's BMI less than 18.5? No Does patient have swallowing, coughing, or chewing problems affecting oral intake? No Has patient experienced unplanned weight loss or gain greater than 10 pounds over the last 2 months? No Is patient's Hgb A1C (Glycosylated Hemoglobin) greater than 9.5? Information not available Is patient receiving Total Parenteral Nutrition (TPN) or Tube Feedings? No Patient Health Education Screen BARRIERS/SPECIAL NEEDS: No barriers identified PREFERRED STYLE OF LEARNING: No preference stated Client Assistive Service (EDITH) Screen Does the patient require assistance with outpatient visit? No Tobacco Use Screening: The patient has never used tobacco. /piper/ CRYSTAL PEREZ GUIDANCE SECRETARY Signed: 01/24/2024 14:51 CRYSTAL PEREZ [facility] Jan 24, 2024 02:31 PM ADVANCE DIRECTIVE: LOCAL TITLE: AD NOTIFICATION AND SCREENING STANDARD TITLE: ADVANCE DIRECTIVE DATE OF NOTE: JAN 24, 2024@14:31 ENTRY DATE: JAN 24, 2024@14:31:06 AUTHOR: MELISSA LUCIA EXP COSIGNER: URGENCY: STATUS: COMPLETED ADVANCE DIRECTIVE NOTIFICATION: Patient was given written notification of the following rights: 1. Accept or refuse any medical treatment. 2. Complete a durable power of bankruptcy attorney for health care. 3. Complete a living will. ADVANCE DIRECTIVE SCREENING: Does patient have an Advance Directive? The patient has an Advance Directive. Does the patient wish to make any changes or revoke their current Advance Directive? No changes requested at this time. /bebo LUCIA MEDICAL SUPPORT ASSISTAT Signed: 01/24/2024 14:31 MELISSA LUCIA [facility]
--- OUTSIDE RECORDS SUMMARY | 2024-11-14 13:25 | XMS_ITS | Encounter Summary ---
Author Name [facility] [place] Organization [facility] [place] [facility] [place] Address [address] [place] [address] Care Team Providers Care Lan Engineer Name Role Phone COLLEEN SMALL Primary Care Provider Unavailabl e Selected Encounter This section includes the information on record at [place] for the Encounter. Date/Time Encounter Type Encounter Description Reason Provider Source Aug 17, 2024 08:15 AM HEARING AID REPAIR/MODIFYIN G AUDIOLOGY ICD-10-CM H90.3 Sensorineural hearing loss, bilateral JOSE DE JESUS MENDEZ ET Demetria IHE Encounter Template Text not used by [place] Assessments - Encounter Diagnoses This section includes the primary and secondary diagnoses documented for the Encounter. Date/Time Primary/Secondary Diagnosis Diagnosis Name Provider Source Aug 17, 2024 09:33 AM PRIMARY Sensorineural hearing loss, bilateral ALBA PATTERSON [facility] Aug 17, 2024 09:33 AM SECONDARY Encounter for fitting and adjustment of hearing aid ALBA PATTERSON [facility] Aug 17, 2024 09:33 AM SECONDARY Tinnitus, bilateral ALBA PATTERSON [facility] Plan of Treatment: Future Appointments (+ 6 months) and Future Tests (+/- 45 days) The Plan of Treatment section includes future care activities for the patient from all [place] treatmentfacilities. This section includes future appointments and future orders which are active, pending or scheduled. Future Appointments This section includes appointments that were scheduled to occur 6 months from the date of the Encounter, up to a maximum of 20 appointments. The data comes from all [facility]. Appointment Date/Time Appointment Type Appointme nt Facility Name Nov 02, 2024 12:30 PM AMBULATORY - MEDICINE [facility] Nov 02, 2024 01:00 PM AMBULATORY - MEDICINE [facility] Nov 02, 2024 01:30 PM AMBULATORY - MEDICINE [facility] Social History: Smoking Status (Most current) and Tobacco Use (All prior to encounter date) This section includes the most current, and the historical, smoking and tobacco- related health factors from the [facility] where the Encounter took place. Current Smoking Status This section includes the most current smoking, or tobacco-related health factor, from the [place] facility where the Encounter took place. Date/Time Current Smoking Status Comment Facil ity Jan 24, 2024 02:45 PM [place]-TOBACCO NEVER USED [facility] Tobacco Use History This section includes a history of the smoking, or tobacco-related health factors, that were collected on or before the date of the Encounter. The data comes from the [facility] where the Encounter took place. Date/Time Smoking Status/Tobacco Use Comment F acility March 17, 2023 08:15 AM VA-TOBACCO NEVER USED [facility] Mar 09, 2022 08:15 AM VA-TOBACCO NEVER USED [facility] Mar 10, 2021 08:00 AM VA-TOBACCO NEVER USED [facility] May 24, 2020 08:00 AM LIFETIME NON-SMOKER [facility] Mar 10, 2019 07:57 AM VA-TOBACCO NEVER USED [facility] Encounter Notes: All associated encounter notes This section contains the clinical notes associated to the Encounter. Date/Time Encounter Note(s) Provider Source Aug 23, 2024 09:55 AM ADDENDUM: LOCAL TITLE: Addendum STANDARD TITLE: ADDENDUM DATE OF NOTE: AUG 23, 2024@09:55:19 ENTRY DATE: AUG 23, 2024@09:55:20 AUTHOR: BELKIS REED EXP COSIGNER: URGENCY: STATUS: COMPLETED I was not in clinic on this day (August 17) and am unable to sign this note as the supervising Head Mechanic. Dr. Mendez alerted. /piper/ Ruchi Hayden Clinical Head Mechanic Signed: 08/23/2024 09:55 Receipt Acknowledged By: 09/15/2024 14:45 /piper/ Ruchi Lazar Chief, Audiology --- Original Document --- 08/17/24 AUDIOLOGY CLINIC NOTE: DIAGNOSIS Encounter for fitting and Adjustment of [...] LOCKS AIDS WORKING PROPERLY POST CLEANING ' [place] was counseled using a curriculum on the cleaning,care and use of hearing aids. Plan: Vet will contact call center as needed for follow up Patient is in agreement with this plan. Commutator Inspector: /piper/ RADHA PATTERSON AUDIO TECH Signed: 08/17/2024 09:33 /piper/ Ruchi Hayden Clinical Head Mechanic Cosigned: 08/23/2024 09:55 BELKIS REED [facility] Aug 17, 2024 09:27 AM AUDIOLOGY NOTE: [...] Hearing Aid Service Location of Visit(Room Number):2S-109 [place] was seen for Hearing Aid Service/Repair: 30 minute Appointment Otoscopy: Free of Excessive Cerumen, Normal anatomy bilaterally DIAGNOSIS History: Patient seen for a hearing aid service/hearing aid check Make:CHRISTIAN Model: [id number]-R JEFFY Serial Number:R/L: Dome/Mold: SMALL VENTED The following Hearing aid problem(s) were presented Right Hearing Aid:CLEAN AND CHECK, RECEIVERS PLUGGED UP Left Hearing Aid:SAME ABOVE Action: Hearing Aids were cleaned and checked. A listening check revealed good sound quality: REPLACED BOTH 5.0 2M RECEIVERS, DOMES AND SPORT LOCKS AIDS WORKING PROPERLY POST CLEANING ' was counseled using a curriculum on the cleaning,care and use of hearing aids. Plan: Vet will contact call center as needed for follow up Patient is in agreement with this plan. Commutator Inspector: /piper/ RADHA PATTERSON AUDIO TECH Signed: 08/17/2024 09:33 /es/ Ruchi Hayden Clinical Head Mechanic Cosigned: 08/23/2024 09:55 08/23/2024 ADDENDUM STATUS: COMPLETED I was not in clinic on this day (August 17) and am unable to sign this note as the supervising Head Mechanic. Dr. Mendez alerted. /piper/ Ruchi Hayden Clinical Head Mechanic Signed: 08/23/2024 09:55 Receipt Acknowledged By: * AWAITING SIGNATURE * NAZ MENDEZ MICHAEL C [facility]
--- OUTSIDE RECORDS SUMMARY | 2024-11-14 13:25 | XMS_ITS | Encounter Summary ---
Author Name [facility] [place] Organization [facility] [place] Address [address] [place] [address] Care Team Providers Care Dry Pan Operator Name Role Phone COLLEEN SMALL Primary Care Provider Unavailabl e Selected Encounter This section includes the information on record at [place] for the Encounter. Date/Time Encounter Type Encounter Description Reason Provider Source Nov 02, 2024 01:30 PM OFFICE O/P EST MOD 30 MIN GENERAL INTERNAL MEDICINE ICD-10-CM Z01.818 Encounter for other preprocedural examination RICHELLE REDD Dayne Encounter Template Text not used by [place] Assessments - Encounter Diagnoses This section includes the primary and secondary diagnoses documented for the Encounter. Date/Time Primary/Secondary Diagnosis Diagnosis Name Provider Source Nov 02, 2024 02:06 PM PRIMARY Encounter for other preprocedural examination RICHELLE REDD [facility] Nov 02, 2024 02:06 PM SECONDARY Allergic rhinitis, unspecified RICHELLE REDD [facility] Nov 02, 2024 02:06 PM SECONDARY Chronic rhinitis RICHELLE REDD [facility] Nov 02, 2024 02:06 PM SECONDARY Gastro-esophageal reflux disease without esophagitis RICHELLE REDD [facility] Nov 02, 2024 02:06 PM SECONDARY Obstructive sleep apnea (adult) (pediatric) RICHELLE REDD [facility] Lab Results: +/- 30 days of the encounter This section includes the Chemistry and Hematology Lab Results on record with [place] for the patient. Radiology Reports and Pathology Reports are provided separately, in subsequent sections. Lab Results This section contains the Chemistry/Hematology Results that were resulted 30 days before or 30 daysafter the date of the Encounter. Date/Time Source Result Type Result - Unit Interpretation Reference Range Comment Nov 02, 2024 12:08 PM [facility] CBC Specimen Type: BLOOD No comment entered. Ordering Provider: LIGIA GARCIA Report Released Date/Time: Sep 29, 2024 12:36 PM Reporting Lab: [facility] [id number] Performing Lab: [facility] [id number] WBC 7.3 4.0-11.0 RBC 5.53 4.60-6.20 HGB 16.0 g/dL 13.5-17.9 HCT 49.6 41.0-54.0 MCV 89.7 fL 80.0-100.0 MCH 28.9 pg 27.0-33.0 MCHC 32.3 g/dL 32.0-37.5 PLT 217 150-400 MPV 10.2 fL 9.1-13.0 RDW 13.1 11.5-14.5 Vital Signs: All taken on the encounter date This section contains inpatient and outpatient Vital Signs collected on the date of the Encounter. Date/Time Temperature Pulse Blood Pressure Respiratory Rate SP02 Pain Height Weight Body Mass Index Source Nov 02, 2024 01:33 PM 98 70 130/86 16 97 69.75 229.7 [facility] Social History: Smoking Status (Most [...] 24, 2024 02:45 PM VA-TOBACCO NEVER USED [facility] Tobacco Use History This section includes a history of the smoking, or tobacco-related health factors, that were collected on or before the date of the Encounter. The data comes from the [place] facility where the Encounter took place. Date/Time Smoking Status/Tobacco Use Comment F acility March 17, 2023 08:15 AM VA-TOBACCO NEVER USED [facility] Mar 09, 2022 08:15 AM VA-TOBACCO NEVER USED [facility] Mar 10, 2021 08:00 AM VA-TOBACCO NEVER USED [facility] May 24, 2020 08:00 AM LIFETIME NON-SMOKER [facility] Mar 10, 2019 07:57 AM VA-TOBACCO NEVER USED [facility] Encounter Notes: All associated encounter notes This section contains the clinical notes associated to the Encounter. Date/Time Encounter Note(s) Provider Source Nov 02, 2024 12:49 PM PRE OPERATIVE E & M NOTE: LOCAL TITLE: MEDICINE PRE-OP EVALUATION NOTE STANDARD TITLE: PRE OPERATIVE E & M NOTE DATE OF NOTE: NOV 02, 2024@12:49 ENTRY DATE: NOV 02, 2024@12:49:42 AUTHOR: RICHELLE REDD COSIGNER: URGENCY: STATUS: COMPLETED PRE-OP MEDICAL EVALUATION Name: RADHA ETIENNE Age: 64 Surgeon's Name: Dr. Osuna Type of Surgery: Septoplasty, turbinate reduction Place of Surgery: [facility] Date of Scheduled Surgery: 11/24/2024 Allergy: MORPHINE SULFATE INJ -urticaria->2009. Had traumatic hand injury, no associated laryngospasm, angioedema, hypotension. C-MEDS: DRUG RECONCILIATION ======== Active Medications, as listed below, has been reviewed & Discussed with Pt and discrepancies has been reconciled & resolved today. ======= 1) ACETAMINOPHEN 500MG TAB TAKE ONE TO TWO TAB Q6H 2) CETIRIZINE HCL 10MG TAB TAKE ONE TAB DAILY 3) DICLOFENAC NA 1% TOP GEL APPLY 2 GRAMS TOPICALLY QID PRN 4) FLUTICASONE PROP 50MCG 120D NASAL INHL SPRAY 2 SPRAYS DAILY 5) MECLIZINE HCL 25MG CHEW TAB CHEW ONE TAB TID PRN 6) * MULTIVITAMIN CAP/TAB TAKE 1 TAB DAILY 7) OMEPRAZOLE 20MG EC CAP TAKE ONE CAP DAILY 8) PRAVASTATIN NA 40MG TAB TAKE ONE TAB QHS 9) SILDENAFIL CITRATE 100MG TAB TAKE ONE-HALF TAB PRN ======= 1) Non-VA ACETAMINOPHEN 500MG TAB 1000MG QHS Med Hx: GERD -Louie's esophagus. No symptoms on omeprazole. GILLIAN -use CPAP Prediabetes Obesity Dyslipidemia Dermatitis Low Back Pain Osteoarthritis Allergic Rhinitis Exposure to burn pit/jet fuel Restless Legs Iron Deficiency ED Amputation of index finger Other Psoriasis Angle of Jaw Closed fx SURGERIES 2021 Right TKA left hand surgery 2009 1977 jaw surgery appendectomy Vasectomy ROS: Relevant Details In Active Med. List Above ====== Functional Status: Best in last 6 months: Walks ~2miles/day when weather is nice. Exercise bike 2-3d/wk. Hunts deer, climbs 2 flights of stairs. No CV symptoms. WC/Bed:[No] METs:[4] Frail[No] Falls:[No] CVD : UT:[No] CABG:[No] PTCA/Stent:[No] Angina/Unstable:[No] CHF:[No] WOO:[No] Orthopnea/PND:[No] :[No] Sxs:[No] A-F/SVT/VT:[No] DCCV/Ablation:[No] AICD Or PM:[No] ABx Prophylaxis Need: SBE:[No] Prosthetic Devices:[No] PAD:[No] CVD:[No] DVT/PE:[No] unProvoked:[No] HEM: Bleeding Diathesis:[No] ASA/PLAVIX/NSAID:[No] AC:[No] GI: [id number]:[No] Agree to blood products:[Yes] Hepatitis:[No] Cirrhosis/Stage:[No] PULM: COPD/Asthma:[No] Home O2:[No] Oral Steroid<12ths:[No] GILLIAN:[Yes] C-PAP Compliant:[No] GILLIAN Suspect STOP-BANG:[ ] Aspiration Risk: Dysphagia[no] Hiatal Hernia[no] GERD[Yes] RENAL: CKD/Stage:[No] ANGELITA:[No] HD-Schedule:[No] BPH/DÍAZ:[No] ENDOC: Adreno-Suppression:[No] DM[No] Obesity:34.5:[Yes] NEURO: Seizure:[No] Neuropathy:[No] Myopathy:[No] GADGET: Brain/Spinal/Vegal stimulators, Pumps, Prosthesis: [TKA] ANESTH: FHx/Personal Complic.:[No] Post-Op Delirium/Confusion:[No] CHEM.DEP: ETOH:[1/wk] Smoking:[No] Illicit Subs:[No] Naltrexone (PO/IM):[No] Buprenorphine:[No] Opioid:[No] BRAIN HEALTH: Dementia/Delirium:[No] PTSD:[No] TBI:[No] CAPRINI: VTE RISK ASSESSMENT SCORE -- VTE RISK [%] SCORE -- VTE RISK [%] (0-2) -- Low -- 0.5-1.5% (5-8) -- High -- 6.0% (3-4) -- Moderate-- 3.0% (> 8) -- Highest -- 6-18% Age: 64 (41-60= 1) (61-74= 2) (>75= 3) (2) BMI:34.5 BMI>25= 1 (1) Surgery: Minor=1, Major=2 (1) Mobility: Central-line, Bed-Rest+/- Cast<72H=1 Confined +/- Cast>72H=2 (0) Women: Estrogen/// Spontaneous /Still =1 (0) PMHx:UT/CHF/IBD/Malignancy/(CO PD/Asthma/Abnl PFT), LE edema/Varicosity=1(0) Recent Med Hx (< month): Sepsis, Pneumonia/Serious lung disease = 1 (0) CVA, Elective TKA/LOGAN/Spinal injury/Bone Fx(Hip/pelvis/Leg) =5 (0) VTE: VTE Hx, FHx of VTE, Congenital or Acquired thrombophilia =3 (0) TOTAL SCORE ==>[4] EXAM: General: Measurement DT TEMP PULSE RESP BP HT WT F(C) IN(CM) LB(KG)[BMI] ---- ----- ---- -- ------ 11/02/2024 13:33 98.0(36.7) 70 16 130/86 69.8(177) 230(104.2)[33*] Measurement DT CVP POx CG CMH20(MMHG) (L/MIN)(%) IN(CM) ------ 11/02/2024 13:33 97 Mental Status: Normal: [Yes] Neck ROM: Normal:[Yes] Limited:[No] Trachea Midline:[Yes] Mouth Opening(Fingers): 3 Mallampati: 2 Teeth: WNL:[fair repair] Lungs: CTA Heart: Rhythm: RRR. No Murmur. Abdomen: soft, nontender, no masses. Extremity: LE edema: No LABS: SODIUM 142 (03/15/24) POTASSIUM 4.4 (03/15/24) UREA NITROGEN 20 (03/15/24) CREATININE 1.1 (03/15/24) GLUCOSE 94 (03/15/24) WBC 7.3 (11/02/24) HGB 16.0 (11/02/24) PLT 217 (11/02/24) INR____ ALBUMIN____ 03/15/2024 HEMOGLOBIN A1C 5.6 % EKG: [11/02/24] Rate: 65 Rhythm[nsr] A.Fib.[no] UT[no] PVCs[no] CXR:Impression for CHEST 2 VIEWS PA AND LAT, 07/25/20 PA and lateral views of the chest were obtained. The cardiomediastinal silhouette is within normal limits. No focal airspace opacity, pleural effusion, or pneumothorax. Degenerative changes of the right greater than left acromioclavicular joints and mild degenerative changes of the thoracic spine. (x)Patient was informed of available lab, imaging, and other study results noted above, associated with today's visit. RISK ASSESSMENT: RADHA ETIENNE is a 64 Y-O, Vet, With Med Hx as outlined above. Has no CV symptoms and has been regularly physically active as noted above. Labs, EKG, and Exam are as outlined. Risk for the planned surgery relate to: GERD, GILLIAN RCRI SCORE/RISK: 0 LOW RISK FOR THE PLANNED SURGERY FOR CARDIO-PULMONARY COMPLICATION RECOMMENDATIONS: CARDIAC: No known disease Hold supplements 7 days Pre-OP Monitor vitals closely glynn-op NTG SL 0.4 mg PRN Angina PULMONARY: GILLIAN. GERD. Non Smoker. At risk for hypoxia, aspiration Albuterol nebs PRN glynn-OP Incentive spirometry -Encourage use post-OP Keep head of bed elevated glynn-OP when possible C-PAP use prn Glynn-OP DVT PROPHYLAXIS: No Hx of DVT or Hypercoagulable state. CAPRINI SCORE:[4] DVT/PE RISK:[mod] DVT PROPHYLAXIS RECOMMENDATION: Per surgical service ANESTHESIA: Oral Opening Fingers: 3 Mallampati: 2 ALLERGY: Note allergies as listed above Point of Contact, Phone and Fax # to Send Pre-op Exam Results: Madeleine-nurse /piper/ RICHELLE REDD APRN, JESUS HAIR STYLIST, SLOT ATTENDANT Signed: 11/02/2024 14:07 RICHELLE REDD [facility]
--- OUTSIDE RECORDS SUMMARY | 2024-11-14 13:25 | XMS_ITS | Encounter Summary ---
Author Name [facility] [place] Organization [facility] [place] [facility] [place] Address [address] [place] [address] Care Team Providers Care Envelope Stuffer Name Role Phone COLLEEN SMALL Primary Care Provider Unavailabl e Selected Encounter This section includes the information on record at [place] for the Encounter. Date/Time Encounter Type Encounter Description Reason Provider Source Oct 18, 2024 10:40 AM Outpatient Encounter SLEEP MEDICINE KENDALL CALHOUN Dayne Encounter Template Text not used by [place] Plan of Treatment: Future Appointments (+ 6 months) and Future Tests (+/- 45 days) The Plan of Treatment section includes future care activities for the patient from all [place] [facility] This section includes future appointments and future orders which are active, pending or scheduled. Future Appointments This section includes appointments that were scheduled to occur 6 months from the date of the Encounter, up to a maximum of 20 appointments. The data comes from all [place] treatment facilities. Appointment Date/Time Appointment Type Appointme nt Facility Name Nov 02, 2024 12:30 PM AMBULATORY - MEDICINE [facility] Nov 02, 2024 01:00 PM AMBULATORY - MEDICINE [facility] Nov 02, 2024 01:30 PM AMBULATORY MEDICINE [facility] Lab Results: +/- 30 days of the encounter This section includes the Chemistry and Hematology Lab Results on record with [place] for the patient. Radiology Reports and Pathology Reports are provided separately, in subsequent sections. Lab Results This section contains the Chemistry/Hematology Results that were resulted 30 days before or 30 daysafter the date of the Encounter. Date/Time Source Result Type Result - Unit Interpretation Reference Range Comment Nov 02, 2024 12:08 PM [facility] CBC Specimen Type: BLOOD No comment entered. Ordering Provider: LIGIA GARCIA Report Released Date/Time: Sep 29, 2024 12:36 PM Reporting Lab: [facility] [id number] Performing Lab: [facility] [id number] WBC 7.3 4.0-11.0 RBC 5.53 4.60-6.20 HGB 16.0 g/dL 13.5-17.9 HCT 49.6 41.0-54.0 MCV 89.7 fL 80.0-100.0 MCH 28.9 pg 27.0-33.0 MCHC 32.3 g/dL 32.0-37.5 PLT 217 150-400 MPV 10.2 fL 9.1-13.0 RDW 13.1 11.5-14.5 Social History: Smoking Status (Most current) and Tobacco Use (All prior to encounter date) This section includes the most current, and the historical, smoking and tobacco- related health factors from the [place] facility where the Encounter took place. Current Smoking Status This section includes the most current smoking, or tobacco-related health factor, from the [place] facility where the Encounter took place. Date/Time Current Smoking Status Comment Jonny cruz Jan 24, 2024 02:45 PM VA-TOBACCO NEVER USED [facility] Tobacco Use History This section includes a history of the smoking, or tobacco-related health factors, that were collected on or before the date of the Encounter. The data comes from the [place] facility where the Encounter took place. Date/Time Smoking Status/Tobacco Use Comment F acility March 17, 2023 08:15 AM VA-TOBACCO NEVER USED [facility] Mar 09, 2022 08:15 AM VA-TOBACCO NEVER USED [facility] Mar 10, 2021 08:00 AM VA-TOBACCO NEVER USED [facility] May 24, 2020 08:00 AM LIFETIME NON-SMOKER [facility] Mar 10, 2019 07:57 AM [place]-TO[place]AC[place] NEVER USED [facility] Encounter Notes: All associated encounter notes This section contains the clinical notes associated to the Encounter. Date/Time Encounter Note(s) Provider Source Oct 18, 2024 10:40 AM SLEEP MEDICINE SEC URE MESSAGING: LOCAL TITLE: SLEEP SECURE MESSAGING STANDARD TITLE: SLEEP MEDICINE SECURE MESSAGING DATE OF NOTE: OCT 18, 2024@10:40 ENTRY DATE: OCT 18, 2024@09:40:45 AUTHOR: THAD CALHOUN EXP COSIGNER: URGENCY: STATUS: COMPLETED ------Original Message ------- Sent: 10/18/2024 07:20 AM ET From: RADHA ETIENNE To: [facility]-Sleep--C/APAP Clinic @ Subject: Medication:CPAP Mask I am going to have Nasel surgery and will not be able to use my Nasel pillow for several weeks. My docter recommends thay I get a full face mask to use. How do I go about getting one. ------Original Message ------- Sent: 10/18/2024 10:40 AM ET From: THAD CALHOUN To: RADHA ETIENNE Subject: Medication:CPAP Mask Good morning, I will get a mask ordered for you. It will be a fit pack so you can select the appropriate size. Thad Kang Registered Respiratory Therapist /es/ THAD CALHOUN, CUSTOMER OPERATIONS REPRESENTATIVE CUSTOMER OPERATIONS REPRESENTATIVE Signed: 10/18/2024 09:40 THAD CALHOUN [facility]
--- OUTSIDE RECORDS SUMMARY | 2024-11-14 13:25 | XMS_ITS | Encounter Summary ---
Author Name [facility] [place] [facility] [place] Address [address] [place] [address] Care Team Providers Care Paving Crew Foreman Name Role Phone COLLEEN SMALL Primary Care Provider Unavailabl e Selected Encounter This section includes the information on record at [place] for the Encounter. Date/Time Encounter Type Encounter Description Reason Provider Source Aug 03, 2024 02:00 PM DENTAL PANORAMIC IMAGE DENTAL ICD-10-CM Z01.20 Encounter for dental exam and cleaning w/o abnormal findings NEETU VELAZQUEZ [facility] Encounter Template Text not used by [place] Assessments - Encounter Diagnoses This section includes the primary and secondary diagnoses documented for the Encounter. Date/Time Primary/Secondary Diagnosis Diagnosis Name Provider Source Aug 03, 2024 02:57 PM PRIMARY Encounter for dental exam and cleaning w/o abnormal findings NEETU VELAZQUEZ [facility] Plan of Treatment: Future Appointments (+ 6 months) and Future Tests (+/- 45 days) The Plan of Treatment section includes future care activities for the patient from all [place] [facility]. This section includes future appointments and future orders which are active, pending or scheduled. Future Appointments This section includes appointments that were scheduled to occur 6 months from the date of the Encounter, up to a maximum of 20 appointments. The data comes from all [place] treatment facilities. Appointment Date/Time Appointment Type Appointme nt Facility Name Aug 17, 2024 08:15 AM AMBULATORY - SURGERY [facility] Aug 17, 2024 12:00 PM AMBULATORY - NONE [facility] Nov 02, 2024 12:30 PM [facility] Nov 02, 2024 01:00 PM [facility] Nov 02, 2024 01:30 PM [facility] MEDICINE [facility] Vital Signs: All taken on the encounter date This section contains inpatient and outpatient Vital Signs collected on the date of the Encounter. Date/Time Temperature Pulse Blood Pressure Respiratory Rate SP02 Pain Height Weight Body Mass Index Source Aug 03, 2024 02:10 PM 98.5 64 153/92 [facility] Social History: Smoking Status (Most current) and Tobacco Use (All prior to encounter date) This section includes the most current, and the historical, smoking and tobacco- related health factors from the [place] facility where the Encounter took place. Current Smoking Status This section includes the most current smoking, or tobacco-related health factor, from the [place] facility where the Encounter took place. Date/Time Current Smoking Status Comment Jonny myaerrachael Jan 24, 2024 02:45 PM VA-TOBACCO NEVER USED [facility] Tobacco Use History This section includes a history of the smoking, or tobacco-related health factors, that were collected on or before the date of the Encounter. The data comes from the [place] facility where the Encounter took place. Date/Time Smoking Status/Tobacco Use Comment Wes scott March 17, 2023 08:15 AM VA-TOBACCO NEVER USED [facility] Mar 09, 2022 08:15 AM VA-TOBACCO NEVER USED [facility] Mar 10, 2021 08:00 AM VA-TOBACCO NEVER USED [facility] May 24, 2020 08:00 AM LIFETIME NON-SMOKER [facility] Mar 10, 2019 07:57 AM VA-TOBACCO NEVER USED [facility] Encounter Notes: All associated encounter notes This section contains the clinical notes associated to the Encounter. Date/Time Encounter Note(s) Provider Source Aug 03, 2024 02:57 PM DENTISTRY CONSULT: LOCAL TITLE: DENTAL IMAGING CONSULT STANDARD TITLE: DENTISTRY CONSULT DATE OF NOTE: AUG 03, 2024@14:57 ENTRY DATE: AUG 03, 2024@14:57:59 AUTHOR: WYATT VELAZQUEZ EXP COSIGNER: URGENCY: STATUS: COMPLETED Dental images were exposed, interpreted, and results were discussed with patient. /piper/ WYATT VELAZQUEZ DDS Staff Dentist Signed: 08/03/2024 14:58 NU VELAZQUEZ [facility] Aug 03, 2024 02:57 PM DENTISTRY ATTENDING NOTE: LOCAL TITLE: Dental Clinic Examination Note STANDARD TITLE: DENTISTRY ATTENDING NOTE DATE OF NOTE: AUG 03, 2024@14:57 ENTRY DATE: AUG 03, 2024@14:57:47 AUTHOR: WYATT VELAZQUEZ EXP COSIGNER: URGENCY: STATUS: COMPLETED Patient Name: RADHA ETIENNE, : 1960, Age: 63 Visit: S: Aug 03, 2024@14:00 [facility] DENTAL NEW PATIENT 2UD. Primary PCE Diagnosis: Z01.20 (Encounter for dental examination and cleaning without abnormal findings). Dental Category: 15-OPC, Class IV. Treatment Status: Active. Completed Care: (D0150) COMPREHENSVE ORAL EVALUATION. DX: Z01.20 Encounter for Dental Examination and Cleaning without Abnormal Findings (D0210) INTRAORAL FULL IMAGE SERIES. DX: Z01.20 Encounter for Dental Examination and Cleaning without Abnormal Findings (D0330) DENTAL PANORAMIC IMAGE. DX: Z01.20 Encounter for Dental Examination and Cleaning without Abnormal Findings Presentation/Chief Complaint: Patient presents for comprehensive oral evaluation Patient has no dental complaints New Dental Class IV recent 100% presents to initial comprehensive dental exam states that no teeth are bothering him, he primarily wanted to get established since he had some llarge bridges done while in the . Patient states he has been going to a private dental office routinely every 6 months, was just seen in April and is scheduled again in [facility] and he has private dental insurance and plans no staying there for his hygiene visits. sterilization verified by Dr. Velazquez and MING Prado timein 1410 timeout 1500 negative COVID screen Vital Signs: Dental Pain (0-10): 0 General Pain (0-10): 0 Temperature ( F): 98.5 08/03/2024 14:10 Blood Pressure (mmHg): 153/92 08/03/2024 14:10 Pulse (BPM): 64 08/03/2024 14:10 Past Medical History and Medications: Patient is new to clinic Social History: Patient reports the following habits: Alcohol present use 1 drinks per month for 10 year(s) Intraoral and Extraoral Screening Exam Findings: 08/03/2024 lower bi lateral chandu Radiographic Findings: Radiographic findings consistent with charted entries No periapical radiolucencies noted. note patient has wire in mandible anterior due to previous trauma fractured jaw and lost anterior teeth Tooth and Patient Notes: Patient Note -- MAG - 08/03/2024 Resin bonded lower bridge Oral Examination: Oral Health Assessment Findings: Plaque Index: 1 - Slight Xerostomia: 1 - Slight Caries Risk: 1 - Low -- MORGAN Oral Hygiene: 1 - Good Dental Examination: Missing Teeth: 1, 7, 8, 9, 10, 16, 17, 23, 24, 25, 32. Extracted Bridge: . Existing Dental Restorations: Restored: 2(MO) Amalgam, 3(MOD) Resin, 15(MO) Resin, 18(MO) Resin, 19(DO) Resin, 29(DO) Amalgam, 30(DO) Amalgam, 31(MO) Amalgam. Bridge Abutments: 5 PFM-6 PFM-11 PFM-12 PFM; 22 Misc-26 Misc-27 Misc. Pontics: 7 PFM, 8 PFM, 9 PFM, 10 PFM, 23 Misc, 24 Misc, 25 Misc. Dentition exhibits no apparent evidence of dental pathology at this visit No Significant Tooth Mobility Noted Periodontal Screening/Recording (PSR): 2-1-2 - - - 1-1-1 Periodontal Assessment: Chronic Slight Localized Periodontitis note slight erythem and plaque, between #5-6 fpd abutted together, patient states he uses superfloss, very minimal plaque or calculus noted Periodontal Charting (This is textual display of periodontal findings. Please see DRM Plus for perio charting graphic.) - - - - - - - - - - - - - - - - - - - - - - - - - - - - - - - - - - - TOOTH 1 2 3 4 5 6 7 8 9 10 11 12 13 14 15 16 - - - -~- -~- -~- -~- -~- -~- -~- -~- -~- -~- -~- -~- -~- -~- -~- -~- F PD 332 332 323 323 223 333 222 323 333 333 L PD 334 433 333 334 433 333 333 222 222 222 - - - -~- -~- -~- -~- -~- -~- -~- -~- -~- -~- -~- -~- -~- -~- -~- -~- TOOTH 32 31 30 29 28 27 26 25 24 23 22 21 20 19 18 17 - - - -~- -~- -~- -~- -~- -~- -~- -~- -~- -~- -~- -~- -~- -~- -~- -~- F PD 323 333 323 223 322 322 323 222 223 222 232 L PD 333 233 322 333 323 323 223 322 323 233 333 - - - - - - - - - - - - - - - - - - - - - - - - - - - - - - - - - - - WOODWARD: B=Bleeding b=Delayed Bleeding S=Suppuration *=Pocket/MGJ > 9 +=FGM coronal to CEJ (Periodontal chart may be a composite of entries from different dates) Parafunctional Habits: History: Patient reports no known parafunctional habits. Clinical Findings: No evidence of parafunctional habits. TMJ Findings: History: Patient reports symptoms associated with TMJ's: Popping/Clicking Clinical Findings: Occlusal Findings: Normal Mandibular relationship Class I Left first molar relationship Class I Right first molar relationship (3)mm Overbite (3)mm Overjet Assessment/Plan: no caries or defect noted, patient elects to stay at his private dental office for hygiene visits and will return to [place] for annual exam or if any treatment required No urgent dental needs or acute dental infections noted on examination. No contraindications for planned procedure(s). No treatment required at this time Reviewed risks/benefits/alternatives associated with the proposed treatment plan. Patient agrees to treatment plan as discussed. Apprised patient of findings, treatment recommendations, and treatment options. Patient elected to continue with treatment as discussed above.Discussed treatment risks, benefits, consequences of treatment, and consequences of no treatment. Patient verbalized understanding of our discussion and electes to continue with treatment as discussed. Disposition: Next visit: recall - - - - - - - - - - - - - - - - - - - - - - - - - - - - - - /piper/ WYATT VELAZQUEZ DDS Staff Dentist Signed: 08/03/2024 14:57 NU VELAZQUEZ [facility]
--- OUTSIDE RECORDS SUMMARY | 2024-11-14 13:25 | XMS_ITS | Encounter Summary ---
Author Name [facility] [place] [facility] [place] Organization [facility] [place] Address [address] [place] [address] Care Team Providers Care Cytometry Technologist Name Role Phone COLLEEN SMALL Primary Care Provider Unavailabl e Selected Encounter This section includes the information on record at [place] for the Encounter. Date/Time Encounter Type Encounter Description Reason Provider Source Nov 02, 2024 01:00 PM ELECTROCARDIOGRAM REPORT EKG ICD-10-CM Z13.6 Encounter for screening for cardiovascular disorders RAJESH RIZZO [facility] Encounter Template Text not used by [place] Assessments - Encounter Diagnoses This section includes the primary and secondary diagnoses documented for the Encounter. Date/Time Primary/Secondary Diagnosis Diagnosis Name Provider Source Nov 02, 2024 01:46 PM PRIMARY Encounter for screening for cardiovascular disorders KIMBERLY GALLOWAY [facility] Lab Results: +/- 30 days of the encounter This section includes the Chemistry and Hematology Lab Results on record with [place] for the patient. Radiology Reports and Pathology Reports are provided separately, in subsequent sections. Lab Results This section contains the Chemistry/Hematology Results that were resulted 30 days before or 30 daysafter the date of the Encounter. Date/Time Source Result Type Result - Unit Interpretation Reference Range Comment Nov 02, 2024 12:08 PM [facility] CBC Specimen Type: BLOOD No comment entered. Ordering Provider: LIGIA GARCIA Report Released Date/Time: Sep 29, 2024 12:36 PM Reporting Lab: [facility] [id number] Performing Lab: [facility] [address] WBC 7.3 4.0-11.0 RBC 5.53 4.60-6.20 HGB [...] 70 130/86 16 97 69.75 229.7 33 [facility] Social History: Smoking Status (Most current) and Tobacco Use (All prior to encounter date) This section includes the most current, and the historical, smoking and tobacco- related health factors from the [place] facility where the Encounter took place. Current Smoking Status This section includes the most current smoking, or tobacco-related health factor, from the [place] facility where the Encounter took place. Date/Time Current Smoking Status Comment Jonny cruz Jan 24, 2024 02:45 PM VA-TOBACCO NEVER USED [facility] Tobacco Use History This section includes a history of the smoking, or tobacco-related health factors, that were collected on or before the date of the Encounter. The data comes from the [place] facility where the Encounter took place. Date/Time Smoking Status/Tobacco Use Comment F acility March 17, 2023 08:15 AM VA-TOBACCO NEVER USED [facility] Mar 09, 2022 08:15 AM VA-TOBACCO NEVER USED [facility] Mar 10, 2021 08:00 AM VA-TOBACCO NEVER USED [facility] May 24, 2020 08:00 AM LIFETIME NON-SMOKER [facility] Mar 10, 2019 07:57 AM [place]-TOBACCO NEVER USED [facility]
--- OUTSIDE RECORDS SUMMARY | 2024-11-14 13:25 | XMS_ITS | Encounter Summary ---
Author Name [facility] [place] Organization [place] Address [address] [place] [address] Care Team Providers Care Inserting Press Operator Name Role Phone COLLEEN SMALL Primary Care Provider Unavailabl e Selected Encounter This section includes the information on record at [place] for the Encounter. Date/Time Encounter Type Encounter Description Reason Pro vider Source Oct 23, 2024 12:19 PM Outpatient Encounter COMMUNITY CARE CONSULT IHE Encounter Template Text not used by [place] Plan of Treatment: Future Appointments (+ 6 months) and Future Tests (+/- 45 days) The Plan of Treatment section includes future care activities for the patient from all [place] treatmentfacilities. This section includes future appointments and future orders which are active, pending or scheduled. Future Appointments This section includes appointments that were scheduled to occur 6 months from the date of the Encounter, up to a maximum of 20 appointments. The data comes from all [place] treatment facilities. Appointment Date/Time Appointment Type Appointme nt Facility Name Nov 02, 2024 12:30 PM AMBULATORY - MEDICINE [facility] Nov 02, 2024 01:00 PM AMBULATORY - MEDICINE [facility] Nov 02, 2024 01:30 PM AMBULATORY - MEDICINE [facility] Lab Results: +/- 30 days of the encounter This section includes the Chemistry and Hematology Lab Results on record with [place] for the patient. Radiology Reports and Pathology Reports are provided separately, in subsequent sections. Lab Results This section contains the Chemistry/Hematology Results that were resulted 30 days before or 30 daysafter the date of the Encounter. Date/Time Source Result Type Result - Unit Interpretation Reference Range Comment Nov 02, 2024 12:08 PM [facility] CBC Specimen Type: BLOOD No comment entered. Ordering Provider: LIGIA GARCIA Report Released Date/Time: Sep 29, 2024 12:36 PM Reporting Lab: [facility] [id number] Performing Lab: [facility] [id number] WBC 7.3 4.0-11.0 RBC 5.53 4.60-6.20 HGB [...] and tobacco- related health factors from the [place] facility where the Encounter took place. Current Smoking Status This section includes the most current smoking, or tobacco-related health factor, from the [place] facility where the Encounter took place. Date/Time Current Smoking Status Comment Jonny cruz Jan 24, 2024 02:45 PM VA-TOBACCO NEVER USED [facility] Tobacco Use History This section includes a history of the smoking, or tobacco-related health factors, that were collected on or before the date of the Encounter. The data comes from the [place] facility where the Encounter took place. Date/Time Smoking Status/Tobacco Use Comment F acility March 17, 2023 08:15 AM VA-TOBACCO NEVER USED [facility] Mar 09, 2022 08:15 AM VA-TOBACCO NEVER USED [facility] Mar 10, 2021 08:00 AM VA-TOBACCO NEVER USED [facility] May 24, 2020 08:00 AM LIFETIME NON-SMOKER [facility] Mar 10, 2019 07:57 AM VA-TOBACCO NEVER USED [facility] Encounter Notes: All associated encounter notes This section contains the clinical notes associated to the Encounter. Date/Time Encounter Note(s) Provider Source Oct 23, 2024 12:19 PM NONVA NOTE: LOCAL TITLE: COMMUNITY CARE-CARE COORDINATION PLAN NOTE STANDARD TITLE: NONVA NOTE DATE OF NOTE: OCT 23, 2024@12:19 ENTRY DATE: OCT 23, 2024@12:19:43 AUTHOR: MARCUS REDD COSIGNER: URGENCY: STATUS: COMPLETED COMMUNITY CARE-CARE COORDINATION PLAN NOTE Has ADDENDA Danni Nielson called [facility] call line from [facility], asking whether certain services are covered under the 's ENT referral. The CPT codes are: 97893 88861 2 units, resection 59450 2 units 83890 2 units needs a septoplasty Can you please check these and call Danni back? I re-sent the referral to the fax number below, as she requested. [facility]: [id number] Auth#: [id number] Provider: [address] [address] Fx: [phone] Please contact: Danni Naga (there are two Danni's) [phone] Alerting CC RN: Huey Kidd /piper/ MARCUS REDD ADVANCED MSA Signed: 10/23/2024 12:20 Receipt Acknowledged By: 10/24/2024 11:04 /piper/ HUEY KIDD RN Community Legal Records Clerk 10/24/2024 ADDENDUM STATUS: COMPLETED Call to Danni at number specified. Danni unavailable. Mother Helper left verbal message with Марина in vendor's authorization department, letting her know that consult valid until 02/13/2025, and that services that are Medicare and/or FDA approved for the chief complaint/dx on the consult and ordered by that service line should be covered until the consult expires. Mother Helper let Марина know that new consult would be needed if ENT provider were to refer outside ENT service line. Mother Helper provided number to [employer]'s billing dept for further inquiry as necessary. REGARDING: COM-Additional Comments: Referral Number: [id number] Priority: Routine Referral Issue Date: 2024-06-06 Expiration Date: 2025-02-13 First Appointment Date: 2024-08-17 /piper/ HUEY R KIDD, supervisor [employer]ising Legal Records Clerk Signed: 10/24/2024 11:28 MARCUS REDD [facility]
--- OUTSIDE RECORDS SUMMARY | 2024-11-14 13:25 | XMS_ITS | Encounter Summary ---
Author Name Department of Vetera Affairs ([place]) Organization [place] Address [address] [place] [address] Care Team Providers Care Senior Cognos Developer Name Role Phone COLLEEN SMALL Primary Care Provider Unavailabl e Selected Encounter This section includes the information on record at [place] for the Encounter. Date/Time Encounter Type Encounter Description Reason Pro vider Source Sep 29, 2024 10:54 AM Outpatient Encounter TELEPHONE TRIAGE IHE Encounter Template Text not used by MD Plan of Treatment: Future Appointments (+ 6 months) and Future Tests (+/- 45 days) The Plan of Treatment section includes future care activities for the patient from all [place] treatmentfacilities. This section includes future appointments and future orders which are active, pending or scheduled. Future Appointments This section includes appointments that were scheduled to occur 6 months from the date of the Encounter, up to a maximum of 20 appointments. The data comes from all [place] treatment facilities. Appointment Date/Time Appointment Type Appointme nt Facility Name Nov 02, 2024 12:30 PM AMBULATORY - MEDICINE [facility] Nov 02, 2024 01:00 PM AMBULATORY - MEDICINE [facility] Nov 02, 2024 01:30 PM AMBULATORY - MEDICINE [facility] Social History: Smoking Status (Most current) and Tobacco Use (All prior to encounter date) This section includes the most current, and the historical, smoking and tobacco- related health factors from the [place] facility where the Encounter took place. Current Smoking Status This section includes the most current smoking, or tobacco-related health factor, from the [place] facility where the Encounter took place. Date/Time Current Smoking Status Comment Jonny cruz Jan 24, 2024 02:45 PM VA-TOBACCO NEVER USED [facility] Tobacco Use History This section includes a history of the smoking, or tobacco-related health factors, that were collected on or before the date of the Encounter. The data comes from the [place] facility where the Encounter took place. Date/Time Smoking Status/Tobacco Use Comment F acility March 17, 2023 08:15 AM VA-TOBACCO NEVER USED [facility] Mar 09, 2022 08:15 AM VA-TOBACCO NEVER USED [facility] Mar 10, 2021 08:00 AM VA-TOBACCO NEVER USED [facility] May 24, 2020 08:00 AM LIFETIME NON-SMOKER [facility] Mar 10, 2019 07:57 AM VA-TOBACCO NEVER USED [facility] Encounter Notes: All associated encounter notes This section contains the clinical notes associated to the Encounter. Date/Time Encounter Note(s) Provider Source Sep 29, 2024 11:37 AM ADDENDUM: LOCAL TITLE: Addendum STANDARD TITLE: ADDENDUM DATE OF NOTE: SEP 29, 2024@11:37:52 ENTRY DATE: SEP 29, 2024@11:37:53 AUTHOR: MARCUS TREVINO EXP COSIGNER: URGENCY: STATUS: COMPLETED Alerting pre-op RN to please assist /piper/ MARCUS TREVINO RN RN, BSN Signed: 09/29/2024 11:38 Receipt Acknowledged By: 09/29/2024 12:36 /piper/ LIGIA GARCIA RN REGISTERED NURSE --- Original Document --- 09/29/24 CCC: SCHEDULING ADMINISTRATION: Medicine Pre-Op Type of Contact: Patient called in Surgeon's Name: Dr. Osuna Type of Surgery: Nasal Surgery Place of Surgery: [facility] Date of Scheduled Surgery: 11/24/2024 Date Pre-op Needs to be Completed by: Oct Date of Last H&P Exam (if known): Point of Contact, Phone and Fax # to Send Pre-op Exam Results: didnt have point of contact information at this moment. /bebo SORIANO [facility],3 [facility] Signed: 09/29/2024 11:01 Receipt Acknowledged By: 09/29/2024 11:37 /bebo TREVINO RN RN, BSN 09/29/2024 ADDENDUM STATUS: COMPLETED , Madeleine Prieto-nurse Pt shares he will be out of town Oct 27. /bebo GARCIA RN REGISTERED NURSE Signed: 09/29/2024 12:00 09/29/2024 ADDENDUM STATUS: COMPLETED RTC orders placed for med preop appt; TAMELA to contact patient for scheduling. /bebo GARCIA RN REGISTERED NURSE Signed: 09/29/2024 12:37 MARCUS TREVINO [facility] Sep 29, 2024 10:54 AM ADMINISTRATIVE NOT E: LOCAL TITLE: CCC: SCHEDULING ADMINISTRATION STANDARD TITLE: ADMINISTRATIVE NOTE DATE OF NOTE: SEP 29, 2024@10:54 ENTRY DATE: SEP 29, 2024@10:55:03 AUTHOR: HERMES SORIANO EXP COSIGNER: URGENCY: STATUS: COMPLETED CCC: SCHEDULING ADMINISTRATION Has ADDENDA Medicine Pre-Op Type of Contact: Patient called in Surgeon's Name: Dr. Osuna Type of Surgery: Nasal Surgery Place of Surgery: [facility] Date of Scheduled Surgery: 11/24/2024 Date Pre-op Needs to be Completed by: Oct Date of Last H&P Exam (if known): Point of Contact, Phone and Fax # to Send Pre-op Exam Results: [place] didnt have point of contact information at this moment. /bebo SORIANO [facility] Signed: 09/29/2024 11:01 Receipt Acknowledged By: 09/29/2024 11:37 /bebo TREVINO RN RN, BSN 09/29/2024 ADDENDUM STATUS: COMPLETED Alerting pre-op RN to please assist /piper/ MARCUS TREVINO RN RN, BSN Signed: 09/29/2024 11:38 Receipt Acknowledged By: 09/29/2024 12:36 /piper/ LIGIA GARCIA RN REGISTERED NURSE 09/29/2024 ADDENDUM STATUS: COMPLETED , Madeleine Prieto-nurse Pt shares he will be out of town Oct 27. /piper/ LIGIA GARCIA RN REGISTERED NURSE Signed: 09/29/2024 12:00 09/29/2024 ADDENDUM STATUS: COMPLETED RTC orders placed for med preop appt; [facility]SA to contact patient for scheduling. /piper/ LIGIA GARCIA RN REGISTERED NURSE Signed: 09/29/2024 12:37 HERMES SORIANO [facility]
--- OUTSIDE RECORDS SUMMARY | 2024-11-14 13:25 | XMS_ITS | Encounter Summary ---
Author Name [facility] [place] [facility] [place] Address [address] [place] [address] Care Team Providers Care Journeyman Electrician Pv Installer Name Role Phone COLLEEN SMALL Primary Care Provider Unavailabl e Selected Encounter This section includes the information on record at [place] for the Encounter. Date/Time Encounter Type Encounter Description Reason Pro vider Source Aug 17, 2024 12:00 PM Outpatient Encounter OTOLARYNGOLOGY/ENT IHE Encounter Template Text not used by [place] Plan of Treatment: Future Appointments (+ 6 [...] 02, 2024 12:30 PM AMBULATORY - MEDICINE [facility] Nov 02, 2024 01:00 PM AMBULATORY - MEDICINE [facility] Nov 02, 2024 01:30 PM AMBULATORY - MEDICINE [facility] Social History: Smoking Status (Most current) and Tobacco Use (All prior to encounter date) This section includes the most current, and the historical, smoking and tobacco- related health factors from the [place] facility where the Encounter took place. Current Smoking Status This section includes the most current smoking, or tobacco-related health factor, from the [facility] where the Encounter took place. Date/Time Current Smoking Status Comment Jonny cruz Jan 24, 2024 02:45 PM VA-TOBACCO NEVER USED [facility] Tobacco Use History This section includes a history of the smoking, or tobacco-related health factors, that were collected on or before the date of the Encounter. The data comes from the [place] facility where the Encounter took place. Date/Time Smoking Status/Tobacco Use Comment F acility March 17, 2023 08:15 AM VA-TOBACCO NEVER USED [facility] Mar 09, 2022 08:15 AM VA-TOBACCO NEVER USED [facility] Mar 10, 2021 08:00 AM VA-TOBACCO NEVER USED [facility] May 24, 2020 08:00 AM LIFETIME NON-SMOKER [facility] Mar 10, 2019 07:57 AM VA-TOBACCO NEVER USED [facility] Encounter Notes: All associated encounter notes This section contains the clinical notes associated to the Encounter. Date/Time Encounter Note(s) Provider Source Aug 17, 2024 12:00 PM NONVA CONSULT: LOCAL TITLE: COMMUNITY CARE CONSULT RESULT ENT STANDARD TITLE: NONVA CONSULT DATE OF NOTE: AUG 17, 2024@12:00 ENTRY DATE: AUG 29, 2024@14:15:25 AUTHOR: DONNA GARCIA LPN EXP COSIGNER: URGENCY: STATUS: COMPLETED VistA Imaging - Scanned Document SCANNED DOCUMENT SIGNATURE NOT REQUIRED Electronically Filed: 08/29/2024 by: DONNA GARCIA LPN STAFF NURSE DONNA GARCIA LPN [facility]
--- OUTSIDE RECORDS SUMMARY | 2024-11-14 13:25 | XMS_ITS | Encounter Summary ---
Author Name [facility] [place] [facility] [place] [facility] [place] Address [address] [place] [address] Care Team Providers Care Grips Name Role Phone COLLEEN SMALL Primary Care Provider Unavailabl e Selected Encounter This section includes the information on record at [place] for the Encounter. Date/Time Encounter Type Encounter Description Reason Provider Source Jun 09, 2024 11:30 AM Outpatient Encounter TELEPHONE PRIMARY CARE ICD-10-CM E78.5 Hyperlipidemia, unspecified COLLEEN SMALL [facility] Encounter Template Text not used by [place] Assessments - Encounter Diagnoses This section includes the primary and secondary diagnoses documented for the Encounter. Date/Time Primary/Secondary Diagnosis Diagnosis Name Provider Source Jun 09, 2024 11:30 AM PRIMARY Hyperlipidemia, unspecified COLLEEN SMALL [facility] Jun 09, 2024 11:30 AM SECONDARY Unilateral primary osteoarthritis, right knee COLLEEN SMALL [facility] Plan of Treatment: Future Appointments (+ 6 months) and Future Tests (+/- 45 days) The Plan of Treatment section includes future care activities for the patient from all [place] treatmentfacilities. This section includes future appointments and future orders which are active, pending or scheduled. Future Appointments This section includes appointments that were scheduled to occur 6 months from the date of the Encounter, up to a maximum of 20 appointments. The data comes from all [place] treatment facilities. Appointment Date/Time Appointment Type Appointme nt Facility Name Jul 12, 2024 02:40 PM AMBULATORY - SURGERY AYESHA PALMALIS [facility] Aug 03, 2024 02:00 PM AMBULATORY - SURGERY AYESHA APOLIS [facility] Aug 17, 2024 08:15 AM AMBULATORY - SURGERY AYESHA APOLIS [facility] Aug 17, 2024 12:00 PM AMBULATORY - NONE MERVIN CHAPMAN [facility] Nov 02, 2024 12:30 PM AMBULATORY - MEDICINE NORBERTO SOTELOPOLIS [facility] Nov 02, 2024 01:00 PM AMBULATORY - MEDICINE [place]N ASHLEIGHPOLIS [facility] Nov 02, 2024 01:30 PM AMBULATORY - MEDICINE [facility] Lab Results: +/- 30 days of the encounter This section includes the Chemistry and Hematology Lab Results on record with [place] for the patient. Radiology Reports and Pathology Reports are provided separately, in subsequent sections. Lab Results This section contains the Chemistry/Hematology Results that were resulted 30 days before or 30 daysafter the date of the Encounter. Date/Time Source Result Type Result - Unit Interpretation Reference Range Comment May 30, 2024 06:37 AM [facility] LIPID PANEL,NON-FASTING Specimen Type: PLASMA No comment entered. Ordering Provider: COLLEEN SMALL Report Released Date/Time: March 15, 2024 08:34 AM Reporting Lab: [facility] [id number] Performing Lab: [facility] [id number] CHOLESTEROL 174 mg/dL <199 .HDL 48 mg/dL >40 LDL CALCULATION 98 mg/dL <99 VLDL CALCULATION 28 mg/dL <29 NON HDL CHOLESTEROL 126 mg/dL <129 TRIG(NON FASTING) 142 mg/dL <149 May 30, 2024 06:37 AM [facility] AST/SGOT Specimen Type: PLASMA No comment entered. Ordering Provider: COLLEEN SMALL Report Released Date/Time: March 15, 2024 08:34 AM Reporting Lab: [facility] [id number] Performing Lab: [facility] [id number] AST/SGOT 28 U/L -May 30, 2024 06:37 AM [facility] ALT/SGPT Specimen Type: PLASMA No comment entered. Ordering Provider: COLLEEN SMALL Report Released Date/Time: March 15, 2024 08:34 AM Reporting Lab: [facility] [id number] Performing Lab: [facility] [id number] ALT/SGPT 21 U/L <44 Social History: Smoking Status (Most current) and Tobacco Use (All prior to encounter date) This section includes the most current, and the historical, smoking and tobacco- related health factors from the [facility] where the Encounter took place. Current Smoking Status This section includes the most current smoking, or tobacco-related health factor, from the [place] facility where the Encounter took place. Date/Time Current Smoking Status Comment Jonny nancy Jan 24, 2024 02:45 PM VA-TOBACCO NEVER USED [facility] Tobacco Use History This section includes a history of the smoking, or tobacco-related health factors, that were collected on or before the date of the Encounter. The data comes from the [place] facility where the Encounter took place. Date/Time Smoking Status/Tobacco Use Comment Wes sonia March 17, 2023 08:15 AM VA-TOBACCO NEVER USED [facility] Mar 09, 2022 08:15 AM VA-TOBACCO NEVER USED [facility] Mar 10, 2021 08:00 AM VA-TOBACCO NEVER USED [facility] May 24, 2020 08:00 AM LIFETIME NON-SMOKER [facility] Mar 10, 2019 07:57 AM VA-TOBACCO NEVER USED [facility] Encounter Notes: All associated encounter notes This section contains the clinical notes associated to the Encounter. Date/Time Encounter Note(s) Provider Source Jun 09, 2024 11:04 AM PACT NOTE: LOCAL TITLE: MEDICINE CLINIC PROVIDER TELEPHONE NOTE STANDARD TITLE: PACT NOTE DATE OF NOTE: JUN 09, 2024@11:04 ENTRY DATE: JUN 09, 2024@11:04:51 AUTHOR: COLLEEN SMALL COSIGNER: URGENCY: STATUS: COMPLETED History: Called patient to f/u on hyperlipidemia. Last visit patient's lipid panel was elevated. He stated he had not been taking atorvasatin due to myalgias. Switched to pravastatin. Repeat lipid panel improved as below. Pt reports tolerating medication well, no issues with myalgias. He reports the machine he uses for his knee to ice it has malfunctioned, requesting new one. [facility] Is very helpful after doing more activity. Objective: Specimen Collection Date: May 30, 2024@06:37 Test name Result units Ref. range Site Code AST/SGOT 28 U/L 11 - 34 [618] ALT/SGPT 21 U/L Ref: <=44 [618] CHOLESTEROL 174 mg/dL Ref: <=199 [618] TRIG(NON FASTING) 142 mg/dL Ref: <=149 [618] .HDL 48 mg/dL Ref: >=40 [618] LDL CALCULATION 98 mg/dL Ref: <=99 [618] VLDL CALCULATION 28 mg/dL Ref: <=29 [618] NON HDL CHOLESTEROL 126 mg/dL Ref: <=129 [618] Assessment/Plan: # Hyperlipidemia Lipid panel improved on pravastain. - Pravastatin 40mg qhs # Presence of artificial knee joint - Prosthetics consult for replacement machine for cold compression/icing knee Time spent swimming pool serviceperson: 11-20 minutes /piper/ COLLEEN SMALL Physician Dispatcher Ship Pilot Signed: 06/09/2024 11:41 COLLEEN SMALL [facility]
--- OUTSIDE RECORDS SUMMARY | 2024-11-14 13:25 | XMS_ITS | Encounter Summary ---
Author Name [facility] [place] [place] [facility] [place] [facility] [place] Address [address] [place] [address] Care Team Providers Care Weatherization And Housing Inspector Name Role Phone COLLEEN SMALL Primary Care Provider Unavailabl e Selected Encounter This section includes the information on record at [place] for the Encounter. Date/Time Encounter Type Encounter Description Reason Provider Source Jul 12, 2024 02:40 PM OFFICE O/P EST MOD 30 MIN OPHTHALMOLOGY ICD-10-CM H25.13 Age-related nuclear cataract, bilateral GEORGIADIS,CAT HERINE A E Encounter Template Text not used by [place] Assessments - Encounter Diagnoses This section includes the primary and secondary diagnoses documented for the Encounter. Date/Time Primary/Secondary Diagnosis Diagnosis Name Provider Source Jul 12, 2024 03:52 PM PRIMARY Age-related nuclear cataract, bilateral GEORGIADIS,CAT HERINE A [facility] Jul 12, 2024 03:52 PM SECONDARY Myopia, bilateral GEORGIADIS,CAT HERINE A [facility] Jul 12, 2024 03:52 PM SECONDARY Presbyopia GEORGIADIS,CAT HERINE A [facility] Plan of Treatment: Future Appointments (+ 6 months) and Future Tests (+/- 45 days) The Plan of Treatment section includes future care activities for the patient from all [facility] treatment[facility]. This section includes future appointments and future orders which are active, pending or scheduled. Future Appointments This section includes appointments that were scheduled to occur 6 months from the date of the Encounter, up to a maximum of 20 appointments. The data comes from all [place] treatment facilities. Appointment Date/Time Appointment Type Appointme nt Facility Name Aug 03, 2024 02:00 PM AMBULATORY - SURGERY A[facility]HA [facility] Aug 17, 2024 08:15 AM AMBULATORY - SURGERY AYESHA [facility] Aug 17, 2024 12:00 PM AMBULATORY - NONE MERVIN [facility] Nov 02, 2024 12:30 PM [facility] Nov 02, 2024 01:00 PM AMBULATORY - MEDICINE [facility] Nov 02, 2024 01:30 PM AMBULATORY - MEDICINE [facility] Social History: Smoking Status (Most current) and Tobacco Use (All prior to encounter date) This section includes the most current, and the historical, smoking and tobacco- related health factors from the [place] facility where the Encounter took place. Current Smoking Status This section includes the most current smoking, or tobacco-related health factor, from the [place] facility where the Encounter took place. Date/Time Current Smoking Status Comment Jonny cruz Jan 24, 2024 02:45 PM VA-TOBACCO NEVER USED [facility] Tobacco Use History This section includes a history of the smoking, or tobacco-related health factors, that were collected on or before the date of the Encounter. The data comes from the [place] facility where the Encounter took place. Date/Time Smoking Status/Tobacco Use Comment Wes scott March 17, 2023 08:15 AM VA-TOBACCO NEVER USED [facility] Mar 09, 2022 08:15 AM VA-TOBACCO NEVER USED [facility] Mar 10, 2021 08:00 AM VA-TOBACCO NEVER USED [facility] May 24, 2020 08:00 AM LIFETIME NON-SMOKER [facility] Mar 10, 2019 07:57 AM VA-TOBACCO NEVER USED [facility] Encounter Notes: All associated encounter notes This section contains the clinical notes associated to the Encounter. Date/Time Encounter Note(s) Provider Source Jul 14, 2024 02:49 PM ADDENDUM: LOCAL TITLE: Addendum STANDARD TITLE: ADDENDUM DATE OF NOTE: JUL 14, 2024@14:49:05 ENTRY DATE: JUL 14, 2024@14:49:06 AUTHOR: ANASTASIYA VELASQUEZ COSIGNER: URGENCY: STATUS: COMPLETED can you place the one year rtc? /es/ STUART VELASQUEZ ADVANCED MSA Signed: 07/14/2024 14:49 Receipt Acknowledged By: 07/18/2024 07:25 /es/ LEIGH RAYA MD STAFF BOTTLE CAPPER --- Original Document --- 07/12/24 OPHTHALMOLOGY CLINIC NOTE: Clinic Progress Note HPI: Patient here for complete eye exam. Denies new vision changes. Denies flashes, floaters, double vision, eye pain, headaches, amaurosis, or scotomas in vision. Denies significant chagnes to medical history since last visit. Denies family history of significant ocular disease. Vice President Of Academic Affairs work up POH: See impression PMH: See tech note Family and social history reviewed, see tech note. Tech exam today: [place]: Vision: OD:CC(with glasses) OD: 20/15 Pinhole: 20/ Near: 20/ Vision: OS:CC(with glasses) 0S: 20/15-2 Pinhole: 20/ Near: 20/ Comment: No change in RX Confrontational Mendez: Full to finger counting: Right: Yes Left: Yes Extra Ocular Movement: Normal Pupils: Right: Round Left: Round Size: Right: 3.5 Left: 3.5 React to light: Right: Yes Left: Yes Afferent pupil defect: Right:No Grade: Left: No Grade: Intra-ocular pressure (IOP): OD: 11 OS: 12 iCare Dilation: mydriacyl 1% and neosynephrine OU Jun@15:07 I have reviewed the flight test data acquisition technician's note and agree with their findings. Patient is alert and oriented x 3. SLE, right : lids/lashes: no abnormality conjunctiva/sclera: white and quiet, <1 mm nasal pterygium OD, cornea: clear epithelium, stroma, and no guttae anterior chamber: deep and quiet iris: round and flat lens: tr nuclear sclerosis anterior vitreous: clear SLE, left : lids/lashes: no abnormality conjunctiva/sclera: white and quiet,nasal pinguec OS cornea: clear epithelium, stroma, and no guttae anterior chamber: deep and quiet iris: round and flat lens: tr nuclear sclerosis anterior vitreous: clear DFE, right: vitreous: clear optic nerve: 0.4 cup/disc macula: flat vessels: normal caliber and distribution periphery: normal without holes or tears DFE, left: vitreous: clear optic nerve: 0.4 cup/disc macula: flat vessels: normal caliber and distribution periphery: normal without holes or tears Impression/Plan: 1) NSC very early, not affecting ADLs Monitor 2) Pterygium OD Early, not vis sign Monitor 3) Myopia/astig OU Glasses Rx given today Return 1 yr VTD MRx, sooner prn The patient needs glasses to read medicine bottles. The patient is photophobic and may require tinted glasses. /piper/ LEIGH RAYA MD STAFF BOTTLE CAPPER Signed: 07/12/2024 15:52 CHAGOLisaANASTASIYA GUTIERREZ Silvana [facility] Jul 12, 2024 03:41 PM OPHTHALMOLOGY ATTENDING NOTE: LOCAL TITLE: OPHTHALMOLOGY CLINIC NOTE STANDARD TITLE: OPHTHALMOLOGY ATTENDING NOTE DATE OF NOTE: JUL 12, 2024@15:41 ENTRY DATE: JUL 12, 2024@15:41:45 AUTHOR: ARSALAN RAYA COSIGNER: URGENCY: STATUS: COMPLETED OPHTHALMOLOGY CLINIC NOTE Has ADDENDA Clinic Progress Note HPI: Patient here for complete eye exam. Denies new vision changes. Denies flashes, floaters, double vision, eye pain, headaches, amaurosis, or scotomas in vision. Denies significant chagnes to medical history since last visit. Denies family history of significant ocular disease. Vice President Of Academic Affairs work up POH: See impression PMH: See tech note Family and social history reviewed, see tech note. Tech exam today: [place]: Vision: OD:CC(with glasses) OD: 20/15 Pinhole: 20/ Near: 20/ Vision: OS:CC(with glasses) 0S: 20/15-2 Pinhole: 20/ Near: 20/ Comment: No change in RX Confrontational Mendez: Full to finger counting: Right: Yes Left: Yes Extra Ocular Movement: Normal Pupils: Right: Round Left: Round Size: Right: 3.5 Left: 3.5 React to light: Right: Yes Left: Yes Afferent pupil defect: Right:No Grade: Left: No Grade: Intra-ocular pressure (IOP): OD: 11 OS: 12 iCare Dilation: mydriacyl 1% and neosynephrine OU Jun@15:07 I have reviewed the flight test data acquisition technician's note and agree with their findings. Patient is alert and oriented x 3. SLE, right : lids/lashes: no abnormality conjunctiva/sclera: white and quiet, <1 mm nasal pterygium OD, cornea: clear epithelium, stroma, and no guttae anterior chamber: deep and quiet iris: round and flat lens: tr nuclear sclerosis anterior vitreous: clear SLE, left : lids/lashes: no abnormality conjunctiva/sclera: white and quiet,nasal pinguec OS cornea: clear epithelium, stroma, and no guttae anterior chamber: deep and quiet iris: round and flat lens: tr nuclear sclerosis anterior vitreous: clear DFE, right: vitreous: clear optic nerve: 0.4 cup/disc macula: flat vessels: normal caliber and distribution periphery: normal without holes or tears DFE, left: vitreous: clear optic nerve: 0.4 cup/disc macula: flat vessels: normal caliber and distribution periphery: normal without holes or tears Impression/Plan: 1) NSC very early, not affecting ADLs Monitor 2) Pterygium OD Early, not vis sign Monitor 3) Myopia/astig OU Glasses Rx given today Return 1 yr VTD MRx, sooner prn The patient needs glasses to read medicine bottles. The patient is photophobic and may require tinted glasses. /es/ LEIGH RAYA MD STAFF BOTTLE CAPPER Signed: 07/12/2024 15:52 07/14/2024 ADDENDUM STATUS: COMPLETED can you place the one year rtc? /es/ STUART Pina RON ADVANCED MSA Signed: 07/14/2024 14:49 Receipt Acknowledged By: * AWAITING SIGNATURE * LEIGH RAYA CATHERIN E A [facility] Jul 12, 2024 03:03 PM AWNING INSTALLER NOTE: LOCAL TITLE: AWNING INSTALLER NOTE STANDARD TITLE: AWNING INSTALLER NOTE DATE OF NOTE: JUL 12, 2024@15:03 ENTRY DATE: JUL 12, 2024@15:03:14 AUTHOR: RHONA FLORES COSIGNER: URGENCY: STATUS: COMPLETED Eye Start Exam Patient: RADHA ETIENNE Sex: MALE SSN: [id number] Birthdate: [birth year] Chief complaint: routien - pt states things are fine and here for routine History of Present Illness: Location: Intensity: Duration: Active Problems List: Active problems - Computerized Problem List is the source for the followin. Gastroesophageal reflux disease (SNOMED CT 903966272) 2. Dermatitis (SNOMED CT 79517078) 3. Osteoarthritis of right hip joint (SNOMED CT 305883257380088) - R knee - has done pt and injections- steroids and lubricating injects 4. Low back pain (SNOMED CT 118332407) 5. Other Psoriasis 6. Appendectomy 7. Vasectomy Status 8. Angle of jaw closed fracture 9. Open Treatment of Acute or Chronic Elbow Dislocation 10. Amputation of the Index Finger 11. Obstructive sleep apnea of adult (SNOMED CT 7705491718397) - apap 6-15 12. Ankle pain (SNOMED CT 507264010) 13. Elbow joint pain 14. Contact dermatitis of eyelid 15. Dyslipidemia 16. Obesity 17. Erectile dysfunction (SNOMED CT 081215874) 18. Restless legs 19. Iron deficiency 20. [...] potentially hazardous substance ([facility] [id number]) - [facility] Documentation [facility] Surgeries: SURGERIES - NONE FOUND Full Exam Eye Medications Patient denies eye medication use. Allergies: MORPHINE SULFATE INJ (Jan 09, 2015) No new Allergies. Past Medical History: High cholesterol Past eye history: Denies all Past eye surgeries: Denies all Last refraction: Vision: OD:CC(with glasses) OD: 20/15 Pinhole: 20/ Near: 20/ Vision: OS:CC(with glasses) 0S: 20/15-2 Pinhole: 20/ Near: 20/ Current glasses: OD:+2.25 +2.75X2 Prism: OS:-2.25 +3.00X5 Prism: Add: +2.50 Comment: No change in RX Confrontational Mendez: Full to finger counting: Right: Yes Left: Yes Extra Ocular Movement: Normal Pupils: Right: Round Left: Round Size: Right: 3.5 Left: 3.5 React to light: Right: Yes Left: Yes Afferent pupil defect: Right:No Grade: Left: No Grade: Note: Intra-ocular pressure (IOP): OD: 11 OS: 12 iCare Dilation: mydriacyl 1% and neosynephrine OU Jun@15:07 /piper/ RHONA FLORES, OPHTHALMOLGY TECH OPHTHALMOLOGY TECH Signed: 07/12/2024 15:08 RHONA FLORES [facility]
--- OUTSIDE RECORDS SUMMARY | 2024-11-14 13:25 | XMS_ITS | Encounter Summary ---
Author Name [facility] [place] Organization [facility] [place] [place] [facility] [place] Address [address] [place] [address] Care Team Providers Care Negotiations Director Name Role Phone COLLEEN SMALL Primary Care Provider Unavailabl e Selected Encounter This section includes the information on record at [place] for the Encounter. Date/Time Encounter Type Encounter Description Reason Pro vider Source Jun 23, 2024 01:36 PM Outpatient Encounter COMMUNITY CARE CONSULT IHE [...] 12, 2024 02:40 PM AMBULATORY - SURGERY [facility] Aug 03, 2024 02:00 PM AMBULATORY - SURGERY [facility] Aug 17, 2024 08:15 AM AMBULATORY - SURGERY [facility] Aug 17, 2024 12:00 PM AMBULATORY - NONE [facility] Nov 02, 2024 12:30 PM [facility] Nov 02, 2024 01:00 PM [facility] Nov 02, 2024 01:30 PM AM[facility]ULATORY - MEDICINE [facility] Lab Results: +/- 30 days [...] Range Comment May 30, 2024 06:37 AM [facility] AST/SGOT Specimen Type: PLASMA No comment entered. Ordering Provider: COLLEEN SMALL Report Released Date/Time: March 15, 2024 08:34 AM Reporting Lab: [facility] [id number] Performing Lab: [facility] [id number] AST/SGOT 28 U/L -34 May 30, 2024 06:37 AM [facility] ALT/SGPT Specimen Type: PLASMA No comment entered. Ordering Provider: COLLEEN SMALL Report Released Date/Time: March 15, 2024 08:34 AM Reporting Lab: [facility] [id number] Performing Lab: [facility] [id number] ALT/SGPT 21 U/L <44 May 30, 2024 06:37 AM [facility] LIPID PANEL,NON-FASTING Specimen Type: PLASMA No comment entered. Ordering Provider: COLLEEN SMALL Report Released Date/Time: March 15, 2024 08:34 AM Reporting Lab: [facility] [id number] Performing Lab: [facility] [id number] CHOLESTEROL 174 mg/dL <199 .HDL 48 mg/dL [...] smoking, or tobacco-related health factor, from the [place] facility where the Encounter took place. Date/Time Current Smoking Status Comment Jonny cruz Jan 24, 2024 02:45 PM [place]-TOBACCO NEVER USED [facility] Tobacco Use History This section includes a history of the smoking, or tobacco-related health factors, that were collected on or before the date of the Encounter. The data comes from the [place] facility where the Encounter took place. Date/Time Smoking Status/Tobacco Use Comment F acility March 17, 2023 08:15 AM VA-TOBACCO NEVER USED [facility] Mar 09, 2022 08:15 AM VA-TOBACCO NEVER USED [facility] Mar 10, 2021 08:00 AM VA-TOBACCO NEVER USED [facility] May 24, 2020 08:00 AM LIFETIME NON-SMOKER [facility] Mar 10, 2019 07:57 AM VA-TOBACCO NEVER USED [facility] Encounter Notes: All associated encounter notes This section contains the clinical notes associated to the Encounter. Date/Time Encounter Note(s) Provider Source Jun 23, 2024 01:36 PM NONVA NOTE: LOCAL TITLE: COMMUNITY CARE PRE-AUTH LETTER (AUTOPRINT) STANDARD TITLE: NONVA NOTE DATE OF NOTE: JUN 23, 2024@13:36 ENTRY DATE: JUN 23, 2024@13:36:21 AUTHOR: ELIZABETH BUTT EXP COSIGNER: URGENCY: STATUS: COMPLETED Jun RADHA ETIENNE [address], [place] [address] Dear RADHA ETIENNE, Your VA provider has referred you to a provider within the community for care. Your medical care for ENT has been authorized with the community care provider listed below. DO NOT REPORT TO THE [place] [facility] Provider info: Care has been approved for the following vendor: Office name, address, and phone number: [address] [address] Please contact the identified provider to schedule your community appointment. If you need assistance with this appointment, please call your facility community care office [facility] Office of Community Care at [phone] during the hours of 8:30AM - 3:00PM. Please follow up with your local [facility] community care office once this is scheduled. This step is needed to ensure your referral duration is maximized and the [place] has accurate referral information for billing purposes. Authorization Number: [id number] Referral Issue Date: May Expiration Date: Nov (subject to change based on first appointment) If you are unable to schedule this appointment or the appointment is no longer needed, please contact the community provider above for notification/rescheduling and then call the [facility] Office of Community Care at [phone] during the hours of 8:30AM - 3:00PM. If you need additional care/services not mentioned above or your authorization has and additional care is needed, please contact your primary care provider for a new referral. To review all care/service(s) approved under your referral, please go to the following link: [employer] [facility] [facility]([email or web address]) Co-Payments: If you are required to pay a VA co-payment, you will be billed by the [place] for each authorized visit that you attend. However, you are NOT REQUIRED to make co-payments to a community provider. Thank you for the opportunity to serve you. Sincerely, [place] [facility] ([facility]ACC) /piper/ ELIZABETH BUTT [employer]ED MSA Signed: 06/23/2024 13:37 ELIZABETH BUTT [facility]
--- OUTSIDE RECORDS SUMMARY | 2024-11-14 13:25 | XMS_ITS | Encounter Summary ---
Author Name [facility] Organization [facility] [place] Address [address] [place] [address] Care Team Providers Care Show Worker Name Role Phone COLLEEN SMALL Primary Care Provider Unavailabl e Selected Encounter This section includes the information on record at [place] for the Encounter. Date/Time Encounter Type Encounter Description Reason Provider Source Aug 24, 2024 02:28 PM IMMUNIZATION ADMIN PRIMARY CARE/MEDICINE ICD-10-CM Z23 Encounter for immunization DORETHA HARRISON E Encounter Template Text not used by [place] Assessments - Encounter Diagnoses This section includes the primary and secondary diagnoses documented for the Encounter. Date/Time Primary/Secondary Diagnosis Diagnosis Name Provider Source Aug 24, 2024 02:32 PM PRIMARY Encounter for immunization DORETHA HARRISON [facility] Plan of Treatment: Future Appointments [...] 02, 2024 12:30 PM AMBULATORY - MEDICINE [facility] Nov 02, 2024 01:00 PM AMBULATORY - MEDICINE [facility] Nov 02, 2024 01:30 PM AMBULATORY - MEDICINE [facility] Immunizations: All administered on the encounter date This section contains immunizations associated to the Encounter. Immunization Series Date Issued Reaction Comments INFLUENZA, SPLIT VIRUS, TRIVALENT, PF Aug 24 Social History: Smoking Status (Most current) and Tobacco Use (All prior to encounter date) This section includes the most current, and the historical, smoking and tobacco- related health factors from the [facility] where the Encounter took place. Current Smoking Status This section includes the most current smoking, or tobacco-related health factor, from the [facility] where the Encounter took place. Date/Time Current Smoking Status Comment Jonny ity Jan 24, 2024 02:45 PM [place]-TOBACCO NEVER USED [facility] Tobacco Use History This section includes a history of the smoking, or tobacco-related health factors, that were collected on or before the date of the Encounter. The data comes from the [facility] where the Encounter took place. Date/Time Smoking Status/Tobacco Use Comment F acility March 17, 2023 08:15 AM VA-TOBACCO NEVER USED [facility] Mar 09, 2022 08:15 AM VA-TOBACCO NEVER USED [facility] Mar 10, 2021 08:00 AM VA-TOBACCO NEVER USED [facility] May 24, 2020 08:00 AM LIFETIME NON-SMOKER [facility] Mar 10, 2019 07:57 AM [place]-TOBACCO NEVER USED [facility] Encounter Notes: All associated encounter [...] PF Date Administered: Aug 24, 2024 14:28 Appraisal Manager: Searchbox Lot: [id number] Exp Date: May 14, 2025 Admin Route/Site: INTRAMUSCULAR/LEFT DELTOID Dosage: 0.5mL Vaccine Information Statement(s): INFLUENZA(FLU) VACC(INACTIVATED OR RECOMBINANT)VIS Jun 20, 2021 ([place]) Order By: Policy Administered By: Nikhil Harrison [...] to receive the vaccine. /piper/ NIKHIL HARRISON RN BSN [facility] [employer] PAYABLE SPECIALIST [employer]ONEWORK TRACER Signed: 08/24/2024 14:32 NIKHIL HARRISON [facility]
[2024-11-24] VITALS (13 sets, daily range): BP systolic 117–138; BP diastolic 84–101; PULSE 54–65; RESP 15–20; TEMP 35.8–36.6; O2SAT 93–98; BMI 33.2
--- OUTSIDE RECORDS SUMMARY | 2024-11-24 07:57 | XMS_ITS | Continuity of Care Document ---
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 It does not include entries that were removed or entered in error. Problem Status Onset Date Problem Type Date of Resolution Comments Source Exposure to potentially hazardous substance ([facility] [id number]) Active 024 Condition Jan 21, 2024 Entered By: MARÍA CURIEL [facility]: [facility] Documentation Initiative [facility] shoulder separation right Active Condition DoD lumbago [...] Active Condition order 1st BF Rx: OD -0.50-2.14w516 OS -0.50-2.84k858 Add +1.00 OU DoD chondromalacia Active Condition GR1 CMP. DoD joint pain, localized in the shoulder Active Condition SEE NOTE. DoD osteoarthritis localized primary knee Active Condition Rt knee. [facility] visit for: screening exam hypertension Inactive Condition Pt w/elevated BP today. Pt has been referred for 5 day BP check. Mbr will be TDY for 2 wks and then start 5 day check. [facility] visit for: services physical Active Condition NAD//Please see DD form 2142. 10 year total coronary heart disease risk 4%. Continued to stress TLC. Will call with results. 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 [facility] Angle of jaw closed fracture Active Condition [facility] Ankle pain (SNOMED CT 332033441) Active Condition [facility] Appendectomy Active Condition [facility] Louie's esophagus Active Condition [facility] Chronic rhinitis Active Condition [facility] Contact dermatitis of eyelid Active Condition [facility] Dermatitis (SNOMED CT 77067430) Active Condition [facility] DS EXPOSURE TO OIL-WELL FIRE SMOKE Active Condition [facility] DS/OIF EXPOSURE TO CONNIE-8 FUEL AND EXHAUST Active Condition [facility] DS/OIF EXPOSURE TO SAND/DUST STORMS Active Condition [facility] Dyslipidemia Active Condition [facility] Elbow joint pain Active Condition [facility] Erectile dysfunction (SNOMED CT 750328143) Active Condition [facility] Gastroesophageal reflux disease (SNOMED CT 719047265) Active Condition [facility] Iron deficiency Active Condition [facility] Low back pain (SNOMED CT 321917464) Active Condition [facility] Obesity Active Condition [facility] Obstructive sleep apnea of adult (SNOMED CT 7256685576735) Active Condition Nov 18, 2023 Entered By: TALITA GERBER Comment: apap 6-15 [facility] OIF EXPOSURE TO BURN PIT SMOKE Active Condition [facility] OIF EXPOSURE TO TRIETHYLCHOLINE Active Condition [facility] Open Treatment of Acute or Chronic Elbow Dislocation Active Condition [facility] Osteoarthritis of right hip joint (SNOMED CT 848893159004581) Active Condition Dec 25 2 Entered By: DEMETRIUS RAO Comment: R kneeFeb 2011 Entered By: DEMETRIUS RAO Comment: has done pt and injections- steroids and lubricating injects [facility] Osteoarthritis of right knee joint Active Condition [facility] Other Psoriasis Active Condition [facility] Pain of right shoulder joint Active Condition [facility] Restless legs Active Condition [facility] Vasectomy Status Active Condition [facility] Diagnosis: ICD-10-CM Z01.818 Encounter for other preprocedural examination Active Diagnosis [facility] Diagnosis: ICD-10-CM Z13.6 Encounter for screening for cardiovascular disorders Active Diagnosis [facility] Diagnosis: ICD-10-CM Z23 Encounter for immunization Active Diagnosis [facility] Diagnosis: ICD-10-CM H90.3 Sensorineural hearing loss, bilateral Active Diagnosis [facility] Diagnosis: ICD-10-CM Z01.20 Encounter for dental exam and cleaning w/o abnormal findings Active Diagnosis [facility] Diagnosis: ICD-10-CM H25.13 Age-related nuclear cataract, bilateral Active Diagnosis [facility] Diagnosis: ICD-10-CM E78.5 Hyperlipidemia, unspecified Active Diagnosis [facility] Diagnosis: ICD-10-CM M72.2 Plantar fascial fibromatosis Active Diagnosis [facility] Diagnosis: ICD-10-CM R09.81 Nasal congestion Active Diagnosis [facility] Diagnosis: ICD-10-CM J01.91 Acute recurrent sinusitis, unspecified Active Diagnosis [facility] Diagnosis: ICD-10-CM G47.33 Obstructive sleep apnea (adult) (pediatric) Active Diagnosis [facility] Diagnosis: ICD-10-CM J31.0 Chronic rhinitis Active Diagnosis [facility] Diagnosis: ICD-10-CM J01.90 Acute sinusitis, unspecified Active Diagnosis [facility] Diagnosis: ICD-10-CM L82.1 Other seborrheic keratosis Active Diagnosis [facility] Diagnosis: ICD-10-CM R21 Rash and other nonspecific skin eruption Active Diagnosis [facility] Diagnosis: ICD-10-CM Z46.1 Encounter for fitting and adjustment of hearing aid Active Diagnosis [facility] Diagnosis: ICD-10-CM K22.70 Louie's esophagus without dysplasia Active Diagnosis [facility] Medications Combined list of outpatient [...] 24 HOURS FROM ALL SOURCES* ACTIVE 03/16/2025 [id number] Demetria SMALL [address] [facility] ACETAMINOPH EN 500MG TAB TAKE TWO TABLETS BY MOUTH AT BEDTIME ORAL ACTIVE DEANDRA DAMICO 2017 [facility] AMOXICILLIN TRIHYDRATE 500MG CAP TAKE FOUR CAPSULES BY MOUTH ONCE 1 HOUR PRIOR TO DENTAL PROCEDUR E ORAL 03/17/2024 [id number] 4 GEOVANNYDemetria SJ CARROLL [address] [facility] AMOXICILLIN TRIHYDRATE 875MG/CLAVU LANATE K 125MG TAB TAKE 1 TABLET BY MOUTH TWICE A DAY FOR ACUTE SINUSITI S ORAL 02/23/2024 [id number] Demetria SMALL [address] [facility] AMOXICILLIN -CLAVULANAT E POTASS (amoxicilli n/potassium clavulanate ), 875-125 MG, TABLET, ORAL, USANTIBIOTI CS,, 20 ea. BOTTLE Active [id number] 4 2023 20 Pharmac y [facility] y Benzonatate (ActX) 100 CAPSULE in 1 BOTTLE Active [id number] 11/24/19 2 4 2023 30 [facility] CETIRIZINE HCL 10MG TAB TAKE ONE TABLET BY MOUTH EVERY DAY FOR ALLERGIE S ORAL ACTIVE 01/24/2025 [id number] 4 GEOVANNYDemetria SJ CARROLL [address] [facility] CETIRIZINE HCL 10MG TAB TAKE ONE TABLET BY MOUTH EVERY DAY FOR ALLERGIE S ORAL DISCONT INUED 03/17/2024 [id number] 4 Demetria SMALL [address] [facility] DICLOFENAC NA 1% GEL,TOP APPLY 2 GRAMS TOPICALL Y FOUR TIMES A DAY NEEDED TO AFFECTED AREA FOR PAIN TOPICA L ACTIVE 03/16/2025 [id number] GE[address]ria [address] [facility] DICLOFENAC NA 1% GEL,TOP APPLY 2 GRAMS TOPICALL Y FOUR TIMES A DAY NEEDED TO AFFECTED AREA FOR PAIN. *USE DOSE CARD IN BOX TO MEASURE DOSE. MAX 32 GRAMS PER DAY. FOR SHOULDER PAIN TO AFFECTED AREA FOR PAIN. *USE DOSE CARD IN BOX TO MEASURE DOSE. MAX 32 GRAMS PER DAY. FOR SHOULDER PAIN TOPICA L DISCONT INUED 03/17/2024 [id number] Demetria SMALL 2022 100 [place] [facility] FLUTICASONE PROPIONATE 50MCG/SPRAY SOLN,NASAL, 16GM SPRAY 2 SPRAYS IN EACH NOSTRIL EVERY DAY FOR ALLERGIE S NASAL SUSPEND ED 01/24/2025 [id number] Demetria SMALL 2023 3 [place] [facility] FLUTICASONE PROPIONATE 50MCG/SPRAY SOLN,NASAL, 16GM SPRAY 2 SPRAYS IN EACH NOSTRIL EVERY DAY FOR ALLERGIE S NASAL DISCONT INUED 03/17/2024 [id number] Demetria SMALL 2022 3 [facility] MECLIZINE HCL 25MG TAB,CHEWABL E CHEW ONE TABLET BY MOUTH THREE TIMES A DAY NEEDED FOR MOTION SICKNESS ORAL ACTIVE 03/16/2025 [id number] Demetria SMALL 2023 30 [place] [facility] MULTIVITAMI NS CAP/TAB TAKE 1 TABLET BY MOUTH EVERY DAY ORAL ACTIVE 03/16/2025 [id number] Demetria SMALL 2023 100 [place] [facility] MULTIVITAMI NS CAP/TAB TAKE 1 TABLET BY MOUTH EVERY DAY ORAL DISCONT INUED 03/17/2024 [id number] Demetria SMALL 2022 100 [facility] OMEPRAZOLE 20MG CAP,EC TAKE ONE CAPSULE BY MOUTH EVERY DAY ON AN EMPTY STOMACH, AT LEAST 30 MINUTES PRIOR TO A MEAL TO DECREASE STOMACH ACID ORAL ACTIVE 03/16/2025 [id number] Demetria SMALL 2023 90 [place] [facility] OMEPRAZOLE 20MG CAP,EC TAKE ONE CAPSULE BY MOUTH EVERY DAY ON AN EMPTY STOMACH, AT LEAST 30 MINUTES PRIOR TO A MEAL TO DECREASE STOMACH ACID ORAL DISCONT INUED 03/17/2024 [id number] 4 Demetria SMALL [address] [facility] PRAVASTATIN NA 40MG TAB TAKE ONE TABLET BY MOUTH AT BEDTIME FOR CHOLESTE ROL ORAL ACTIVE 03/16/2025 [id number] Demetria SMALL [address] [facility] PSEUDOEPHED RINE HCL 60MG TAB TAKE ONE TABLET BY MOUTH EVERY 6 HOURS NEEDED FOR CONGESTI ON ORAL 11/18/2023 [id number] LALY VERA E [address] [facility] SILDENAFIL CITRATE 100MG TAB TAKE ONE-HALF TABLET BY MOUTH NEEDED FOR ERECTION S - TAKE 1 HOUR BEFORE ANTICIPA PATRIA SEXUAL ACTIVITY ORAL ACTIVE 03/16/2025 [id number] 4 Demetria SMALL [address] [facility] SILDENAFIL CITRATE 100MG TAB TAKE ONE-HALF TABLET BY MOUTH NEEDED FOR ERECTION S - TAKE 1 HOUR BEFORE ANTICIPA PATRIA SEXUAL ACTIVITY ORAL DISCONT INUED 03/17/2024 [id number] Demetria SMALL [address] [facility] SODIUM CHLORIDE 0.65% SOLN,NASAL SPRAY SPRAY 1-2 SPRAYS IN EACH NOSTRIL EVERY DAY NEEDED FOR NASAL DRYNESS NASAL 11/18/2023 [id number] LALY VERA [address] [facility] VANICREAM APPLY THIN LAYER TOPICALL Y EVERY DAY TO ALL SKIN, IDEALLY WITHIN 3 MINUTES AFTER BATH OR SHOWER. TOPICA L ACTIVE 03/16/2025 [id number] 4 Demetria SMALLTH [address] [facility] Allergies, Adverse Reactions, Alerts Combined list of allergies from Department of Defense and Veterans Affairs facilities. It does not include entries that were removed or entered in error. Substance Category Reaction Severity Reaction type Status Date Reported Comments Source Morphine Drug allergy (disorder) Urticaria active 5 [facility] MORPHINE SULFATE INJ Propensity to adverse reactions to drug (finding) Urticaria active 5 [facility] Immunizations Combined list of available immunizations from the Department of Defense and Veterans Affairs facilities. Immunization Series Date Given Administered By Site Reaction Lot Number CVX Code Drug Solution Professional Status Comments Source INFLUENZA, SPLIT VIRUS, TRIVALENT, PF 2023 DORETHA HARRISON LEFT DELTO ID [id number] [address] [facility] INFLUENZA, INJECTABLE, QUADRIVALENT, PRESERVATIVE FREE 2022 SALAS EDWARDS LEFT DELTO ID [id number] [address] [facility] ZOSTER RECOMBINANT 2 2022 SALAS EDWARDS LEFT DELTO ID [id number] 187 complet ed [id number] 07/04/24 [facility] ZOSTER RECOMBINANT 1 [address] J[address] M LEFT DELTO ID [id number] [id number] [facility] INFLUENZA, INJECTABLE, QUADRIVALENT, PRESERVATIVE FREE [address] [facility] COVID-19 (PFIZER), MRNA, LNP-S, PF, 30 MCG/0.3 ML DOSE 3 2020 208 complet ed PFR; [id number]; 2 [facility] INFLUENZA, INJECTABLE, QUADRIVALENT, PRESERVATIVE FREE [address] [facility] TDAP [address] [facility] COVID-19 (MODERNA), MRNA, LNP-S, PF, 100 MCG/0.5 ML DOSE 2 2020 207 complet ed [place] COVID-19 (MODERNA), MRNA, LNP-S, PF, 100 MCG/0.5ML DOSE OR 50 MCG/0.25ML DOSE [address] [facility] INFLUENZA, INJECTABLE, QUADRIVALENT, PRESERVATIVE FREE [address] [facility] INFLUENZA, INJECTABLE, QUADRIVALENT 2018 158 complet ed [facility] Administe red by: [facility] Clinician (NPI=Not Provided) . Partner 3 Lot#: [id number] Mfr: SEQIRUS [facility] INFLUENZA, SEASONAL, INJECTABLE, PRESERVATIVE FREE [address] [facility] INFLUENZA, INJECTABLE, MDCK, PRESERVATIVE FREE, QUADRIVALENT 2016 171 complet ed Partner: [place] . Administe red by: [place] Clinician (NPI=Not Provided) . Partner 3 Lot#: [id number] Mfr: SEQIRUS [facility] INFLUENZA, SEASONAL, INJECTABLE, PRESERVATIVE FREE 2015 140 complet ed [facility] TDAP 2015 115 complet ed [employer], Lot [id number], Exp 8 [facility] TDAP 2008 115 complet ed [facility] tetanus toxoid, reduced diphtheria toxoid, and acellular pertu is vaccine, adsorbed 1 2007 Unknown, Provider [id number] Sanofi Pasteur ([facility]) complet ed tetanus toxoid, reduced diphtheri a toxoid, and acellular pertussis vaccine, adsorbed [facility] influenza virus vaccine, live, attenuated, for intranasal use 1 2006 Unknown, Provider [id number] [place] [employer]. (MED) complet ed influenza virus vaccine, live, attenuate d, for intranasa l use DoD influenza virus vaccine, split virus (incl. purified surface antigen)-reti red CODE 1 2005 [id number] Sanofi Pasteur ([facility]) complet ed influenza virus vaccine, split virus (incl. purified surface antigen)- retired CODE DoD influenza virus vaccine, split virus (incl. purified surface antigen)-reti red CODE 1 2004 UNK 15 Unknown (UNK) comple t ed influenza virus vaccine, split virus (incl. purified surface antigen)- retired CODE DoD anthrax vaccine 4 2003 [id number] [employer]gent [employer] [place] ([facility]) complet ed anthrax vaccine DoD influenza virus vaccine, whole virus 0 2002 [id number] 16 [employer] (PWJ) complet ed influenza virus vaccine, whole virus DoD anthrax vaccine 3 2002 24 Transcribed (TRS) complet ed anthrax vaccine DoD anthrax vaccine 2 2002 [id number] [facility] [place] ([facility]) complet ed anthrax vaccine DoD vaccinia (smallpox) vaccine, diluted 0 2002 [id number] [place] ([facility]) complet ed vaccinia (smallpox ) vaccine, diluted DoD anthrax vaccine 1 2002 [id number] [facility] [employer] [facility] ([facility]) complet ed anthrax vaccine DoD influenza virus vaccine, whole virus 0 2001 [id number] 16 Sanofi Pasteur ([facility]) complet ed influenza virus vaccine, whole virus DoD meningococcal polysaccharid e vaccine (MPSV4) 0 2001 [id number] 32 Sanofi Pasteur ([facility]) complet ed meningoco ccal polysacch aride vaccine (MPSV4) DoD typhoid vaccine, parenteral, other than acetone-kille d, dried 0 2001 [id number] Sanofi Pasteur ([facility]) complet ed typhoid vaccine, parentera l, other than acetone-k illed, dried DoD influenza virus vaccine, whole virus 0 2000 [id number] 16 Sanofi Pasteur ([facility]) complet ed influenza virus vaccine, whole virus DoD tetanus and diphtheria toxoids, adsorbed, preservative free, for adult use (2 Lf of tetanus toxoid and 2 Lf of diphtheria toxoid) 0 1996 [id number] Reuben (LED) comple t ed tetanus and diphtheri a toxoids, adsorbed, preservat cristiana free, for adult use (2 Lf of tetanus toxoid and 2 Lf of diphtheri a toxoid) DoD influenza virus vaccine, whole virus 0 [id number] [place]ne-[place]at (Inactive) ([place]) complet ed influenza virus vaccine, whole virus DoD hepatitis A vaccine, adult dosage 2 1996 [id number] [facility] ([facility]) complet ed hepatitis A vaccine, adult [...] Sep 29, 2024 12:36 PM Reporting Lab: [facility] [address] Performing Lab: [facility] [address] [facility] CBC ERYTHROCYTE S [#/VOLUME] IN BLOOD BY AUTOMATED COUNT 5.53 4.60 - 6.20 11/02 Specimen Type: BLOOD No comment entered. Ordering Provider: RAZ GARCIA Report Released Date/Time: Sep 29, 2024 12:36 PM Reporting Lab: [facility] [address] Performing Lab: [facility] [address] [place] [facility] CBC HEMOGLOBIN [MASS/VOLUM E] IN BLOOD 16.0 g/dL 13.5 - 17.9 11/02 Specimen Type: BLOOD No comment entered. Ordering Provider: RAZ GARCIA Report Released Date/Time: Sep 29, 2024 12:36 PM Reporting Lab: [facility] [address] Performing Lab: [address] [place] [facility] CBC HEMATOCRIT [VOLUME FRACTION] OF BLOOD BY AUTOMATED COUNT 49.6 41.0 - 54.0 11/02 Specimen Type: BLOOD No comment entered. Ordering Provider: RAZ GARCIA Report Released Date/Time: Sep 29, 2024 12:36 PM Reporting Lab: [facility] [address] Performing Lab: [facility] [address] [place] [facility] CBC MCV [ENTITIC VOLUME] BY AUTOMATED COUNT 89.7 fL 80.0 - 100.0 11/02 Specimen Type: BLOOD No comment entered. Ordering Provider: RAZ GARCIA Report Released Date/Time: Sep 29, 2024 12:36 PM Reporting Lab: [facility] [address] Performing Lab: [facility] [address] [place] [facility] CBC MCH [ENTITIC MASS] BY AUTOMATED COUNT 28.9 pg 27.0 - 33.0 11/02 Specimen Type: BLOOD No comment entered. Ordering Provider: RAZ GARCIA Report Released Date/Time: Sep 29, 2024 12:36 PM Reporting Lab: [facility] [address] Performing Lab: [facility] [address] [place] [facility] CBC MCHC [MASS/VOLUM E] BY AUTOMATED COUNT 32.3 g/dL 32.0 - 37.5 11/02 Specimen Type: BLOOD No comment entered. Ordering Provider: RAZ GARCIA Report Released Date/Time: Sep 29, 2024 12:36 PM Reporting Lab: [facility] [address] Performing Lab: [place] [phone] [place] [facility] CBC PLATELETS [#/VOLUME] IN BLOOD BY AUTOMATED COUNT 217 150 - 400 11/02 Specimen Type: BLOOD No comment entered. Ordering Provider: RAZ GARCIA Report Released Date/Time: Sep 29, 2024 12:36 PM Reporting Lab: [facility] [address] Performing Lab: [facility] [address] [place] [facility] CBC PLATELET MEAN VOLUME [ENTITIC VOLUME] IN BLOOD BY AUTOMATED COUNT 10.2 fL 9.1 - 13.0 11/02 Specimen Type: BLOOD No comment entered. Ordering Provider: RAZ GARCIA Report Released Date/Time: Sep 29, 2024 12:36 PM Reporting Lab: [facility] [address] Performing Lab: [facility] [address] [place] [facility] CBC ERYTHROCYTE DISTRIBUTIO N WIDTH [RATIO] BY AUTOMATED COUNT 13.1 11.5 - 14.5 11/02 Specimen Type: BLOOD No comment entered. Ordering Provider: RAZ GARCIA Report Released Date/Time: Sep 29, 2024 12:36 PM Reporting Lab: [facility] [address] Performing Lab: [facility] [address] [place] [facility] ALT/SGPT ALANINE AMINOTRANSF ERASE [ENZYMATIC ACTIVITY/VO LUME] IN SERUM OR PLASMA 21 U/L <44 - 44 05/30 Specimen Type: PLASMA No comment entered. Ordering Provider: DEANDRA SMALL Report Released Date/Time: March 15, 2024 08:34 AM Reporting Lab: [facility] [address] Performing Lab: [facility] [address] [place] [facility] AST/SGOT ASPARTATE AMINOTRANSF ERASE [ENZYMATIC ACTIVITY/VO LUME] IN SERUM OR PLASMA 28 U/L 11 - 34 05/30 Specimen Type: PLASMA No comment entered. Ordering Provider: DEANDRA SMALL Report Released Date/Time: March 15, 2024 08:34 AM Reporting Lab: [facility] [address] Performing Lab: [facility] [address] [place] [facility] LIPID PANEL,NON -FASTING CHOLESTEROL [MASS/VOLUM E] IN SERUM OR PLASMA 174 mg/dL <199 - 199 05/30 Specimen Type: PLASMA No comment entered. Ordering Provider: DEANDRA SMALL Report Released Date/Time: March 15, 2024 08:34 AM Reporting Lab: [facility] [address] Performing Lab: [facility] [address] [place] [facility] LIPID PANEL,NON -FASTING CHOLESTEROL IN HDL [MASS/VOLUM E] IN SERUM OR PLASMA 48 mg/dL 40 05/30 Specimen Type: PLASMA No comment entered. Ordering Provider: DEANDRA SMALL Report Released Date/Time: March 15, 2024 08:34 AM Reporting Lab: [facility] [address] Performing Lab: [facility] [address] [place] [facility] LIPID PANEL,NON -FASTING CHOLESTEROL IN LDL [MASS/VOLUM E] IN SERUM OR PLASMA BY CALCULATION 98 mg/dL <99 - 99 05/30 Specimen Type: PLASMA No comment entered. Ordering Provider: DEANDRA SMALL Report Released Date/Time: March 15, 2024 08:34 AM Reporting Lab: [facility] [address] Performing Lab: [facility] [address] [place] [facility] LIPID PANEL,NON -FASTING CHOLESTEROL IN VLDL [MASS/VOLUM E] IN SERUM OR PLASMA BY CALCULATION 28 mg/dL <29 - 29 05/30 Specimen Type: PLASMA No comment entered. Ordering Provider: DEANDRA SMALL Report Released Date/Time: March 15, 2024 08:34 AM Reporting Lab: [facility] [address] Performing Lab: [facility] [address] [place] [facility] LIPID PANEL,NON -FASTING CHOLESTEROL NON HDL [MASS/VOLUM E] IN SERUM OR PLASMA 126 mg/dL <129 - 129 05/30 Specimen Type: PLASMA No comment entered. Ordering Provider: DEANDRA SMALL Report Released Date/Time: March 15, 2024 08:34 AM Reporting Lab: [facility] [address] Performing Lab: [facility] [address] [place] [facility] LIPID PANEL,NON -FASTING TRIGLYCERID E [MASS/VOLUM E] IN SERUM OR PLASMA 142 mg/dL <149 - 149 05/30 Specimen Type: PLASMA No comment entered. Ordering Provider: DEANDRA SMALL Report Released Date/Time: March 15, 2024 08:34 AM Reporting Lab: [facility] [address] Performing Lab: [facility] [address] [place] [facility] ALT/SGPT ALANINE AMINOTRANSF ERASE [ENZYMATIC ACTIVITY/VO [...] March 17, 2023 09:36 AM Reporting Lab: [facility] [address] Performing Lab: [facility] [address] [place] [facility] AST/SGOT ASPARTATE AMINOTRANSF ERASE [ENZYMATIC ACTIVITY/VO [...] March 17, 2023 09:36 AM Reporting Lab: [facility] [address] Performing Lab: [facility] [address] [place] [facility] BASIC METABOLIC PANEL+MG CREATININE [MASS/VOLUM E] [...] March 17, 2023 09:36 AM Reporting Lab: [facility] [address] Performing Lab: [facility] [address] [place] [facility] BASIC METABOLIC PANEL+MG UREA NITROGEN [MASS/VOLUM [...] March 17, 2023 09:36 AM Reporting Lab: [facility] [address] Performing Lab: [facility] [address] [place] [facility] BASIC METABOLIC PANEL+MG GLUCOSE [MASS/VOLUM E] [...] March 17, 2023 09:36 AM Reporting Lab: [facility] [address] Performing Lab: [facility] [address] [place] [facility] BASIC METABOLIC PANEL+MG SODIUM [MOLES/VOLU ME] [...] March 17, 2023 09:36 AM Reporting Lab: [facility] [address] Performing Lab: [facility] [address] [place] [facility] BASIC METABOLIC PANEL+MG POTASSIUM [MOLES/VOLU ME] [...] March 17, 2023 09:36 AM Reporting Lab: [facility] [address] Performing Lab: [place] [phone] [place] [facility] BASIC METABOLIC PANEL+MG CHLORIDE [MOLES/VOLU ME] [...] March 17, 2023 09:36 AM Reporting Lab: [facility] [address] Performing Lab: [facility] [address] [place] [facility] BASIC METABOLIC PANEL+MG CARBON DIOXIDE, TOTAL [...] March 17, 2023 09:36 AM Reporting Lab: [facility] [address] Performing Lab: [facility] [address] [place] [facility] BASIC METABOLIC PANEL+MG CALCIUM [MASS/VOLUM E] [...] March 17, 2023 09:36 AM Reporting Lab: [facility] [address] Performing Lab: [facility] [address] [place] [facility] BASIC METABOLIC PANEL+MG MAGNESIUM [MASS/VOLUM E] [...] March 17, 2023 09:36 AM Reporting Lab: [facility] [address] Performing Lab: [facility] [address] [place] [facility] BASIC METABOLIC PANEL+MG ANION GAP IN [...] March 17, 2023 09:36 AM Reporting Lab: [facility] [address] Performing Lab: [facility] [address] [place] [facility] BASIC METABOLIC PANEL+MG GLOMERULAR FILTRATION RATE/1.73 [...] March 17, 2023 09:36 AM Reporting Lab: [facility] [address] Performing Lab: [facility] [address] [place] [facility] CBC LEUKOCYTES [#/VOLUME] IN BLOOD BY AUTOMATED COUNT 6.00 10*3/u L 4.0 - 11.0 03/15 Specimen Type: BLOOD No comment entered. Ordering Provider: DEANDRA SMALL Report Released Date/Time: March 17, 2023 09:36 AM Reporting Lab: [facility] [address] Performing Lab: [facility] [address] [place] [facility] CBC ERYTHROCYTE S [#/VOLUME] IN BLOOD BY AUTOMATED COUNT 5.49 10*6/u L 4.6 - 6.2 03/15 Specimen Type: BLOOD No comment entered. Ordering Provider: DEANDRA SMALL Report Released Date/Time: March 17, 2023 09:36 AM Reporting Lab: [facility] [address] Performing Lab: [place] [phone] [place] [facility] CBC HEMOGLOBIN [MASS/VOLUM E] IN BLOOD 15.7 g/dL 13.5 - 17.9 03/15 Specimen Type: BLOOD No comment entered. Ordering Provider: DEANDRA SMALL Report Released Date/Time: March 17, 2023 09:36 AM Reporting Lab: [facility] [address] Performing Lab: [facility] [address] [place] [facility] CBC HEMATOCRIT [VOLUME FRACTION] OF BLOOD BY AUTOMATED COUNT 48.9 41 - 54 03/15 Specimen Type: BLOOD No comment entered. Ordering Provider: DEANDRA SMALL Report Released Date/Time: March 17, 2023 09:36 AM Reporting Lab: [facility] [address] Performing Lab: [facility] [address] [place] [facility] CBC MCV [ENTITIC VOLUME] BY AUTOMATED COUNT 89.1 fL 80 - 100 03/15 Specimen Type: BLOOD No comment entered. Ordering Provider: DEANDRA SMALL Report Released Date/Time: March 17, 2023 09:36 AM Reporting Lab: [facility] [address] Performing Lab: [facility] [address] [place] [facility] CBC MCH [ENTITIC MASS] BY AUTOMATED COUNT 28.6 pg 27 - 33 03/15 Specimen Type: BLOOD No comment entered. Ordering Provider: DEANDRA SMALL Report Released Date/Time: March 17, 2023 09:36 AM Reporting Lab: [facility] [address] Performing Lab: [facility] [address] [place] [facility] CBC MCHC [MASS/VOLUM E] BY AUTOMATED COUNT 32.1 g/dL 32.0 - 37.5 03/15 Specimen Type: BLOOD No comment entered. Ordering Provider: DEANDRA SMALL Report Released Date/Time: March 17, 2023 09:36 AM Reporting Lab: [facility] [address] Performing Lab: [facility] [address] [place] [facility] CBC PLATELETS [#/VOLUME] IN BLOOD BY AUTOMATED COUNT 222 10*3/u L 150 - 400 03/15 Specimen Type: BLOOD No comment entered. Ordering Provider: DEANDRA SAMLL Report Released Date/Time: March 17, 2023 09:36 AM Reporting Lab: [facility] [address] Performing Lab: [facility] [address] [place] [facility] CBC PLATELET MEAN VOLUME [ENTITIC VOLUME] IN BLOOD BY AUTOMATED COUNT 10.2 fL 7.4 - 10.4 03/15 Specimen Type: BLOOD No comment entered. Ordering Provider: DEANDRA SMALL Report Released Date/Time: March 17, 2023 09:36 AM Reporting Lab: [facility] [address] Performing Lab: [facility] [address] [place] [facility] CBC ERYTHROCYTE DISTRIBUTIO N WIDTH [RATIO] BY AUTOMATED COUNT 13.7 11.5 - 14.5 03/15 Specimen Type: BLOOD No comment entered. Ordering Provider: DEANDRA SMALL Report Released Date/Time: March 17, 2023 09:36 AM Reporting Lab: [facility] [address] Performing Lab: [facility] [address] [place] [facility] HEMOGLOBI N A1C HEMOGLOBIN A1C/HEMOGLO BIN.TOTAL [...] March 17, 2023 09:36 AM Reporting Lab: [facility] [address] Performing Lab: [facility] [address] [place] [facility] LIPID PANEL,NON -FASTING CHOLESTEROL [MASS/VOLUM E] [...] March 17, 2023 09:36 AM Reporting Lab: [facility] [address] Performing Lab: [facility] [address] [place] [facility] LIPID PANEL,NON -FASTING CHOLESTEROL IN HDL [...] March 17, 2023 09:36 AM Reporting Lab: [facility] [address] Performing Lab: [facility] [address] [place] [facility] LIPID PANEL,NON -FASTING CHOLESTEROL IN LDL [...] March 17, 2023 09:36 AM Reporting Lab: [facility] [address] Performing Lab: [facility] [address] [place] [facility] LIPID PANEL,NON -FASTING CHOLESTEROL IN VLDL [...] March 17, 2023 09:36 AM Reporting Lab: [facility] [address] Performing Lab: [facility] [address] [place] [facility] LIPID PANEL,NON -FASTING CHOLESTEROL NON HDL [...] March 17, 2023 09:36 AM Reporting Lab: [facility] [address] Performing Lab: [facility] [address] [place] [facility] LIPID PANEL,NON -FASTING TRIGLYCERID E [MASS/VOLUM [...] March 17, 2023 09:36 AM Reporting Lab: [facility] [address] Performing Lab: [facility] [address] [facility] Vital Signs Combined list of inpatient and outpatient Vital Signs from Department of Defense and Veterans Affairs, ranging from 12 months to all on record, depending upon the facility. Vital Sign Value Date Comments Source SYSTOLIC BLOOD PRESSURE 130 11/02/2024 13:33:09 [facility] DIASTOLIC BLOOD PRESSURE 86 11/02/2024 13:33:09 [facility] PULSE OXIMETRY 97 11/02/2024 13:33:09 [facility] WEIGHT 229.7 11/02/2024 13:33:09 [facility] [place] [facility] BMI 33kg/m2 11/02/2024 13:33:09 [facility] HEIGHT 69.75 11/02/2024 13:33:09 [facility] [place] [facility] TEMPERATURE 98 11/02/2024 13:33:09 [facility] P[facility]SE 70 11/02/2024 13:33:09 [facility] [place] [facility] RESPIRATION 16 11/02/2024 13:33:09 [facility] SYSTOLIC BLOOD PRESSURE 153 08/03/2024 14:10:18 [facility] DIASTOLIC BLOOD PRESSURE 92 08/03/2024 14:10:18 [facility] TEMPERATURE 98.5 08/03/2024 14:10:18 [facility] PULSE 64 08/03/2024 14:10:18 [facility] SYSTOLIC BLOOD PRESSURE 135 03/15/2024 07:58:13 [facility] DIASTOLIC BLOOD PRESSURE 86 03/15/2024 07:58:13 [facility] PULSE OXIMETRY 96 03/15/2024 07:58:13 [facility] 226.8 03/15/2024 07:58:13 [facility] [place] [facility] BMI 34kg/m2 03/15/2024 07:58:13 [facility] [place] [facility] PAIN 0 03/15/2024 07:58:13 [facility] HEIGHT 68.1 03/15/2024 07:58:13 [place] [facility] TEMPERATURE 97.5 03/15/2024 07:58:13 [facility] [place] [facility] P[facility]SE 62 03/15/2024 07:58:13 [facility] RESP[facility]ATION 18 03/15/2024 07:58:13 [facility] SYSTOLIC BLOOD PRESSURE 150 01/24/2024 14:46:41 [facility] DIASTOLIC BLOOD PRESSURE 91 01/24/2024 14:46:41 [facility] PULSE OXIMETRY 97 01/24/2024 14:46:41 [facility] 98.4 01/24/2024 14:46:41 [facility] [facility] PULSE 73 01/24/2024 14:46:41 [facility] [facility] RESP[facility]ATION 18 01/24/2024 14:46:41 [facility] Encounters Combined list of: 1) Encounters from Department of Veterans Affairs facilities [facility]. 2) Encounters from the Department of Defense facilities going back up to 280 months. Location Location Details Encounter Type Encounter Number Reason For Visit Attending Provider ADM Date DC Date Status Disposition Source [facility]) OUTPATIENT [id number] F/U NEEL Valencia 06/17 Released w/o Limitations [facility]) [facility]) OUTPATIENT [id number] puffy eyes HUEY POND 10/02 Released w/o Limitations [facility]) [facility] Optometry ) OUTPATIENT [id number] eye exam MELQUIADES LIRA 12/24 Released w/o Limitations [facility] Optomet ry) [facility] [place] 2[place] OUTPATIENT [id number] Annual PHA LIN NI 07/15 Released w/o Limitations [facility] [place] _[facility] 2) ANSHU Saab(Pete_F HC_BGAD 2) OUTPATIENT [id number] 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 DONNA Roth 09/08 Released with Work/Duty Limitations [place] _[facility] AD 2) [place] [facility] OUTPATIENT [id number] R knee JAVIER MCGRAW 09/15 Released with Work/Duty Limitations [place] [place] [place] [facility] OUTPATIENT [id number] f/u mri done r knee JAVIER MCGRAW 10/21 Released w/o Limitations [facility] [place] ) OUTPATIENT [id number] GEN EYE EXAM CURT ALATORRE 12/01 Released w/o Limitations [facility] [place] [facility] OUTPATIENT [id number] elbow/r ight/te nder/sh oulder/ neck/so re/pain MADELYN Maravilla 12/16 Released w/o Limitations [facility] [place] [facility] OUTPATIENT [id number] staffor d pt rt knee ck medicat ion and QI Maciel 02/10 Released w/o Limitations [facility] [place] [place] 2) OUTPATIENT [id number] left wrist pain YVAN COOK Evens 02/15 Released with Work/Duty Limitations [facility] [place] [facility] 2) [place] [facility] 2) OUTPATIENT [id number] [employer] REPRESENTATIVE AKUA TORRES 04/20 Released w/o Limitations [facility] [place] _[facility]_[place] [facility] 2) [place] [facility]) OUTPATIENT [id number] injecti ons right knee ORI CHINO 05/25 Released w/o Limitations [facility] [place] [place] OUTPATIENT [id number] right knee injecti on # 3 ORI CHINO A 06/08 Released w/o Limitations [facility] [place] [place] OUTPATIENT [id number] hyalgan r knee #3 ORI CHINO [place] 06/22 Released w/o Limitations [facility] [place] [place] 2[place] OUTPATIENT [id number] annual PHA JAVIER RUELAS 07/21 Released w/o Limitations [facility] [place] 2) [place] [facility] [place] ) OUTPATIENT [id number] HEARING LOSS ANNI SHERMAN 08/05 Released w/o Limitations [place] [facility] [place]iol[facility]) [facility] [place] 2) OUTPATIENT [id number] 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 Outpatient Encounter [id number] 05/20 [place] [facility] [place] [facility] Outpatient Encounter [id number] 05/20 [place] [facility] [place] [facility] Outpatient Encounter [id number] 05/22 [facility] MOD SED SAME PHYS/QHP 5/>YRS [id number] Diagnos is: ICD-10- CM K22.70 Louie 's esophag us without dysplas ia
RICKEY GIFFORD 05/24 [place] [facility] [facility] [place] [facility] Outpatient Encounter [id number] 05/24 [facility] Outpatient Encounter [id number] ALYSEBIANCA FATIMA 05/26 [facility] Outpatient Encounter [id number] MONA ZUNIGAI 06/08 [facility] HEARING AID CHECK BOTH EARS [id number] Diagnos is: ICD-10- CM Z46.1 Encount er for fitting and adjustm ent of hearing aid<br/ > BELKIS REED 06/09 [facility] OFFICE O/P EST MOD 30-39 MIN [id number] Diagnos is: ICD-10- CM H25.13 Age-rel ated nuclear catarac t, bilater al
GRAMATES,P EGGY H 06/29 [facility] OFFICE O/P EST SF 10-19 MIN [id number] Diagnos is: ICD-10- CM R21 Rash and other nonspec ific skin eruptio n
JUAN LUIS MAK 06/29 [facility] UNLISTED SPEC DERM SVC/PX [id number] Diagnos is: ICD-10- CM R21 Rash and other nonspec ific skin eruptio n
PARVIZ DO 06/29 [facility] Outpatient Encounter [id number] Diagnos is: ICD-10- CM L82.1 Other seborrh eic keratos is
MIRIAM CARTER 06/30 [facility] Outpatient Encounter [id number] 07/01 [facility] IMMUNIZATI ON ADMIN EACH ADD [id number] Diagnos is: ICD-10- CM Z23 Encount er for immuniz ation<b r/> DAVID EDWARDS 08/30 [facility] Outpatient Encounter [id number] KIMBERLY CARD 10/18 [facility] OFFICE O/P EST LOW 20-29 MIN [id number] Diagnos is: ICD-10- CM J01.90 Acute sinusit is, unspeci fied
CHUYDUANE BAR Dayne 10/19 [facility] Outpatient Encounter [id number] 10/19 [facility] Outpatient Encounter [id number] Diagnos is: ICD-10- CM J31.0 Chronic rhiniti s
Vi TREVINO 10/22 [facility] PT EDUCATION NOC INDIVID [id number] Diagnos is: ICD-10- CM G47.33 Obstruc tive sleep apnea (adult) (pediat arlette)
YANIV GERBER ICA S 11/18 [facility] Outpatient Encounter [id number] 12/03 [facility] Outpatient Encounter [id number] PARVIZ PICKETT 01/23 [facility] OFFICE O/P EST MOD 30 MIN [id number] Diagnos is: ICD-10- CM J01.91 Acute recurre nt sinusit is, unspeci fied
ME PIERRE SMALL 01/23 [facility] Outpatient Encounter [id number] 01/23 [facility] OFFICE O/P EST MOD 30 MIN [id number] Diagnos is: ICD-10- CM R09.81 Nasal congest ion<br/ > RAZ ANDUJAR ID 03/02 [facility] OFFICE O/P EST MOD 30 MIN [id number] Diagnos is: ICD-10- CM M72.2 Plantar fascial fibroma tosis<b r/> [facility] Outpatient Encounter [id number] 06/01 [facility] Outpatient Encounter [id number] Diagnos is: ICD-10- CM E78.5 Hyperli pidemia , unspeci fied
ME GEOVANNY [facility] 06/09 [facility] Outpatient Encounter [id number] 06/23 [facility] OFFICE O/P EST MOD 30 MIN [id number] Diagnos is: ICD-10- CM H25.13 Age-rel ated nuclear catarac t, bilater al
GEORGIADIS LEIGH A 07/12 [facility] DENTAL PANORAMIC IMAGE [id number] Diagnos is: ICD-10- CM Z01.20 Encount er for dental exam and cleanin g w/o abnorma l finding s
WYATT RUTH 08/03 [facility] HEARING AID REPAIR/MOD IFYING [id number] Diagnos is: ICD-10- CM H90.3 Sensori neural hearing loss, bilater al
DEBBIE GERMAIN IDGET M 08/17 [facility] Outpatient Encounter [id number] 08/17 [facility] IMMUNIZATI ON ADMIN [id number] Diagnos is: ICD-10- CM Z23 Encount er for immuniz ation<b r/> MARIA DE JESUS HARRISON 08/24 [facility] Outpatient Encounter [id number] 09/29 [facility] Outpatient Encounter [id number] GALEN LebronTIMBO SALINAS 10/18 [facility] Outpatient Encounter [id number] 10/23 [facility] ELECTROCAR DIOGRAM REPORT [id number] Diagnos is: ICD-10- CM Z13.6 Encount er for screeni ng for cardiov ascular disorde rs
JANENE RIZZO 11/02 [facility] OFFICE O/P EST MOD 30 MIN [id number] Diagnos is: ICD-10- CM Z01.818 Encount er for other preproc edural examina tion
ARI REDD 11/02 [facility] Procedures Combined list of: 1) Procedures from Department of [facility] Affairs facilities going back up to thelast 18 months, not all [place] non-surgical procedures are included; 2) All procedures from the Department of Defense facilities. Procedure Procedure Type Code Date Perfomer Comments [facility] e ACOUSTIC REFLEX TESTING, THRESHOLD 007 [facility] ARTHROCENTESIS, ASPIRATION AND/OR INJECTION, MAJOR JOINT OR BURSA (EG, SHOULDER, HIP, KNEE, SUBACROMIAL BURSA); WITHOUT ULTRASOUND GUIDANCE 007 [facility] ARTHROCENTESIS, ASPIRATION AND/OR INJECTION, MAJOR JOINT OR BURSA (EG, SHOULDER, HIP, KNEE, SUBACROMIAL BURSA); WITHOUT ULTRASOUND GUIDANCE 007 [facility] ARTHROCENTESIS, ASPIRATION AND/OR INJECTION, MAJOR JOINT [...] (EG, ECGS, BLOOD PRESSURES, HEMATOLOGIC DATA) 004 [facility] EDUCATIONAL SUPPLIES, SUCH BOOKS, TAPES, AND PAMPHLETS, FOR THE PATIENT'S EDUCATION AT COST TO PHYSICIAN OR OTHER QUALIFIED HEALTH CHANGE MANAGEMENT EXPERT 003 DoD DETERMINATION OF REFRACTIVE STATE 003 [...] PHOTOGRAPHY, SLIT LAMP PHOTOGRAPHY, GONIOPHOTOGRAPHY, STEREO-PHOTOGRAPHY) 006 [facility] FAMILY PSYCHOTHERAPY (CONJOINT PSYCHOTHERAPY) (WITH PATIENT PRESENT), 50 MINUTES 005 [facility] FAMILY PSYCHOTHERAPY (CONJOINT PSYCHOTHERAPY) (WITH PATIENT PRESENT), 50 MINUTES 005 [facility] FAMILY PSYCHOTHERAPY (CONJOINT PSYCHOTHERAPY) (WITH PATIENT PRESENT), 50 MINUTES 005 Do[facility] PSYCHIATRIC DIAGNOSTIC INTERVIEW EXAMINATION 005 [facility] PSYCHIATRIC DIAGNOSTIC INTERVIEW EXAMINATION 005 DoD PSYCHIATRIC DIAGNOSTIC INTERVIEW EXAMINATION [facility] PSYCHIATRIC DIAGNOSTIC INTERVIEW EXAMINATION DoD SELF-CARE/HOME MANAGMENT TRAIN (EG,ACT OF DAILY LIVING (ADL) &COMPENSAT TRAIN,MEAL PREPARATION,SAFETY PROCS,AND INSTRUCT IN USE OF ASST TECHNOLOGY DEV/ADPT EQUIP) DIR ONE-ON-ONE CONT,EA 15 MINUTES 005 [facility] PSYCHIATRIC DIAGNOSTIC INTERVIEW EXAMINATION 005 [facility] PSYCHIATRIC DIAGNOSTIC INTERVIEW EXAMINATION 005 [facility] PSYCHIATRIC DIAGNOSTIC INTERVIEW EXAMINATION 005 [facility] Acoustic Reflex Testing 007 ANNI SHERMAN [facility] Tympanometry Tympanometry 95956 007 ANNI SHERMAN [facility] Comprehensive Audiometry Comprehensive Audiometry 60246 007 ANNI SHERMAN [facility] Arthrocentesis Injection Of Knee Joint Arthrocentesis Injection Of Knee Joint 007 ORI CHINO [facility] Arthrocentesis Injection Of Knee Joint Arthrocentesis Injection Of Knee Joint 007 ORI CHINO PROCEDURE HYALGAN INJECTION: Risks and Benefits discussed. Patient elects to proceded. RIGHT Knee: Knee prepped with betadine and injected with prefilled 2ml syringe of Synvisc in sterile manner on lateral aspect [facility] Arthrocentesis Injection Of Knee Joint Arthrocentesis [...] Pt tolerated well, good response to injection. [facility] [employer] Services Fitting Bifocal Except For Aphakia [facility] Fitting Bifocal Except For Aphakia 88439 007 [facility] Ophthalmological New Patient Start Comprehensive Care Ophthalmological New Patient Start Comprehensive Care 12637 007 [facility] Determination Of Refractive State Determination Of Refractive State 66875 007 [facility]T AL[facility] Ophthalmological New Patient Start Comprehensive Care Ophthalmological New Patient Start Comprehensive Care 71397 006 MELQUIADES LIRA [facility] Determination Of Refractive State Determination Of Refractive State 42637 006 MELQUIADES LIRA [facility] Slit Lamp Examination With Photography Slit Lamp Examination With Photography 10354 006 MELQUIADES LIRA [facility] Clinical Social Work Counseling Family Conjoint 005 TIFFANIE RAPHAEL [facility] Clinical Social Work Counseling Family Conjoint 005 TIFFANIE RAPHAEL [facility] Clinical Social Work Counseling Family Conjoint 005 TIFFANIE RAPHAEL [facility] Social History Combined list of available smoking, tobacco, and other social history from Department of Defense and Veterans Affairs facilities. Social History Type Response Date Comment Sour e Tobacco smoking status [facility] VA-TOBACCO NEVER USED 01/24/2024 [facility] History of tobacco use VA-TOBACCO NEVER USED 03/17/2023 [facility] History of tobacco use VA-TOBACCO NEVER USED 03/09/2022 [facility] History of tobacco use VA-TOBACCO NEVER USED 03/10/2021 [facility] History of tobacco use LIFETIME NON-SMOKER 05/24/2020 [facility] History of tobacco use VA-TOBACCO NEVER USED 03/10/2019 [facility] History of tobacco use LIFETIME NON-TOBA TAG MARKER USER 01/25/2018 [facility] History of tobacco use LIFETIME NON-TOBA TAG MARKER USER 01/20/2016 [facility] History of tobacco use LIFETIME NON-TOBA TAG MARKER USER 01/09/2015 [facility] History of tobacco use LIFETIME NON-TOBA TAG MARKER USER 12/25/2011 [facility] This section is an empty social history section. [facility]
[2024-11-24] MEDS: SODIUM CHLORIDE 0.9 % (FLUSH) 10 ML SYRINGE IVF (08:37)
[2024-11-24] MEDS: OXYMETAZOLINE (AFRIN) SOAK 1 EACH TOPICAL (08:38)
[2024-11-24] MEDS: LACTATED RINGERS 1000 ML 1,000 ML 100 ML IV (09:36)
[2024-11-24] MEDS: BUPIVACAINE 0.5%/EPINEPHRINE 0.9 MG (30.9 ML) INJECTION (10:15)
[2024-11-24] MEDS: COCAINE HCL 4 % 4 ML SOLUTION NOSTRIL-B (10:17)
[2024-11-24] MEDS: MUPIROCIN 1 GM PACKET 1 APPLIC TOPICAL (10:17)
[2024-11-24] MEDS: AYR SALINE NASAL GEL 1 APPLIC NOSTRIL-B (10:19)
--- NOTE | 2024-11-24 10:48 | P.ANES_ITS ---
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
--- NOTE | 2024-11-24 10:48 | W.ANESCHARGE ---
Anesthesia Charges Start Date/Time Anesthesia Start Date: 11/24/24 Anesthesia Start Time: 09:50 Stop Date/Time Anesthesia Stop Date: 11/24/24 Anesthesia Stop Time: 10:50 Coding CPT Codes CPT Codes: ANESTH NOSE/SINUS SURGERY - 60232 ([id number]) P2 - PATIENT W/MILD SYST DISEASE, QK - RESIDENT CARE SUPERVISOR 2-4 CNCRNT ANES PROC, QX - ACCESS DATABASE DEVELOPER SVC W/ MD MED DIRECTION
--- NOTE | 2024-11-24 10:49 | P.ANES_ITS ---
Anesthesia Charges Start Date/Time Anesthesia Start Date: 11/24/24 Anesthesia Start Time: 09:50 Stop Date/Time Anesthesia Stop Date: 11/24/24 Anesthesia Stop Time: 10:50 Coding CPT Codes CPT Codes: ANESTH NOSE/SINUS SURGERY - 84387 ([id number]) P2 - PATIENT W/MILD SYST DISEASE, QK - PRINTING TABLE WORKER 2-4 CNCRNT ANES PROC, QX - EMOTIONALLY IMPAIRED TEACHER SVC W/ MD MED DIRECTION
--- NOTE | 2024-11-24 10:49 | W.ANESCHARGE ---
Anesthesia Charges Start Date/Time Anesthesia Start Date: 11/24/24 Anesthesia Start Time: 09:50 Stop Date/Time Anesthesia Stop Date: 11/24/24 Anesthesia Stop Time: 10:50 Coding CPT Codes CPT Codes: ANESTH NOSE/SINUS SURGERY - 58819 ([id number]) P2 - PATIENT W/MILD SYST DISEASE, QK - UROLOGIST MD 2-4 CNCRNT ANES PROC, QX - NET TRAINER SVC W/ MD MED DIRECTION
[2024-11-24] MEDS: IBUPROFEN 400 MG TABLET PO (11:33)
[2024-11-24] MEDS: ACETAMINOPHEN 500 MG TABLET PO (11:33)
--- NOTE | 2024-11-24 12:58 | P.ENTPROC_ITS ---
Procedure Note Date of procedure: 11/24/24 Procedure: Preop diagnosis chronic bilateral ethmoid maxillary sinusitis, deviated septum, nasal obstruction, bilateral inferior turbinate hypertrophy Postoperative diagnosis same Procedure nasal septoplasty, submucous partial resection inferior turbinates, endoscopic bilateral complete ethmoidectomy, endoscopic bilateral maxillary antrostomies with tissue removal Under general endotracheal anesthesia patient was prepped and draped in usual fashion nose decongested and injected. A right hemitransfixion incision was made left anterior posterior tunnels were created. Right anterior and posterior tunnels were created as well. A vertical incision was made through the cartilage anterior to the bone and the posterior deflected portions of septal bone were resected by cutting above and below the deflected portion removing with the Tse [place]ito forceps. A large piece of bone was trimmed and returned to intraseptal space. The hemitransfixion was closed with 2 4-0 Vicryl sutures. Stab incision was made in the anterior of the right inferior turbinate a tunnel created with a Dalia dissector. The lynsey bone was outfractured and a conservative anterior submucous resection performed. The Coblation was used to cauterize intramurally along the inferior 10%. This was repeated on the left side in identical fashion. Noted for the remainder of the procedure 0 degree endoscopy and image guidance system were utilized. On the left side the inferior quarter the uncinate process was taken down and a 8 mm and maxillary antrostomy created. But there was polypoid tissue occluding the natural os. There was also polyp tissue remov ed from the floor of the sinus. The ethmoid bulla was taken down and dissection carried out in anterior to posterior direction removing a moderate amount of polypoid tissue. These 2 procedures repeated on the right side in identical fashion with essentially identical findings. Silastic stents were secured on either side the septum with 3-0 nylon and Merocel packing placed in the middle meatus on each side. Patient procedure well was taken recovery in satisfactory condition. Blood loss was less than 20 mL. Surgeon: Sonny Price MD
== END 2024-11-24 12:57 | disposition home or self-care (01) ==
PROVIDERS: Visit Provider Otolaryngology
PROC: (CPT 31231; principal; 2024-11-24 09:00)
DX: J32.0 Chronic maxillary sinusitis (principal); J34.2 Deviated nasal septum; J34.3 Hypertrophy of nasal turbinates; J34.89 Other specified disorders of nose and nasal sinuses
CPT/HCPCS: 30520; 30140; 31255; 31267; 00160; 88305; A9270; J7120